=== PATIENT | female | born 1945 | race Caucasian/White ===

== ENCOUNTER 2020-04-30 13:21 | Outpatient (REF) | payer MEDICARE, SELFPAY | END 2020-04-30 13:22 | disposition home or self-care (01) | LOC: HO.LAB 13:21 | PROVIDERS: PCP Internal Medicine; Visit Provider Internal Medicine | DX: Z20.828 Contact with and (suspected) exposure to other viral communicable diseases (principal) | CPT/HCPCS: 36415; C9803; U0003 ==

== ENCOUNTER 2020-06-12 11:24 | Outpatient (REF) | payer MEDICARE, SELFPAY ==
[2020-06-12 13:30] LABS: Alanine Aminotransferase 53 U/L (0-31); Albumin Level 4.6 g/dL (3.5-5.0); Alkaline Phosphatase 139 U/L (39-117); Aspartate Amino Transferase 33 U/L (5-31); Bilirubin Direct 0.3 mg/dL (0.0-0.5); Bilirubin Total 0.9 mg/dL (0.0-1.0); Cholesterol 172 mg/dL; Glucose Fasting 96 mg/dL (60-99); HDL Cholesterol 53 mg/dL; LDL Cholesterol Calculated 102 mg/dl; Total Protein 6.9 g/dL (6.5-8.0); Triglycerides 87 mg/dL
[2020-06-12 13:52] LABS: Estimated Average Glucose 103 mg/dL; Hemoglobin A1c % 5.2 %
[2020-06-12 13:53] LABS: Reflex LDLD? No
== END 2020-06-12 11:25 | disposition home or self-care (01) ==
LOC: HO.LAB 11:24
PROVIDERS: PCP Internal Medicine; Visit Provider Internal Medicine
DX: R73.03 Prediabetes (principal); E78.00 Pure hypercholesterolemia, unspecified
CPT/HCPCS: 36415; 80061; 80076; 82947; 83036

== ENCOUNTER 2020-10-18 08:25 | Outpatient (REF) | payer MEDICARE, SELFPAY ==
--- NOTE | ~2020-10-18 | MM_ITS ---
EXAMINATION: MM SCREENING DIGITAL BREAST TOMOSYNTHESIS, BILATERAL CLINICAL INFORMATION: Screening. Asymptomatic. The lifetime risk of breast cancer based on the Tyrer-Cuzick Model is 3.2%. COMPARISON: Mammography: 03/16/2019 and studies dating back to 01/15/2014. TECHNIQUE: Digital breast tomosynthesis is performed in both the craniocaudal and mediolateral oblique views along with computer-aided detection (CAD). Synthesized 2D images are generated from the tomosynthesis. Additional right exaggerated craniocaudal view performed. FINDINGS: There are scattered areas of fibroglandular density (ACR BI-RADS breast composition Category b). No new abnormal dominant masses or suspicious grouping of microcalcifications identified. There is again noted to be a stable region of architectural distortion within the central superior aspect of the right breast likely postsurgical in nature. MM/MM tomosynthesis screening BI IMPRESSION: There are no significant changes from prior study. ASSESSMENT: BI-RADS 2: Benign. RECOMMENDATION: Routine annual mammography screening. This patient's information was entered into a reminder system with a target due date for their next mammogram.
== END 2020-10-18 08:26 | disposition home or self-care (01) ==
LOC: HO.MAMMO 08:25
PROVIDERS: PCP Internal Medicine; Visit Provider Internal Medicine
DX: Z12.31 Encounter for screening mammogram for malignant neoplasm of breast (principal)
CPT/HCPCS: 77063; 77067

== ENCOUNTER → 2020-11-05 09:10 | Outpatient (BNVA) | payer MEDICARE, SELFPAY | PROVIDERS: PCP Internal Medicine; Referring Provider Internal Medicine; Visit Provider Internal Medicine Cardiovascular Disease | DX: I25.10 Atherosclerotic heart disease of native coronary artery without angina pectoris (principal); E78.5 Hyperlipidemia, unspecified; R01.1 Cardiac murmur, unspecified | CPT/HCPCS: 93005; 99212 ==

== ENCOUNTER 2020-11-06 06:45 | Outpatient (REF) | payer MEDICARE, SELFPAY ==
[2020-11-06 08:19] LABS: Alanine Aminotransferase 40 U/L (0-31); Albumin Level 4.1 g/dL (3.5-5.0); Alkaline Phosphatase 139 U/L (39-117); Aspartate Amino Transferase 32 U/L (5-31); Bilirubin Direct 0.3 mg/dL (0.0-0.5); Bilirubin Total 0.7 mg/dL (0.0-1.0); Cholesterol 148 mg/dL; HDL Cholesterol 49 mg/dL; LDL Cholesterol Calculated 87 mg/dl; Total Protein 6.5 g/dL (6.5-8.0); Triglycerides 63 mg/dL
--- NOTE | 2020-11-06 14:14 | CA_ITS ---
Transthoracic Echocardiogram Patient (Last, First, Middle): Malorie Duvall A Gender: Female Date of : 1945 Age: 75 Procedure Date: 11/06/2020 Procedure Type: Transthoracic Echocardiogram Location: OP Height: 162.56 cm Weight: 62.14 kg BSA: 1.67 m2 Heart Rate: bpm BP: 120 / 76 mmHg Lube Worker: ANA LAURA Larose MD: Gasper Brenner MD Mower Mechanic: Gasper Brenner MD Symptoms: R01.1 - Cardiac murmur, unspecified Study Quality: Good ECG Rhythm: Sinus Conclusions: - 1. Normal LV systolic function with grade 1 diastolic dysfunction 2. Mild aortic regurgitation with mild fibrocalcific aortic valve changes noted 3. Mildly dilated ascending aorta 4. Mildly elevated right ventricular systolic pressure 5. No pericardial effusion Findings Left Ventricle Normal left ventricular size, thickness, and systolic function. The visually estimated ejection fraction is between 60-65%. Spectral Doppler is indicative of an impaired relaxation filling pattern. E/E prime ratio is <8, consistent with normal filling pressures. Evidence suggests grade I (mild) diastolic dysfunction. Right Ventricle Normal right ventricular cavity size and systolic function. Atria Both atria are normal in size. There is lipomatous hypertrophy of the interatrial septum. There is no evidence of interatrial shunt. Aortic Valve There is mild calcification of the aortic valve. There is mild thickening of the aortic valve. There is no aortic valve stenosis. There is mild aortic valve regurgitation. Mitral Valve There is mild anterior and posterior mitral leaflet thickening. There is mild mitral valve regurgitation. There is no mitral valve stenosis. Pulmonic Valve The pulmonic valve was not well visualized. Tricuspid Valve Likely normal tricuspid valve structure and function. There is mild tricuspid valve regurgitation. Mild pulmonary hypertension is present. Great Vessels The pulmonary artery was not well visualized. There is mild dilatation of the ascending aorta measuring 4.30 cm. Venous The inferior vena cava is normal in size and collapses greater than 50% with inspiration. Pericardium/Pleural There is no evidence of pericardial effusion. Prior Study Comparison Changes noted compared to prior study dated: 12/22/2018. Ascending aorta is mildly dilated Measurements 2D Linear Measurements IVSd: 1.01 0.6-0.9/0.6-1.0 cm LVIDd: 4.29 3.9-5.3/4.2-5.9 cm LVIDd Index: 2.57 2.4-3.2/2.2-3.1 cm/m2 LVIDs: 2.89 2.0-3.6 cm LVPWd: 0.98 0.7-1.1 cm Ao Root: 3.50 2.1-3.5 cm LA Diam: 3.30 2.7-3.8/3.0-4.0 cm LAIDs Index: 1.98 1.5-2.3 cm/m2 LV Mass: 174.85 67-162/88-224 g LV Mass Index: 104.70 43-95/49-115 g/m2 LVOT Diam: 2.20 3.0+(-)1.3 cm 2D Systolic Function EF 4C: 57.50 >55% EF 2C: 60.50 >55% EF BiP: 57.20 >55% Mitral Valve MV Pk E: 0.56 MV PK A: 0.74 MV Decel Time: 271.00 E/A: 0.80 E'Lateral: 5.11 E'Medial: 5.55 E/E' Med: 10.00 E/E' Lat: 10.90 PHT: 79.00 MVA PHT: 2.78 Decel Reynolds: 2.06 Aortic Valve AoV Pk Pavel: 1.74 AoV Mn Pavel: 1.05 AoV VTI: 0.36 AoV Pk Grad: 12.00 Aov Mn Grad: 5.00 HERBERT Cont.VTI: 3.10 AI Pk Pavel: 5.13 AI Reynolds: 3.52 LVOT LVOT Pk Pavel: 1.53 LVOT Mn Pavel: 0.89 LVOT VTI: 0.29 LVOT Pk Grad: 9.00 LVOT Mn Grad: 4.00 LVOT Diam: 2.20 LVOT Area: 3.80 Diastolic Function MV Pk E: 0.56 MV Pk A: 0.74 E/A: 0.80 E'Medial: 5.55 E/E' Med: 10.00 E' Laterial: 5.11 E/E' Lat: 10.90 Tricuspid Valve TR Pk Pavel: 3.03 TR Pk Grad: 37.00 RA Press: 3.00 RVSP: 40.00 Great Vessels Aorta Ao Root-2D: 3.50 2.0-3.7 cm Ao Asc: 4.30 2.1-3.4 cm Ao Arch: 2.90 Updated in Other Vendor System with Status of Final Gasper rBenner MD electronically signed on 11/06/2020 4:25:08 PM with status of Final
== END 2020-11-06 06:46 | disposition home or self-care (01) ==
LOC: HO.LAB 06:45
PROVIDERS: PCP Internal Medicine; Visit Provider Internal Medicine Cardiovascular Disease
DX: I25.10 Atherosclerotic heart disease of native coronary artery without angina pectoris (principal); R01.1 Cardiac murmur, unspecified; E78.5 Hyperlipidemia, unspecified
CPT/HCPCS: 36415; 80061; 80076; 93306

== ENCOUNTER 2020-11-14 07:21 | Outpatient (REF) | payer MEDICARE, SELFPAY ==
[2020-11-14 09:05] LABS: Alanine Aminotransferase 35 U/L (0-31); Albumin Level 4.4 g/dL (3.5-5.0); Alkaline Phosphatase 109 U/L (39-117); Aspartate Amino Transferase 28 U/L (5-31); Bilirubin Direct 0.3 mg/dL (0.0-0.5); Bilirubin Total 0.7 mg/dL (0.0-1.0); Total Protein 6.9 g/dL (6.5-8.0)
== END 2020-11-14 07:22 | disposition home or self-care (01) ==
LOC: HO.LAB 07:21
PROVIDERS: PCP Internal Medicine; Visit Provider Internal Medicine Cardiovascular Disease
DX: E78.5 Hyperlipidemia, unspecified (principal)
CPT/HCPCS: 36415; 80076

== ENCOUNTER 2020-11-25 10:06 | Outpatient (REF) | payer MEDICARE, SELFPAY ==
[2020-11-25 10:09] LABS: MANUAL DIFF FLAG NO
[2020-11-25 10:54] LABS: Basophils Percent Auto 0.6 % (0-2); Eosinophils Absolute Auto 0.1 X10*3/uL (0.0-0.4); Eosinophils Percent Auto 1.3 % (0-4); Hematocrit 41.2 % (37-47); Hemoglobin 13.3 g/dl (12.0-16.0); Imm Gran Abs Auto 0.01 X10*3/uL (0.00-0.03); Imm Gran Pct Auto 0.2 % (0.0-0.4); Lymphocytes Absolute Auto 2.1 X10*3/uL (1.2-4.9); Mean Corpuscular HGB Conc 32.3 g/dl (31.0-35.0); Mean Corpuscular Hemoglobin 29.7 pg (27.0-33.0); Mean Platelet Volume 13.3 fL (9.4-12.3); Monocytes Absolute Auto 0.4 X10*3/uL (0.1-1.2); Monocytes Percent Auto 7.1 % (2-11); Neutrophils Absolute Auto 3.5 X10*3/uL (2.0-8.3); Neutrophils Percent Auto 56.8 % (45-73); Platelet Count 174 X10*3/uL (160-400); Red Blood Count 4.48 X10*6/uL (4.20-5.50); Red Cell Distribution Width 12.9 % (11.0-16.0); White Blood Count 6.2 X10*3/uL (4.8-10.8)
[2020-11-25 11:01] LABS: Glucose Urine UA NEG (NEG); Leukocyte Esterase Urine NEG (NEG); Nitrite Urine NEG (NEG); Urine Blood NEG (NEG); Urine Ketones NEG (NEG); Urine Protein NEG (NEG-TRACE)
[2020-11-25 11:04] LABS: Appearance Urine CLEAR; Color Urine STRAW
[2020-11-25 11:36] LABS: Alanine Aminotransferase 41 U/L (0-31); Albumin Level 4.4 g/dL (3.5-5.0); Alkaline Phosphatase 97 U/L (39-117); Anion Gap 12 (12-20); Aspartate Amino Transferase 32 U/L (5-31); Bilirubin Total 0.8 mg/dL (0.0-1.0); Blood Urea Nitrogen 19 mg/dL (9-16); Carbon Dioxide 26 mmol/L (22-29); Chloride 105 mmol/L (96-108); Estimated Glomerular Filt Rate > 60; Glucose Fasting 101 mg/dL (60-99); Potassium 4.1 mmol/L (3.3-5.1); Sodium 139 mmol/L (135-145)
[2020-11-25 11:57] LABS: Vitamin D 25-OH Total 37.8 ng/mL (>30)
== END 2020-11-25 10:07 | disposition home or self-care (01) ==
LOC: HO.LNP 10:06
PROVIDERS: Visit Provider Internal Medicine
DX: E78.00 Pure hypercholesterolemia, unspecified (principal); M85.80 Other specified disorders of bone density and structure, unspecified site; E55.9 Vitamin D deficiency, unspecified; R73.03 Prediabetes
CPT/HCPCS: 80053; 81003; 82306; 85025

== ENCOUNTER 2020-11-28 07:47 | Outpatient (REF) | payer MEDICARE, SELFPAY ==
[2020-11-28 09:01] LABS: Alanine Aminotransferase 44 U/L (0-31); Albumin Level 4.4 g/dL (3.5-5.0); Alkaline Phosphatase 104 U/L (39-117); Aspartate Amino Transferase 31 U/L (5-31); Bilirubin Direct 0.3 mg/dL (0.0-0.5); Bilirubin Total 0.7 mg/dL (0.0-1.0); Total Protein 6.8 g/dL (6.5-8.0)
== END 2020-11-28 07:48 | disposition home or self-care (01) ==
LOC: HO.LAB 07:47
PROVIDERS: PCP Internal Medicine; Visit Provider Internal Medicine Cardiovascular Disease
DX: E78.5 Hyperlipidemia, unspecified (principal)
CPT/HCPCS: 36415; 80076

== ENCOUNTER 2020-12-22 15:49 | Outpatient (REF) | payer MEDICARE, SELFPAY ==
[2020-12-22 16:04] LABS: Glucose Urine UA NEG (NEG); Leukocyte Esterase Urine 3+ (NEG); Nitrite Urine NEG (NEG); UACC Culture Trigger YES; Urine Blood 2+ (NEG); Urine Ketones NEG (NEG); Urine Protein NEG (NEG-TRACE)
[2020-12-22 16:09] LABS: Appearance Urine HAZY; Color Urine YELLOW
[2020-12-22 16:48] LABS: Squamous Epithelial Cell Urine 1+ /LPF; UACC CULT YES; WBC Urine 50-75 /HPF (0-4)
[2020-12-22 16:49] LABS: Bacteria Urine 2+ /LPF
== END 2020-12-22 15:50 | disposition home or self-care (01) ==
LOC: HO.LNP 15:49
PROVIDERS: Visit Provider Internal Medicine
DX: N30.00 Acute cystitis without hematuria (principal)
CPT/HCPCS: 81001; 87086; 87088; 87186

== ENCOUNTER 2021-01-06 11:26 | Outpatient (REF) | payer MEDICARE, SELFPAY ==
[2021-01-06 12:28] LABS: Appearance Urine CLEAR; Color Urine STRAW; Glucose Urine UA NEG (NEG); Leukocyte Esterase Urine NEG (NEG); Nitrite Urine NEG (NEG); PH 6.5 (5.0-8.0); Urine Blood NEG (NEG); Urine Ketones NEG (NEG); Urine Protein NEG (NEG-TRACE)
[2021-01-06 13:50] LABS: RBC Urine 0 /HPF (0); Squamous Epithelial Cell Urine TRACE /LPF; WBC Urine 0 /HPF (0-4)
== END 2021-01-06 11:27 | disposition home or self-care (01) ==
LOC: HO.LNP 11:26
PROVIDERS: Visit Provider Internal Medicine
DX: Z87.440 Personal history of urinary (tract) infections (principal)
CPT/HCPCS: 81001; 87086

== ENCOUNTER 2021-02-19 09:48 | Outpatient (REF) | payer MEDICARE, SELFPAY ==
[2021-02-19 10:27] LABS: Appearance Urine CLEAR; Color Urine YELLOW; Glucose Urine UA NEG (NEG); Leukocyte Esterase Urine 3+ (NEG); Nitrite Urine POS (NEG); Specific Gravity - Urine <= 1.005 (1.005-1.025); Urine Blood TRACE (NEG); Urine Ketones NEG (NEG); Urine Protein NEG (NEG-TRACE)
[2021-02-19 10:48] LABS: Squamous Epithelial Cell Urine 2+ /LPF
[2021-02-19 10:49] LABS: Bacteria Urine 3+ /LPF; Mucus Urine 1+ /LPF
== END 2021-02-19 09:49 | disposition home or self-care (01) ==
LOC: HO.LNP 09:48
PROVIDERS: Visit Provider Internal Medicine
DX: N89.8 Other specified noninflammatory disorders of vagina (principal)
CPT/HCPCS: 81001; 87086; 87088; 87186

== ENCOUNTER 2021-03-24 12:52 | Outpatient (REF) | payer MEDICARE, SELFPAY ==
--- NOTE | ~2021-03-24 | US_ITS ---
EXAMINATION: US RETROPERITONEAL LIMITED (RENAL ONLY) CLINICAL INFORMATION: Nodule left kidney. COMPARISON: CT abdomen and pelvis 02/22/2019 TECHNIQUE: Real-time imaging of the kidneys. FINDINGS: RIGHT KIDNEY: 10.0 x 3.8 x 4.7 cm (SAG x AP x TRV). The kidney is normal in size, contour, and echogenicity. Renal cortical thickness is normal. No renal calculi or hydronephrosis. There is anechoic cyst with septations in the midpole laterally measuring 4.0 x 3.7 x 3.8 cm. LEFT KIDNEY: 11.0 x 4.2 x 4.3 cm (SAG x AP x TRV). The kidney is normal in size, contour, and echogenicity. Renal cortical thickness is normal. No renal calculi or focal parenchymal lesions. There is mild hydronephrosis with pelvic fullness. US/US renal BI IMPRESSION: Anechoic cyst with septations midpole right kidney measuring 4.0 cm. Mild hydronephrosis versus a pelvic fullness left kidney.
== END 2021-03-24 12:53 | disposition home or self-care (01) ==
LOC: HO.US 12:52
PROVIDERS: PCP Internal Medicine; Visit Provider Internal Medicine
DX: N28.89 Other specified disorders of kidney and ureter (principal)
CPT/HCPCS: 76775

== ENCOUNTER 2021-07-21 10:25 | Outpatient (REF) | payer MEDICARE, SELFPAY ==
[2021-07-21 11:18] LABS: Estimated Average Glucose 105 mg/dL; Hemoglobin A1c % 5.3 %
[2021-07-21 11:21] LABS: Alanine Aminotransferase 25 U/L (0-31); Albumin Level 4.4 g/dL (3.5-5.0); Alkaline Phosphatase 80 U/L (39-117); Aspartate Amino Transferase 21 U/L (5-31); Bilirubin Direct 0.3 mg/dL (0.0-0.5); Bilirubin Total 0.8 mg/dL (0.0-1.0); Cholesterol 178 mg/dL; Glucose Fasting 103 mg/dL (60-99); HDL Cholesterol 47 mg/dL; LDL Cholesterol Calculated 113 mg/dl; Total Protein 6.9 g/dL (6.5-8.0); Triglycerides 90 mg/dL
== END 2021-07-21 10:26 | disposition home or self-care (01) ==
LOC: HO.LNP 10:25
PROVIDERS: Visit Provider Internal Medicine
DX: R73.03 Prediabetes (principal); E78.00 Pure hypercholesterolemia, unspecified
CPT/HCPCS: 80061; 80076; 82947; 83036

== ENCOUNTER 2021-08-22 09:29 | Outpatient (REF) | payer MEDICARE, SELFPAY ==
--- NOTE | ~2021-08-22 | XR_ITS ---
EXAMINATION: XR THORACOLUMBAR SPINE CLINICAL INFORMATION: Pain COMPARISON: None TECHNIQUE: 3 views of the thoracic spine FINDINGS: There is curvature of the lower thoracic and upper lumbar spine to the right. Bone alignment is otherwise normal. No fracture or dislocation is seen. There is multilevel degenerative disc disease greatest in the mid thoracic spine. Paraspinal soft tissues are normal. XR/XR thoracic spine 2V IMPRESSION: Mild curvature of the lower thoracic and upper lumbar spine to the right and degenerative changes.
--- NOTE | ~2021-08-22 | XR_ITS ---
EXAMINATION: XR RIBS, LEFT CLINICAL INFORMATION: Pain COMPARISON: Previous chest x-ray November 2018 TECHNIQUE: 3 views of the left ribs and one view of the chest were obtained. FINDINGS: The cardiac and mediastinal contours are stable. The thoracic aorta is tortuous but unchanged. The lungs are clear. There is no pleural effusion or pneumothorax. There are degenerative changes of the spine and mild scoliosis. There are degenerative changes of the shoulder joints. The left ribs are unremarkable. No fracture or bone lesion is seen. XR/XR ribs LT min 3V w CXR1V IMPRESSION: No evidence for acute disease in the chest. No rib fracture seen.
== END 2021-08-22 09:30 | disposition home or self-care (01) ==
LOC: HO.XRAY 09:29
PROVIDERS: PCP Internal Medicine; Visit Provider Internal Medicine
DX: R07.81 Pleurodynia (principal); M54.9 Dorsalgia, unspecified
CPT/HCPCS: 71101; 72070

== ENCOUNTER 2021-11-04 09:18 | Outpatient (REF) | payer MEDICARE, SELFPAY ==
--- NOTE | ~2021-11-04 | MM_ITS ---
EXAMINATION: MM SCREENING DIGITAL BREAST TOMOSYNTHESIS, BILATERAL CLINICAL INFORMATION: Screening. Asymptomatic. History right excisional biopsy for LCIS, 2001. The lifetime risk of breast cancer based on the Tyrer-Cuzick Model is 5%. COMPARISON: Mammography: 10/18/2020, 03/16/2019, 03/01/2018 TECHNIQUE: Digital breast tomosynthesis is performed in both the craniocaudal and mediolateral oblique views along with computer-aided detection (CAD). Synthesized 2D images are generated from the tomosynthesis. FINDINGS: There are scattered areas of fibroglandular density (ACR BI-RADS breast composition Category b). There are no significant masses, abnormal calcifications, or other abnormalities. No developing density or interval architectural abnormality. There is minor scarring related to prior excisional biopsy again seen on the right with mild decreased breast size as before. The axilla and skin contours are unremarkable. MM/MM tomosynthesis screening BI IMPRESSION: No significant changes from prior exams. ASSESSMENT: BI-RADS 2: Benign RECOMMENDATION: Routine annual mammography screening. This patient's information was entered into a reminder system with a target due date for their next mammogram.
== END 2021-11-04 09:19 | disposition home or self-care (01) ==
LOC: HO.MAMMO 09:18
PROVIDERS: PCP Internal Medicine; Visit Provider Internal Medicine
DX: Z12.31 Encounter for screening mammogram for malignant neoplasm of breast (principal)
CPT/HCPCS: 77063; 77067

== ENCOUNTER → 2021-11-09 09:12 | Outpatient (BNVA) | payer MEDICARE, SELFPAY | PROVIDERS: PCP Internal Medicine; Referring Provider Internal Medicine; Visit Provider Internal Medicine Cardiovascular Disease | DX: I71.2 Thoracic aortic aneurysm, without rupture (principal); I25.10 Atherosclerotic heart disease of native coronary artery without angina pectoris; Z79.899 Other long term (current) drug therapy | CPT/HCPCS: 93005; 99212 ==

== ENCOUNTER 2021-11-13 10:52 | Outpatient (REF) | payer MEDICARE, SELFPAY ==
[2021-11-13 11:12] LABS: Appearance Urine CLEAR; Color Urine YELLOW; Glucose Urine UA NEG (NEG); Leukocyte Esterase Urine NEG (NEG); Nitrite Urine NEG (NEG); PH 7.5 (5.0-8.0); Urine Blood NEG (NEG); Urine Ketones NEG (NEG); Urine Protein NEG (NEG-TRACE)
[2021-11-13 12:04] LABS: Amorphous Sediment Urine 2+ /LPF; RBC Urine 0 /HPF (0); Squamous Epithelial Cell Urine 1+ /LPF
== END 2021-11-13 10:53 | disposition home or self-care (01) ==
LOC: HO.LNP 10:52
PROVIDERS: Visit Provider Internal Medicine
DX: N30.00 Acute cystitis without hematuria (principal)
CPT/HCPCS: 81001; 87086

== ENCOUNTER → 2021-12-16 10:09 | Outpatient (REF) | payer MEDICARE, SELFPAY ==
--- NOTE | 2021-12-16 10:14 | CA_ITS ---
Transthoracic Echocardiogram Patient (Last, First, Middle): Malorie Duvall A Gender: Female Date of : 1945 Age: 76 Procedure Date: 12/16/2021 Procedure Type: Transthoracic Echocardiogram Location: OP Height: 165.1 cm Weight: 62.6 kg BSA: 1.69 m2 Heart Rate: bpm BP: 115 / 78 mmHg Tie Presser: TO Referring MD: Gasper Brenner MD Symptoms: I71.2 - Thoracic aortic aneurysm, without rupture Study Quality: Adequate ECG Rhythm: Sinus Conclusions: - The left ventricular systolic function is normal. The calculated ejection fraction is 60% by biplane method. - There is mild aortic valve regurgitation. - There is mild mitral valve regurgitation. - There is mild dilatation of the sinuses of Valsalva measuring 4.14 cm, moderate dilatation of the ascending aorta measuring 4.50 cm, and mild dilatation of the aortic arch measuring 4.00 cm. Findings Left Ventricle Normal left ventricular cavity size. There is normal left ventricular wall thickness. The left ventricular systolic function is normal. The calculated ejection fraction is 60% by biplane method. There is no evidence of regional wall motion abnormalities. Diastolic function is normal for age. Right Ventricle Normal right ventricular cavity size and systolic function. Atria Both atria are normal in size. Aortic Valve There is a normal trileaflet aortic valve. There is mild calcification of the aortic valve. There is no aortic valve stenosis. There is mild aortic valve regurgitation. Mitral Valve The mitral valve appears normal. There is mild mitral valve regurgitation. There is no mitral valve stenosis. Pulmonic Valve The pulmonic valve is likely normal. Tricuspid Valve Normal tricuspid valve structure. There is mild tricuspid valve regurgitation. The pulmonary artery systolic pressure is normal. Great Vessels There is mild dilatation of the sinuses of Valsalva measuring 4.14 cm, moderate dilatation of the ascending aorta measuring 4.50 cm, and mild dilatation of the aortic arch measuring 4.00 cm. Small plaque is seen in the sino tubular ridge. Venous The inferior vena cava is normal in size and collapses greater than 50% with inspiration. Pericardium/Pleural There is no evidence of pericardial effusion. Prior Study Comparison Changes noted compared to prior study dated: 11/06/2020. See comments on aorta. Measurements 2D Linear Measurements IVSd: 0.89 0.6-0.9/0.6-1.0 cm LVIDd: 4.74 3.9-5.3/4.2-5.9 cm LVIDd Index: 2.80 2.4-3.2/2.2-3.1 cm/m2 LVIDs: 2.77 2.0-3.6 cm LVPWd: 0.88 0.7-1.1 cm LA Diam: 3.10 2.7-3.8/3.0-4.0 cm LAIDs Index: 1.83 1.5-2.3 cm/m2 LV Mass: 175.25 67-162/88-224 g LV Mass Index: 103.70 43-95/49-115 g/m2 LVOT Diam: 2.20 3.0+(-)1.3 cm 2D Systolic Function EF 4C: 56.50 >55% EF 2C: 61.70 >55% EF BiP: 59.70 >55% Mitral Valve MV Pk E: 0.48 MV PK A: 0.66 MV Decel Time: 262.00 E/A: 0.70 E'Lateral: 5.44 E'Medial: 4.90 E/E' Med: 9.80 E/E' Lat: 8.80 PHT: 77.00 MVA PHT: 2.86 Decel [place]: 1.83 Aortic Valve AoV Pk Pavel: 1.35 AoV Mn Pavel: 0.94 AoV VTI: 0.29 AoV Pk Grad: 7.00 Aov Mn Grad: 4.00 HERBERT Cont.VTI: 3.51 AI Pk Pavel: 4.15 AI [place]: 1.72 LVOT LVOT Pk Pavel: 1.20 LVOT Mn Pavel: 0.83 LVOT VTI: 0.27 LVOT Pk Grad: 6.00 LVOT Mn Grad: 3.00 LVOT Diam: 2.20 LVOT Area: 3.80 Diastolic Function MV Pk E: 0.48 MV Pk A: 0.66 E/A: 0.70 E'Medial: 4.90 E/E' Med: 9.80 E' Laterial: 5.44 E/E' Lat: 8.80 Right Ventricle TAPSE (mm): 22.30 TVS' Pavel: 11.20 Tricuspid Valve TR Pk Pavel: 2.61 TR Pk Grad: 27.00 RA Press: 3.00 RVSP: 30.00 Great Vessels Aorta Sinus of Valsalva: 4.14 2.0-3.[address] [place]: 3.10 1.7-3.4 cm Ao Asc: 4.50 2.1-3.4 cm Ao Arch: 4.00 Updated in Other Vendor System with Status of Final Marcelino Jon MD electronically signed on 12/17/2021 2:46:14 PM with status of Final
== END ==
LOC: HO.CARD 10:09
PROVIDERS: Visit Provider Internal Medicine Cardiovascular Disease
DX: I71.2 Thoracic aortic aneurysm, without rupture (principal)
CPT/HCPCS: 93306

== ENCOUNTER 2022-01-05 11:37 | Outpatient (REF) | payer MEDICARE, SELFPAY ==
[2022-01-05 12:07] LABS: Eosinophils Absolute Auto 0.1 X10*3/uL (0.0-0.4); Eosinophils Percent Auto 1.2 % (0-4); Red Cell Distribution Width 12.9 % (11.0-16.0); SCAN SMEAR FLAG 1
[2022-01-05 12:08] LABS: Appearance Urine Turbid; Color Urine Yellow; Glucose Urine UA Negative (Negative); Leukocyte Esterase Urine Negative (Negative); Nitrite Urine Negative (Negative); Urine Blood Negative (Negative); Urine Ketones Negative (Negative); Urine Protein Negative (Neg-Trace)
[2022-01-05 12:09] LABS: Basophils Percent Auto 0.7 % (0-2); Hematocrit 40.7 % (37.0-47.0); Hemoglobin 13.3 g/dl (12.0-16.0); Imm Gran Abs Auto 0.01 X10*3/uL (0.00-0.03); Imm Gran Pct Auto 0.2 % (0.0-0.4); Lymphocytes Absolute Auto 1.6 X10*3/uL (1.2-4.9); Lymphocytes Percent Auto 27.3 % (20-40); Mean Corpuscular HGB Conc 32.7 g/dl (31.0-35.0); Mean Corpuscular Volume 88.9 fL (80.0-98.0); Mean Platelet Volume 13.1 fL (9.4-12.3); Monocytes Absolute Auto 0.5 X10*3/uL (0.1-1.2); Monocytes Percent Auto 7.7 % (2-11); Neutrophils Absolute Auto 3.8 x10*3/uL (2.0-8.3); Neutrophils Percent Auto 62.9 % (45-73); Platelet Count 179 X10*3/uL (160-400); Red Blood Count 4.58 X10*6/uL (4.20-5.50)
[2022-01-05 12:10] LABS: PLT ABN DIST 1
[2022-01-05 12:11] LABS: MANUAL DIFF FLAG NO
[2022-01-05 12:12] LABS: Estimated Average Glucose 105 mg/dL; Hemoglobin A1c % 5.3 %
[2022-01-05 12:23] LABS: Alanine Aminotransferase 25 U/L (0-31); Albumin Level 4.2 g/dL (3.5-5.0); Alkaline Phosphatase 74 U/L (39-117); Anion Gap 12 (12-20); Aspartate Amino Transferase 21 U/L (5-31); Bilirubin Total 0.8 mg/dL (0.0-1.0); Blood Urea Nitrogen 19 mg/dL (9-16); Calcium 8.9 mg/dL (8.4-10.2); Carbon Dioxide 27 mmol/L (22-29); Chloride 104 mmol/L (96-108); Cholesterol 183 mg/dL; Estimated Glomerular Filt Rate > 60; Glucose Fasting 97 mg/dL (60-99); HDL Cholesterol 51 mg/dL; LDL Cholesterol Calculated 116 mg/dl; Potassium 4.2 mmol/L (3.3-5.1); Sodium 139 mmol/L (135-145); Total Protein 6.8 g/dL (6.5-8.0); Triglycerides 81 mg/dL
[2022-01-05 12:31] LABS: Bacteria Urine None Seen (None Seen); Hyaline Casts Urine 0-2 /LPF (0-2); RBC Urine 0-2 /HPF (0-2); Squamous Epithelial Cell Urine 0-2 /HPF (0-2); WBC Urine 0-5 /HPF (0-5)
[2022-01-05 12:37] LABS: Creatinine Urine 29.71 mg/dL; Microalbumin Urine < 5.0 mg/L
[2022-01-05 12:44] LABS: Vitamin D 25-OH Total 33.6 ng/mL (>30)
== END 2022-01-05 11:38 | disposition home or self-care (01) ==
LOC: HO.LNP 11:37
PROVIDERS: Visit Provider Internal Medicine
DX: R73.03 Prediabetes (principal); I10 Essential (primary) hypertension; E78.00 Pure hypercholesterolemia, unspecified; E55.9 Vitamin D deficiency, unspecified
CPT/HCPCS: 80053; 80061; 81001; 82043; 82306; 83036; 85025

== ENCOUNTER 2022-03-25 09:20 | Outpatient (REF) | payer MEDICARE, SELFPAY ==
--- NOTE | ~2022-03-25 | US_ITS ---
EXAMINATION: US RETROPERITONEAL LIMITED (RENAL ONLY) CLINICAL INFORMATION: Kidney nodule. COMPARISON: Renal ultrasound 03/24/2021. CT abdomen and pelvis 02/22/2019. TECHNIQUE: Real-time imaging of the kidneys. FINDINGS: RIGHT KIDNEY: 10.5 x 3.4 x 4.0 cm (SAG x AP x TRV). The kidney is normal in size, contour, and echogenicity. Renal cortical thickness is normal. No hydronephrosis. There is an anechoic cyst in the midpole measuring 4.0 x 3.9 x 3.6 cm. An non-obstructive echogenic stone in the midpole measures 1.2 cm. LEFT KIDNEY: 10.1 x 3.7 x 3.9 cm (SAG x AP x TRV). The kidney is normal in size, contour, and echogenicity. Renal cortical thickness is normal. No renal calculi or hydronephrosis. There is anechoic cyst in the midpole measuring 1.0 x 1.1 x 0.9 cm. US/US renal BI IMPRESSION: 1. Bilateral renal cysts. 2. Non-obstructive echogenic stone midpole right kidney.
== END 2022-03-25 09:21 | disposition home or self-care (01) ==
LOC: HO.US 09:20
PROVIDERS: Visit Provider Internal Medicine
DX: N28.89 Other specified disorders of kidney and ureter (principal)
CPT/HCPCS: 76775

== ENCOUNTER 2022-07-08 11:26 | Outpatient (REF) | payer MEDICARE, SELFPAY ==
[2022-07-08 12:57] LABS: Estimated Average Glucose 108 mg/dL; Hemoglobin A1c % 5.4 %
[2022-07-08 13:48] LABS: Alanine Aminotransferase 21 U/L (0-31); Albumin Level 4.2 g/dL (3.5-5.0); Alkaline Phosphatase 73 U/L (39-117); Aspartate Amino Transferase 20 U/L (5-31); Bilirubin Direct 0.2 mg/dL (0.0-0.5); Bilirubin Total 0.8 mg/dL (0.0-1.0); Cholesterol 180 mg/dL; Glucose Fasting 98 mg/dL (60-99); HDL Cholesterol 53 mg/dL; LDL Cholesterol Calculated 115 mg/dl; Total Protein 6.5 g/dL (6.5-8.0); Triglycerides 60 mg/dL
== END 2022-07-08 11:27 | disposition home or self-care (01) ==
LOC: HO.LNP 11:26
PROVIDERS: Visit Provider Internal Medicine
DX: Z13.89 Encounter for screening for other disorder (principal)
CPT/HCPCS: 80061; 80076; 82947; 83036

== ENCOUNTER 2022-11-10 09:16 | Outpatient (REF) | payer MEDICARE, SELFPAY ==
--- NOTE | ~2022-11-10 | MM_ITS ---
EXAMINATION: MM SCREENING DIGITAL BREAST TOMOSYNTHESIS, BILATERAL CLINICAL INFORMATION: Screening. Asymptomatic. History right excisional biopsy for LCIS, 2001. The lifetime risk of breast cancer based on the Tyrer-Cuzick Model is 2.9%. COMPARISON: Mammography: 11/04/2021, 10/18/2020, and dating back to 2014. TECHNIQUE: Digital breast tomosynthesis is performed in both the craniocaudal and mediolateral oblique views along with computer-aided detection (CAD). Synthesized 2D images are generated from the tomosynthesis. FINDINGS: There are scattered areas of fibroglandular density (ACR BI-RADS breast composition Category b). There are no suspicious masses, suspicious grouped calcifications, or areas of parenchymal distortion. The parenchymal pattern is unchanged. Stable architectural distortion right breast from prior excisional biopsy. MM/MM tomosynthesis screening BI IMPRESSION: No mammographic evidence of malignancy. ASSESSMENT: BI-RADS BI-RADS 2 - Benign Findings RECOMMENDATION: Routine annual mammography screening. 1 year F/U This examination should not preclude the clinical evaluation of a suspicious palpable abnormality. This patient's information was entered into a reminder system with a target due date for their next mammogram.
== END 2022-11-10 09:17 | disposition home or self-care (01) ==
LOC: HO.MAMMO 09:16
PROVIDERS: PCP Internal Medicine; Visit Provider Internal Medicine
DX: Z12.31 Encounter for screening mammogram for malignant neoplasm of breast (principal)
CPT/HCPCS: 77063; 77067

== ENCOUNTER → 2022-11-10 09:30 | Outpatient (BNV) | payer MEDICARE, SELFPAY | PROVIDERS: PCP Internal Medicine; Visit Provider Radiology Diagnostic Radiology | DX: Z12.31 Encounter for screening mammogram for malignant neoplasm of breast (principal) | CPT/HCPCS: 77063; 77067 ==

== ENCOUNTER 2022-11-11 09:26 | Outpatient (AMB) | payer MEDICARE, SELFPAY ==
--- NOTE | 2022-11-11 09:34 | A.OFFVIS_ITS ---
Intake Vital Signs 11/11/22 09:37 Height 5 ft 4 in Weight 138 lb 14.259 oz BMI 23.8 BP 120/74 Blood Pressure Location Lt brachial Position Sitting Pulse 66 Intake Visit Reasons: 1 year follow up Intake Note: 1 year follow-up with ekg feeling good Stove Refinisher Required: No Allergies No Known Allergies [No Known Allergies*] Allergy (Unverified 01/10/20 14:54) Medication List - Last Reconciled 11/11/22 by Gasper Brenner MD amlodipine 5 mg PO DAILY aspirin 81 mg PO DAILY atorvastatin 20 mg PO DAILY 90 days cholecalciferol (vitamin D3) 25 mcg PO DAILY omega-3 fatty acids (Fish Oil Concentrate) 1,000 mg PO DAILY HPI HPI Comments History of Present Illness Details Malorie comes for follow-up. Continues to remain active. She denies any symptoms of exertional chest pain or shortness of breath. Denies any palpitations, lightheadedness, syncope. No orthopnea, PND, leg edema. Denies any orthopnea, PND, leg edema. PFSH Medical History CAD (coronary artery disease) HTN (hypertension) Hyperlipidemia Surgical History Hx of colonoscopy Hx of vaginal hysterectomy Family History Father CVD (cardiovascular disease) Mother Cancer CVD (cardiovascular disease) Social History Patient Tobacco Use Status: Never used Tobacco Review of Systems Const Denies chills, Denies fatigue, Denies fever(s), Denies frequent falls, Denies weakness, Denies weight gain and Denies weight loss ENT Denies dizziness Card Denies chest pain, Denies leg edema, Denies lightheadedness, Denies pal pitations, Denies dyspnea, Denies dyspnea on exertion, Denies orthopnea and Denies other (loss of consciousness) Resp Denies cough, Denies dyspnea and Denies dyspnea on exertion GI Denies hematochezia and Denies change in stool character Musc Denies abnormal gait, Denies muscle weakness, Denies numbness, Denies radiating pain into limb and Denies tingling Neuro Denies abnormal gait, Denies dizziness, Denies frequent falls, Denies numbness, Denies tingling and Denies weakness Endo Denies fatigue and Denies palpitations Physical Exam Vital Signs: Last Vital Signs Pulse 66 11/11/22 09:37 BP 120/74 11/11/22 09:37 BMI result Body Mass Index 23.8 Const General: cooperative, comfortable, no acute distress, alert, awake and well groomed Nutritional Appearance: average body habitus Orientation/consciousness: patient oriented x3 Limitations: no limitations Neck Neck: Yes trachea midline, Yes supple and Yes no JVD Resp Effort & Inspection: normal respiratory effort Auscultation: clear to auscultation bilaterally Cardio Jugular venous distension: no JVD Palpation: normal PMI Rate: regular rate Rhythm: regular rhythm Heart sounds: S1 normal heart sound present, S2 normal heart sound present, no click, no gallops, Murmur heart sound present systolic early, decrescendo and crescendo and no rubs GI Auscultation: normal bowel sounds Skin General skin exam: no rashes or lesions noted Neuro General: patient oriented x3 and no focal motor deficits Extrem General: Yes no clubbing, cyanosis or edema Psych Appearance: grossly normal Office Procedures EKG Details: EKG shows normal sinus rhythm with normal EKG [id number], Complete Assessment & Plan Assessment & Plan (1) Ascending aortic aneurysm: Code(s): I71.2 - Thoracic aortic aneurysm, without rupture Plan: Ascending aortic aneurysm, moderate in severity. No symptoms related to it. Will monitor with echocardiogram on annual basis. Next echocardiogram next month. Continue aggressive blood pressure control which is currently well optimized. Advised to avoid sudden strenuous isometric exercise. No indication for repair at this point in time. (2) CAD (coronary artery disease): Comment: Proximal LAD 40%, D1 ostial 65% by cardiac catheterization November 2018 Code(s): I25.10 - Atherosclerotic heart disease of [place] coronary artery without angina pectoris Plan: CAD stable without any symptoms of angina. No further workup is indicated. Continue aggressive medical therapy. Continue low-dose aspirin therapy for life. Blood pressure is currently well optimized, continue current therapy. Advised to continue statin therapy with target goal LDL closer to 60 mg/dL. Will follow up in the clinic in 1 year's time, sooner p.r.n.. Thank you for allowing me to partake in his care Coding Level of Care Code Est Pt Level 4 (35999) Diagnoses Ascending aortic aneurysm I71.2 CAD (coronary artery disease) I25.10 CPT Codes EKG - CPT: [id number], Complete ([id number])
[2022-11-11 09:37] VITALS: BP 120/74; PULSE 66; BMI 23.8
== END 2022-11-11 09:56 | disposition home or self-care (01) ==
PROVIDERS: Visit Provider Internal Medicine Cardiovascular Disease
DX: I71.20 Thoracic aortic aneurysm, without rupture, unspecified (principal); I25.10 Atherosclerotic heart disease of native coronary artery without angina pectoris
CPT/HCPCS: 93010; 99214

== ENCOUNTER → 2022-11-11 09:26 | Outpatient (BNVA) | payer MEDICARE, SELFPAY | PROVIDERS: Visit Provider Internal Medicine Cardiovascular Disease | DX: I71.20 Thoracic aortic aneurysm, without rupture, unspecified (principal); I25.10 Atherosclerotic heart disease of native coronary artery without angina pectoris | CPT/HCPCS: 93005; 99212 ==

== ENCOUNTER → 2022-12-14 08:34 | Outpatient (REF) | payer MEDICARE, SELFPAY ==
--- NOTE | 2022-12-14 08:46 | CA_ITS ---
Transthoracic Echocardiogram Patient (Last, First, Middle): Malorie Duvall A Gender: Female Date of : 1945 Age: 77 Procedure Date: 12/14/2022 Procedure Type: Transthoracic Echocardiogram Location: OP Height: 160.02 cm Weight: 63.05 kg BSA: 1.66 m2 Heart Rate: bpm BP: 120 / 70 mmHg Custom Designer: EMELINA Referring MD: Gasper Brenner MD Symptoms: I71.2 - Thoracic aortic aneurysm, without rupture Study Quality: Adequate ECG Rhythm: Sinus Conclusions: - The left ventricular systolic function is normal. The calculated ejection fraction is 64% by biplane method. - There is mild calcification of the aortic valve. There is mild aortic valve regurgitation. - There is mild dilatation of the sinuses of Valsalva measuring 4.18 cm, moderate dilatation of the ascending aorta measuring 4.50 cm, and mild dilatation of the aortic arch measuring 4.00 cm. Findings Left Ventricle Normal left ventricular cavity size. There is normal left ventricular wall thickness. The left ventricular systolic function is normal. The calculated ejection fraction is 64% by biplane method. There is no evidence of regional wall motion abnormalities. Evidence suggests grade I (mild) diastolic dysfunction. LV peak GLS -20.6%. Right Ventricle Normal right ventricular cavity size and systolic function. Atria Both atria are normal in size. Aortic Valve There is a normal trileaflet aortic valve. There is mild calcification of the aortic valve. There is no aortic valve stenosis. There is mild aortic valve regurgitation. Mitral Valve The mitral valve appears normal. There is mild mitral valve regurgitation. There is no mitral valve stenosis. Pulmonic Valve There is trace pulmonic valve regurgitation. Tricuspid Valve Normal tricuspid valve structure. There is mild tricuspid valve regurgitation. There is no evidence of pulmonary hypertension. Great Vessels There is mild dilatation of the sinuses of Valsalva measuring 4.18 cm, moderate dilatation of the ascending aorta measuring 4.50 cm, and mild dilatation of the aortic arch measuring 4.00 cm. Small plaque is seen in the sino tubular ridge. Venous The inferior vena cava is mildly dilated and collapses greater than 50% with inspiration. Pericardium/Pleural There is no evidence of pericardial effusion. Prior Study Comparison No significant change compared to prior study dated: 12/16/2021. Measurements 2D Linear Measurements IVSd: 0.89 0.6-0.9/0.6-1.0 cm LVIDd: 4.64 3.9-5.3/4.2-5.9 cm LVIDd Index: 2.80 2.4-3.2/2.2-3.1 cm/m2 LVIDs: 3.38 2.0-3.6 cm LVPWd: 0.96 0.7-1.1 cm LA Diam: 3.30 2.7-3.8/3.0-4.0 cm LAIDs Index: 1.99 1.5-2.3 cm/m2 LV Mass: 180.14 67-162/88-224 g LV Mass Index: 108.52 43-95/49-115 g/m2 LVOT Diam: 2.20 3.0+(-)1.3 cm 2D Systolic Function EF 4C: 55.80 >55% EF 2C: 71.20 >55% EF BiP: 63.80 >55% Mitral Valve MV Pk E: 0.65 MV PK A: 0.90 MV Decel Time: 208.00 E/A: 0.70 E'Lateral: 6.85 E'Medial: 4.79 E/E' Med: 13.50 E/E' Lat: 9.40 PHT: 61.00 MVA PHT: 3.61 Decel [place]: 3.11 Aortic Valve AoV Pk Pavel: 1.52 AoV Mn Pavel: 0.92 AoV VTI: 0.41 AoV Pk Grad: 9.00 Aov Mn Grad: 4.00 HERBERT Cont.VTI: 2.85 AI Pk Pavel: 4.52 AI [place]: 1.73 LVOT LVOT Pk Pavel: 1.32 LVOT Mn Pavel: 0.86 LVOT VTI: 0.31 LVOT Pk Grad: 7.00 LVOT Mn Grad: 4.00 LVOT Diam: 2.20 LVOT Area: 3.80 Diastolic Function MV Pk E: 0.65 MV Pk A: 0.90 E/A: 0.70 E'Medial: 4.79 E/E' Med: 13.50 E' Laterial: 6.85 E/E' Lat: 9.40 Right Ventricle TAPSE (mm): 21.90 TVS' Pavel: 12.70 Tricuspid Valve TR Pk Pavel: 2.23 TR Pk Grad: 20.00 RA Press: 8.00 RVSP: 28.00 Great Vessels Aorta Sinus of Valsalva: 4.18 2.0-3.[address] [place]: 2.92 1.7-3.4 cm Ao Asc: 4.50 2.1-3.4 cm Ao Arch: 4.00 Updated in Other Vendor System with Status of Final Marcelino Jon MD electronically signed on 12/16/2022 10:57:45 AM with status of Final
== END ==
LOC: HO.CARD 08:34
PROVIDERS: PCP Internal Medicine; Visit Provider Internal Medicine Cardiovascular Disease
DX: I71.20 Thoracic aortic aneurysm, without rupture, unspecified (principal)
CPT/HCPCS: 93306; 93356

== ENCOUNTER → 2022-12-14 08:46 | Outpatient (BNV) | payer MEDICARE, SELFPAY | PROVIDERS: PCP Internal Medicine; Visit Provider Internal Medicine | DX: I71.20 Thoracic aortic aneurysm, without rupture, unspecified (principal) | CPT/HCPCS: 93306 ==

== ENCOUNTER 2023-01-18 11:43 | Outpatient (REF) | payer MEDICARE, SELFPAY ==
[2023-01-18 11:49] LABS: MANUAL DIFF FLAG NO
[2023-01-18 12:38] LABS: Alanine Aminotransferase 18 U/L (0-31); Albumin Level 4.2 g/dL (3.5-5.0); Alkaline Phosphatase 72 U/L (39-117); Anion Gap 13 (12-20); Aspartate Amino Transferase 20 U/L (5-31); Bilirubin Total 0.7 mg/dL (0.0-1.0); Blood Urea Nitrogen 19 mg/dL (9-16); Calcium 9.2 mg/dL (8.4-10.2); Carbon Dioxide 23 mmol/L (22-29); Chloride 106 mmol/L (96-108); Cholesterol 167 mg/dL (<200); Estimated Glomerular Filt Rate > 60; Glucose Fasting 93 mg/dL (60-99); HDL Cholesterol 52 mg/dL (>40); LDL Cholesterol Calculated 100 mg/dL (<100); Potassium 4.3 mmol/L (3.3-5.1); Sodium 138 mmol/L (135-145); Total Protein 6.9 g/dL (6.5-8.0); Triglycerides 76 mg/dL (<150)
[2023-01-18 12:40] LABS: Basophils Percent Auto 0.8 % (0-2); Eosinophils Absolute Auto 0.1 X10*3/uL (0.0-0.4); Eosinophils Percent Auto 1.5 % (0-4); Hematocrit 42.3 % (37.0-47.0); Hemoglobin 13.7 g/dl (12.0-16.0); Imm Gran Abs Auto 0.01 X10*3/uL (0.00-0.03); Imm Gran Pct Auto 0.2 % (0.0-0.4); Lymphocytes Absolute Auto 1.6 X10*3/uL (1.2-4.9); Lymphocytes Percent Auto 29.7 % (20-40); Mean Corpuscular HGB Conc 32.4 g/dl (31.0-35.0); Mean Corpuscular Hemoglobin 29.5 pg (27.0-33.0); Monocytes Absolute Auto 0.4 X10*3/uL (0.1-1.2); Neutrophils Absolute Auto 3.2 x10*3/uL (2.0-8.3); Neutrophils Percent Auto 59.8 % (45-73); Platelet Count 172 X10*3/uL (160-400); Red Blood Count 4.65 X10*6/uL (4.20-5.50); Red Cell Distribution Width 12.9 % (11.0-16.0); White Blood Count 5.3 X10*3/uL (4.8-10.8)
[2023-01-18 12:52] LABS: Vitamin D 25-OH Total 55.5 ng/mL (>30)
== END 2023-01-18 11:44 | disposition home or self-care (01) ==
LOC: HO.LNP 11:43
PROVIDERS: Visit Provider Internal Medicine
DX: R73.03 Prediabetes (principal); I10 Essential (primary) hypertension; E55.9 Vitamin D deficiency, unspecified
CPT/HCPCS: 80053; 80061; 82306; 85025

== ENCOUNTER 2023-02-15 11:50 | Outpatient (REF) | payer MEDICARE, SELFPAY ==
[2023-02-15 12:06] LABS: Appearance Urine Turbid; Color Urine Yellow; Glucose Urine UA Negative (Negative); Leukocyte Esterase Urine Negative (Negative); Nitrite Urine Negative (Negative); Specific Gravity - Urine 1.015 (1.005-1.025); Urine Blood Negative (Negative); Urine Ketones Negative (Negative); Urine Protein Negative (Neg-Trace)
[2023-02-15 12:09] LABS: Bacteria Urine None Seen (None Seen); Hyaline Casts Urine 0-2 /LPF (0-2); RBC Urine 0-2 /HPF (0-2); Squamous Epithelial Cell Urine 0-2 /HPF (0-2); WBC Urine 0-5 /HPF (0-5)
[2023-02-15 13:30] LABS: Creatinine Urine 39.05 mg/dL; Microalbumin Urine < 5.0 mg/L
== END 2023-02-15 11:51 | disposition home or self-care (01) ==
LOC: HO.LNP 11:50
PROVIDERS: Visit Provider Internal Medicine
DX: I10 Essential (primary) hypertension (principal); R73.03 Prediabetes
CPT/HCPCS: 81001; 82043; 82570

== ENCOUNTER 2023-08-11 11:44 | Outpatient (REF) | payer MEDICARE, SELFPAY ==
[2023-08-11 13:06] LABS: Alanine Aminotransferase 16 U/L (0-31); Albumin Level 4.1 g/dL (3.5-5.0); Alkaline Phosphatase 64 U/L (39-117); Aspartate Amino Transferase 17 U/L (5-31); Bilirubin Direct 0.2 mg/dL (0.0-0.5); Bilirubin Total 0.6 mg/dL (0.0-1.0); Cholesterol 164 mg/dL (<200); Glucose Fasting 97 mg/dL (60-99); HDL Cholesterol 50 mg/dL (>40); LDL Cholesterol Calculated 100 mg/dL (<100); Total Protein 6.6 g/dL (6.5-8.0); Triglycerides 74 mg/dL (<150)
[2023-08-11 13:09] LABS: Estimated Average Glucose 111 mg/dL; Hemoglobin A1c % 5.5 % (<6.0)
[2023-08-11 17:19] LABS: Reflex LDLD? No
== END 2023-08-11 11:45 | disposition home or self-care (01) ==
LOC: HO.LNP 11:44
PROVIDERS: Visit Provider Internal Medicine
DX: R73.03 Prediabetes (principal); E78.00 Pure hypercholesterolemia, unspecified
CPT/HCPCS: 80061; 80076; 82947; 83036

== ENCOUNTER 2023-11-15 08:37 | Outpatient (AMB) | payer MEDICARE, SELFPAY ==
[2023-11-15 08:42] VITALS: BP 140/60; PULSE 62; BMI 25.0
--- NOTE | 2023-11-15 08:42 | MHC.OFFVIS ---
Vital Signs 11/15/23 08:42 Height 5 ft 4 in Weight 145 lb 15.136 oz BMI 25.0 BP 140/60 H Blood Pressure Location Lt brachial Position Sitting Pulse 62 Pulse Source Monitor Intake Visit Reasons: 1 year follow up [employer] Required: No Accompanied by: Self / Same As Patient Allergies No Known Allergies [No Known Allergies*] Allergy (Unverified 01/10/20 14:54) Medication List - Last Reconciled 11/15/23 by Gasper Brenner MD amlodipine 5 mg PO DAILY aspirin 81 mg PO DAILY atorvastatin 20 mg PO DAILY 90 days cholecalciferol (vitamin D3) 25 mcg PO DAILY omega-3 fatty acids (Fish Oil Concentrate) 1,000 mg PO DAILY HPI Comments Details: Malorie comes for follow-up. Patient denies any cardiac symptoms. Remains active and goes for walks 3 to 4 times a week with her friends. Gets more tired and fatigued in heart weather when she is working outside. No exertional chest pain or shortness of breath. Recent echocardiogram shows most moderate ascending aortic aneurysm. Denies any prolonged palpitation irregular heartbeat. Last LDL 100 mg/dL not well optimized. [facility] Medical History Hyperlipidemia HTN (hypertension) CAD (coronary artery disease) Surgical History Hx of vaginal hysterectomy Hx of colonoscopy Family History Father CVD (cardiovascular disease) Mother Cancer CVD (cardiovascular disease) Social History Patient Tobacco Use Status: Never used Tobacco Review of Systems Const Denies chills, Denies fatigue, Denies fever(s), Denies frequent falls, Denies weakness, Denies weight gain and Denies weight loss ENT Denies dizziness Card Denies chest pain, Denies leg edema, Denies lightheadedness, Denies palpitations, Denies dyspnea and Denies dyspnea on exertion Resp Denies cough, Denies dyspnea and Denies dyspnea on exertion GI Denies hematochezia Musc Denies abnormal gait, Denies muscle weakness, Denies numbness, Denies radiating pain into limb and Denies tingling Neuro Denies abnormal gait, Denies dizziness, Denies frequent falls, Denies numbness, Denies tingling and Denies weakness Endo Denies fatigue and Denies palpitations Physical Exam Vital Signs: Last Vital Signs Pulse 62 11/15/23 08:42 BP 140/60 H 11/15/23 08:42 BMI result Body Mass Index 25.0 Const General: cooperative, comfortable, no acute distress, alert, awake and well groomed Nutritional Appearance: average body habitus Orientation/consciousness: patient oriented x3 Limitations: no limitations Neck Neck: Yes trachea midline, Yes supple and Yes no JVD Resp Effort & Inspection: normal respiratory effort Auscultation: clear to auscultation bilaterally Cardio Jugular venous distension: no JVD Palpation: normal PMI Rate: regular rate Rhythm: regular rhythm Heart sounds: S1 normal heart sound present, S2 normal heart sound present, no click, no gallops, Murmur heart sound present systolic early, decrescendo and crescendo and no rubs GI Auscultation: normal bowel sounds Skin General skin exam: no rashes or lesions noted Neuro General: patient oriented x3 and no focal motor deficits Extrem General: Yes no clubbing, cyanosis or edema Psych Appearance: grossly normal Office Procedures EKG Details: EKG shows normal sinus rhythm with normal EKG 11087-[id number], Complete Assessment & Plan Assessment & Plan (1) Ascending aortic aneurysm: Code(s): I71.2 - Thoracic aortic aneurysm, without rupture Category: Medical Plan: Ascending aortic aneurysm which is moderate. Does not require any surgical intervention at this point time. Will continue aggressive medical therapy. LDL is not well optimized. Will increase atorvastatin to 40 mg daily. Follow-up lipid panel in 3 months time. Her blood pressure is also not well optimized. Repeat blood pressure measured by me was 150 systolic. She says she has been eating a lot more salty chips recently. Advised to reduce her salt intake and continue to monitor blood pressure at home regularly for the next 2 weeks. If blood pressure stabilizes then no further intervention needs to be pursued otherwise will increase amlodipine to 10 mg daily. (2) CAD (coronary artery disease): Comment: Proximal LAD 40%, D1 ostial 65% by cardiac catheterization November 2018 Code(s): I25.10 - Atherosclerotic heart disease of [place] coronary artery without angina pectoris Category: Medical Plan: Nonobstructive CAD without any current anginal symptoms. Continue aggressive medical therapy including aggressive vascular risk factor modifications above. Continue low-dose aspirin therapy. Continue aggressive blood pressure and lipid modification. Advised to call me with any new symptoms. Will follow up in the clinic in 1 year's time, sooner p.r.n.. Thank you for allowing me to partake in her care Coding Level of Care Code Est Pt Level 4 (18651) Diagnoses Ascending aortic aneurysm I71.2 CAD (coronary artery disease) I25.10 CPT Codes EKG - CPT: 19344-[id number], Complete ([id number])
== END 2023-11-15 09:05 | disposition home or self-care (01) ==
PROVIDERS: PCP Internal Medicine; Visit Provider Internal Medicine Cardiovascular Disease
DX: I71.20 Thoracic aortic aneurysm, without rupture, unspecified (principal); I25.10 Atherosclerotic heart disease of native coronary artery without angina pectoris
CPT/HCPCS: 93010; 99214

== ENCOUNTER → 2023-11-15 08:37 | Outpatient (BNVA) | payer MEDICARE, SELFPAY | PROVIDERS: PCP Internal Medicine; Visit Provider Internal Medicine Cardiovascular Disease | DX: I71.20 Thoracic aortic aneurysm, without rupture, unspecified (principal); I25.10 Atherosclerotic heart disease of native coronary artery without angina pectoris; Z79.82 Long term (current) use of aspirin; Z79.899 Other long term (current) drug therapy | CPT/HCPCS: 93005; 99212 ==

== ENCOUNTER 2023-11-16 08:38 | Outpatient (REF) | payer MEDICARE, SELFPAY ==
--- NOTE | ~2023-11-16 | MM_ITS ---
EXAMINATION: MM SCREENING DIGITAL BREAST TOMOSYNTHESIS, BILATERAL CLINICAL INFORMATION: Screening. Asymptomatic. Patient is status post right excisional biopsy for lobular carcinoma in situ diagnosed in 2001. COMPARISON: Mammography: This study is compared with prior exams dating back to 2019. TECHNIQUE: Digital breast tomosynthesis is performed in both the craniocaudal and mediolateral oblique views along with computer-aided detection (CAD). Synthesized 2D images are generated from the tomosynthesis. FINDINGS: There are scattered areas of fibroglandular density (ACR BI-RADS breast composition Category b). There are no significant masses, abnormal calcifications, or other abnormalities. There is minor postsurgical change in the superior aspect of the right breast from prior benign excision. MM/MM tomosynthesis screening BI IMPRESSION: No mammographic evidence of malignancy. ASSESSMENT: BI-RADS BI-RADS 2 - Benign Findings RECOMMENDATION: Routine annual mammography screening. 1 year F/U This examination should not preclude the clinical evaluation of a suspicious palpable abnormality. This patient's information was entered into a reminder system with a target due date for their next mammogram.
== END 2023-11-16 08:39 | disposition home or self-care (01) ==
LOC: HO.MAMMO 08:38
PROVIDERS: PCP Internal Medicine; Visit Provider Internal Medicine
DX: Z12.31 Encounter for screening mammogram for malignant neoplasm of breast (principal)
CPT/HCPCS: 77063; 77067

== ENCOUNTER → 2023-11-16 09:00 | Outpatient (BNV) | payer MEDICARE, SELFPAY | PROVIDERS: PCP Internal Medicine; Visit Provider Radiology Diagnostic Radiology | DX: Z12.31 Encounter for screening mammogram for malignant neoplasm of breast (principal) | CPT/HCPCS: 77063; 77067 ==

== ENCOUNTER 2024-02-01 08:15 | Outpatient (REF) | payer MEDICARE, SELFPAY ==
[2024-02-01 09:32] LABS: Cholesterol 164 mg/dL (<200); HDL Cholesterol 52 mg/dL (>40); LDL Cholesterol Calculated 93 mg/dL (<100); Triglycerides 99 mg/dL (<150)
== END 2024-02-01 08:16 | disposition home or self-care (01) ==
LOC: HO.LAB 08:15
PROVIDERS: PCP Internal Medicine; Visit Provider Internal Medicine Cardiovascular Disease
DX: I25.10 Atherosclerotic heart disease of native coronary artery without angina pectoris (principal)
CPT/HCPCS: 36415; 80061

== ENCOUNTER 2024-02-14 10:58 | Outpatient (REF) | payer MEDICARE, SELFPAY ==
[2024-02-14 11:03] LABS: MANUAL DIFF FLAG NO
[2024-02-14 11:11] LABS: Basophils Percent Auto 0.6 % (0-2); Eosinophils Absolute Auto 0.1 X10*3/uL (0.0-0.4); Eosinophils Percent Auto 0.7 % (0-4); Hematocrit 42.7 % (37.0-47.0); Imm Gran Abs Auto 0.03 X10*3/uL (0.00-0.03); Imm Gran Pct Auto 0.4 % (0.0-0.4); Lymphocytes Absolute Auto 1.9 X10*3/uL (1.2-4.9); Lymphocytes Percent Auto 28.8 % (20-40); Mean Corpuscular HGB Conc 32.8 g/dl (31.0-35.0); Mean Corpuscular Hemoglobin 29.9 pg (27.0-33.0); Mean Platelet Volume 12.9 fL (9.4-12.3); Monocytes Absolute Auto 0.4 X10*3/uL (0.1-1.2); Neutrophils Absolute Auto 4.3 x10*3/uL (2.0-8.3); Neutrophils Percent Auto 63.5 % (45-73); Platelet Count 210 X10*3/uL (160-400); Red Blood Count 4.69 X10*6/uL (4.20-5.50); White Blood Count 6.7 X10*3/uL (4.8-10.8)
[2024-02-14 11:24] LABS: Appearance Urine Turbid; Color Urine Yellow; Glucose Urine UA Negative (Negative); Leukocyte Esterase Urine Negative (Negative); Nitrite Urine Negative (Negative); Specific Gravity - Urine 1.015 (1.005-1.025); Urine Blood Negative (Negative); Urine Ketones Negative (Negative); Urine Protein Negative (Neg-Trace)
[2024-02-14 11:27] LABS: Bacteria Urine None Seen (None Seen); Hyaline Casts Urine 0-2 /LPF (0-2); RBC Urine 0-2 /HPF (0-2); Squamous Epithelial Cell Urine 0-2 /HPF (0-2); WBC Urine 0-5 /HPF (0-5)
[2024-02-14 11:43] LABS: Alanine Aminotransferase 21 U/L (0-31); Albumin Level 4.4 g/dL (3.5-5.0); Alkaline Phosphatase 67 U/L (39-117); Anion Gap 11 (12-20); Aspartate Amino Transferase 23 U/L (5-31); Bilirubin Total 0.7 mg/dL (0.0-1.0); Blood Urea Nitrogen 18 mg/dL (9-16); Calcium 9.5 mg/dL (8.4-10.2); Carbon Dioxide 27 mmol/L (22-29); Chloride 107 mmol/L (96-108); Cholesterol 143 mg/dL (<200); Estimated Glomerular Filt Rate > 60; Glucose Fasting 105 mg/dL (60-99); HDL Cholesterol 54 mg/dL (>40); LDL Cholesterol Calculated 75 mg/dL (<100); Potassium 4.4 mmol/L (3.3-5.1); Sodium 141 mmol/L (135-145); Total Protein 6.9 g/dL (6.5-8.0); Triglycerides 73 mg/dL (<150)
[2024-02-14 11:58] LABS: Vitamin D 25-OH Total 43.4 ng/mL (>30)
[2024-02-14 12:01] LABS: Estimated Average Glucose 111 mg/dL; Hemoglobin A1C 122.6008 umol/L; Hemoglobin A1c % 5.5 % (<6.0); Total Hemoglobin (HGBA1C) 3385.6657 umol/L
[2024-02-14 12:23] LABS: Creatinine Urine 52.48 mg/dL; Microalbumin Urine < 5.0 mg/L
== END 2024-02-14 10:59 | disposition home or self-care (01) ==
LOC: HO.LNP 10:58
PROVIDERS: Visit Provider Internal Medicine
DX: R73.09 Other abnormal glucose (principal); E78.00 Pure hypercholesterolemia, unspecified; E55.9 Vitamin D deficiency, unspecified; I10 Essential (primary) hypertension
CPT/HCPCS: 80053; 80061; 81001; 82043; 82306; 82570; 83036; 85025

== ENCOUNTER 2024-06-18 12:24 | Outpatient (REF) | payer MEDICARE, SELFPAY ==
--- NOTE | ~2024-06-18 | XR_ITS ---
EXAMINATION: XR CHEST CLINICAL INFORMATION: COUGH COMPARISON: 08/22/2021. TECHNIQUE: 2 views of the chest were obtained. FINDINGS: The cardiac, hilar, and mediastinal contours are normal. The aorta is calcified and quite tortuous. The lungs are hyperaerated bilaterally, however clear. There is no pneumothorax or pleural effusion. There is no focal osseous or soft tissue abnormality. There are degenerative spinal changes and shoulder joint changes. XR/XR chest 2V IMPRESSION: Hyperaerated lungs without evidence of active disease. Electronically signed by: Tong Kwan MD 06/18/2024 01:09 PM KATHY
--- OUTSIDE RECORDS SUMMARY | 2024-06-18 14:09 | XMS_ITS ---
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 Name Role Phone Gavin Lentz Primary Care Provider Allergies No Known Allergies REASON FOR VISIT coughing tired light headed x 1 week Covid test was negative this AM, Audio [phone] Medications Medication SIG (Take, Route, Frequency, Duration) [...] weiight at home is 140 BP 12 0/80 no temp Encounters Encounter Location Date Provider Diagnosis Gavin Lentz MD [address] [place] [address] [address] [place] [phone] 06/18/2024 Gavin Lentz Cough R05.9 Assessments Encounter Date Diagnosis (ICD Code) Assessment Notes Treatment Notes Treatment Clinical Notes Section Notes 06/18/2024 Cough (ICD-10 - R05.9) order faxed to [facility] patient's reg Plan Of Treatment Treatment Notes Assessment Notes Cough order faxed to [facility] p atient's reg Pending Test Test Name Order Date XR CHEST 2 VIEW PA & LAT 06/18/2024 Next Appt Details Provider Name:Gavin dailey, 08/16/2024 07:30:00 AM, [address] [place] [address], [address], [phone], Provider Name:Gavin dailey, 08/20/2024 09:15:00 AM, [address] [place] [address], [phone], Provider Name:Gavin dailey, 02/21/2025 11:00:00 AM, [address] [place] [address], [phone], Progress Notes * Malorie RODRIGUEZ ADOB:[birth year] (79 yo F)Acc No.[id number]:06/18/2024 Patient:?Malorie RODRIGUEZ Provider:?Gavin Lentz MD :1945???Age:79 Y???Sex:Female D ate:06/18/2024 Address:[address] [facility] Subjective: * Chief Complaints: * ???1. coughing tired light h eaded x 1 week Covid test was negative this AM. 2. Audio [phone]. * HPI: ???Symptom(s):?Telehealth?Location of provider rendering services:?[address], [address],?Location of patient:?at address listed in demographics for today's visit,?Patient identification confirmed using:?Name, ,?Telehealth method:?Telephone only. Patient not visible to care provider.,?Consent:?Patient verbally consented to treatment, Patient verbally consented to billing insurance company, Patient informed of any privacy concerns related to method of visit,?Total time spend talking with patient (minutes)?0.? * ROS:?General/Constitutional:?Denies?Chills.?Admits?Fatigue.?Denies?Fever.?Denies?Headache.?ENT:?Denies?Sore throat.?Respiratory:?Admits?Cough.?Denies?Shortness of breath at rest.?Denies?Shortness of breath with exertion.?Denies?Sputum production.?Gastrointestinal:?Denies?Diarrhea.?Denies?Nausea.? * Medical History:?Colonoscopy 2002 due in 10 [address] and [address] colon study 03/09, Had cath 2018 showed 65% and 40% that they did not stent dr davila, Hematuria w/u in 2019, Cologuard 12/19/20 negative. * Medications:?Taking Aspirin Low Dose 81 MG Tablet Delayed [...] reviewed and reconciled with the patient * Allergies:?N.K.D.A. Objective: * Vitals:?Ht: 64, Wt: 140, BMI :24.03, BP:120/80, Wt-k.5. weiight at home is 140? BP? 120/80? no temp. Assessment: * Assessment: 1.?Cough - R05.9 (Primary)?? ? Plan: * Treatment: * * The named appointment provid er may or may not be the originator of this progress note, and it is not deemed complete until electronically signed by the appointment provider. Sign off status: Pending * Provider:?Gavin Lentz MD Date:?0 06/18/2024 Generated for Juan taylor/Yeimi/Douglasitting on:?06/18/2024 02:09 PM EST History and Physical Notes * HPI (History of Present Illness) Category Sub-Category Detail Notes Category Not es Symptom(s) Telehealth Location of [facility] rendering services:: [address] [place] [address] Drive, [address] Location of patient:: at address listed in demographics for today's visit Patient identification confirmed using:: Name, Telehealth method:: Telephone only. Tania ent not visible to care provider. Consent:: Patient verbally c onsented to treatment, Patient verbally consented to billing insurance company, Patient informed of any privacy concerns related to method of visit Total time spend talking with patient (m inutes): 0
--- OUTSIDE RECORDS SUMMARY | 2024-06-18 14:09 | XMS_ITS ---
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 Panel Fa st Reviewed date:02/15/2024 05:07:53 PM Interpretation: Performing Lab:[facility], [address] [place] [phone] Notes/Report: Sodium 141 135-145 mmol/L Potassium 4.4 3.3-5.1 mmol/L Chloride 107 96-108 mmol/L Carbon Dioxide 27 22-29 mmol/L Anion Gap 11 12-20 Blood Urea Nitrogen 18 9-16 mg/dL Creatinine 0.72 0.5-1.4 mg/dL Estimated Glomerular Filt Rate > 60 NOTE: For [place] individuals, multiply the result by 1.210. Chronic [...] Panel Reviewed date:02/14/2024 08:36:01 PM Interpretation: Performing Lab:[facility], [address] [place] [phone] Notes/Report: Triglycerides 73 <150 mg/dL Desirable Triglyceride: [...] Total Reviewed date:02/14/2024 08:37:09 PM Interpretation: Performing Lab:[facility], [address] [place] [phone] Notes/Report: Vitamin D 25-OH Total 43.4 >30 [...] Random Reviewed date:02/14/2024 08:35:09 PM Interpretation: Performing Lab:[facility], [address] [place] [phone] Notes/Report: Creatinine Urine 52.48 Microalbumin Urine < 5.0 Microalbum/Creatinine Ratio Ur TNP <30 ug/mg cr Unable to calculate albumin/creatinine ratio due to low microalbumin or creatinine result. Hemoglobin A1c Reviewed date:02/14/2024 08:35:29 PM Interpretation: Performing Lab:[facility], [address] [place] [phone] Notes/Report: Hemoglobin A1c % 5.5 <6.0 % [...] average glucose, using the formula of the P5U-Necgytn Average Glucose study (ADAG), Diabetes Care, Vol.31,#8, Nov. 2007 UA ClnCatch+Micro w/rflx Cul t Reviewed date:02/14/2024 08:44:46 PM Interpretation: Performing Lab:[facility], [address] [place] [phone] Notes/Report: [id number] Urine, Clean Catch Color Urine Yellow Appearance Urine Turbid PH 8.0 5.0-9.0 Glucose Urine UA Negative Negative mg/dL Urine Blood Negative Negative Specific [place] - Urine 1.015 1.005-1.025 Urine Protein Negative [...] Date Provider Diagnosis Gavin Lentz MD [address] [place], [place] [phone] 02/14/2024 Gavin Lentz Prediabetes R73.09 ; Pure [...] Of Treatment Next Appt Details Provider Name:Gavin Daniella Poppyvenecia ier, 08/16/2024 07:30:00 AM, [address], [address], [place], [place], [phone], Provider Name:Gavin Daniella Jordan ier, 08/20/2024 09:15:00 AM, [address] [place] [address], [address], [place], [place], [phone], Provider Name:Gavin Daniella Jordan ier, 02/21/2025 11:00:00 AM, [address] [place] [address], [address], [place], [place], [phone], Progress Notes * Malorie RODRIGUEZ ADOB:[birth year] (78 yo F)Acc No.[id number]:02/14/2024 Progress Note Patient:?Malorie Rodriguez A Provider:?Gavin Lentz MD :1945???Age:78 Y???Sex:Female D ate:02/14/2024 Address:[address] [place], [place] [phone] Subjective: * Chief Complaints: * ???Yearly fasting labs * Medical History:? * Surgical History:? * Hospitalization/Major Diagno stic Procedure:? * Medications:? Objective: Assessment: * Assessment: 1.?Prediabetes - R73.09 ([facility])?2.?Pure hypercholesterolemia - E78.00?3.?Vitamin D deficiency - E55.9?4.?Essential hypertension - I10? Plan: * Treatment: 2.?Pure hypercholesterolemia ?LAB: Complete Blood Count Auto Diff ?LAB: Comprehensive [place]. Panel Fast ?LAB: Lipid Panel ?LAB: Vitamin D 25-OH Total ?LAB: Microalbumin, Random ?LAB: Hemoglobin A1c ?LAB: UA ClnCatch+Micro w/rflx Cult 3.?Vitamin D deficiency?LAB: Complete Blood Count Auto Diff ?LAB: Comprehensive [place]. Panel Fast ?LAB: Lipid Panel ?LAB: Vitamin D 25-OH Total ?LAB: Microalbumin, Random ?LAB: Hemoglobin A1c ?LAB: UA ClnCatch+Micro w/rflx Cult 4.?Essential hypertension?LAB: Complete Blood Count Auto Diff ?LAB: Comprehensive [place]. Panel Fast ?LAB: Lipid Panel ?LAB: Vitamin D 25-OH Total ?LAB: Microalbumin, Random ?LAB: Hemoglobin A1c ?LAB: UA ClnCatch+Micro w/rflx Cult * Immunizations:? Influenza High Dose (Not administered - Refused: Patient decision) * Procedure Codes:?25235 VENIP UNCT, ROUTINE* * * Sign off status: Completed true * Provider:?Gavin Lentz MD Date:?1 Generated for Juan taylor/Yeimi/eTnereidasmitting on:?06/18/2024 02:09 PM EST
--- OUTSIDE RECORDS SUMMARY | 2024-06-18 14:09 | XMS_ITS ---
Author Organization Gavni Lentz MD Address [address] [place], [place] [id number] Care Team Providers Care Real Estate Intern Name Role Phone Gavin Lentz Primary Care [...] kg/m2 02/21/2024 weight is down 2 pounds [facility] 08-18-23 Encounters Encounter Location Date Provider Diagnosis Gavin Lentz MD [address] [place] [address] [place] [phone] 02/21/2024 Gavin Lentz Prediabetes R73.09 ; Pure hypercholesterolemia E78.00 ; Essential hypertension I10 ; Coronary artery disease involving [place] coronary artery of [place] heart without angina pectoris I25.10 ; Vitamin [...] regiment 02/21/2024 Coronary artery dise ase involving [place] coronary artery of [place] heart without angina pectoris (ICD-10 - I25.10) [...] current regiment Coronary artery disease invo lving [place] coronary artery of [place] heart without angina pectoris not having any chest pains. is on statins Vitamin D deficiency stable, will contro l current regiment Depression screening negative screen Next Appt Details Follow Up: 6 Months, Reason: Provider Name:Gavin dailey, 08/16/2024 07:30:00 AM, [address] [place] [address], [address], [phone], Provider Name:Gavin dailey, 08/20/2024 09:15:00 AM, [address] [place] [address], [address], [phone], Provider Name:Gavin dailey, 02/21/2025 11:00:00 AM, [address] [place] [address], [address] [place] [address], [phone], Progress Notes * Malorie RODRIGUEZ ADOB:[birth year] (78 yo F)Acc No.[id number]:02/21/2024 Patient:?Malorie Rodriguez Provider:?Gavin Lentz MD :1945???Age:78 Y???Sex:Female D ate:02/21/2024 Address:[address] [place], [place] [phone] Subjective: * Chief Complaints: * ???Review labs * HPI: ???Depression Screening:?PHQ-9?Little interest or pleasure in doing things?Not at all,?Feeling down, depressed, or hopeless?Not at all,?Trouble falling or staying asleep, or sleeping too much?Not at all,?Feeling tired or having little energy?Not at all,?Poor appetite or overeating?Not at all,?Feeling bad about yourself or that you are a failure, or have let yourself or your family down?Not at all,?Trouble concentrating on things, such as reading the newspaper or watching television?Not at all,?Moving or speaking so slowly that other people could have noticed; or the opposite, being so fidgety or restless that you have been moving around a lot more than usual?Not at all,?Thoughts that you would be better off or of hurting yourself in some way?Not at all,?Total Score?0.?Interpretation and Intervention?Depression Screening Findings?Negative,?Follow-Up for Depression?: review of PHQ-9 found negative result, no follow-up needed.?Communication Needs:?Communication Needs?Does the patient have a hearing impairment?Yes,?If yes, what is the hearing impairment??Hard of hearing,?Does the patient have a vision impairment??Yes,?If yes, what is the vision impairment??Glasses,?Does the patient have a cognition impairment??No.?Fall Risk:?History?Have you had any falls with injury in the past year??No,?Have you had two or more falls in the past year??No.?SDOH Questions:?SDOH Questions?In the past year have you been worried about losing housing??No,?In the past year have you or any family members you live with been unable to get any of the following when it was really needed? Check all that apply:?None.?Symptom(s):? patient is a 78 yo female here for review of recent labs and follow up of chronic issues. sees dr forbes for her aortic aneurysm. * ROS:?General/Constitutional:?Patient denies?fatigue , headache.?Change in appetite?denies.?Chills?denies.?Fever?denies.?Ophthalmologic:?Blurred vision?denies.?Discharge?denies.?Pain?denies.?ENT:?Patient denies?decreased sense of smell , any loss of taste , sore throat.?Decreased hearing?denies.?Sore throat?denies.?Swollen glands?denies.?Endocrine:?Cold intolerance?denies.?Excessive thirst?denies.?Heat intolerance?denies.?Weight loss?denies.?Respiratory:?Cough?denies.?Shortness of breath at rest?denies.?Shortness of breath with exertion?denies.?Wheezing?denies.?Cardiovascular:?Chest pain at rest?denies.?Chest pain with exertion?denies.?Irregular heartbeat?denies.?Shortness of breath?denies.?Gastrointestinal:?Abdominal pain?denies.?Change in bowel habits?denies.?Diarrhea?denies.?Nausea?denies.?Rectal bleeding?denies.?Vomiting?denies .?Genitourinary:?Blood in urine?denies.?Difficulty urinating?denies.?Frequent urination?denies.?Urinary incontinence?Denies.?Musculoskeletal:?Patient denies?muscle aches.?Painful joints?denies.?Weakness?denies.?Peripheral Vascular:?Patient denies?red and blue toes.?Skin:?Dry skin?denies.?Itching?denies.?Denies?Mole(s),? changes in moles, new moles or any lesions of concern.?Denies?Photosensitivity.?Rash?denies.?Neurologic:?Dizziness?denies.?Fainting?denies.?Headache?denies.? * Medical History:? * Surgical History:? * Hospitalization/Major Diagno stic Procedure:? * Family History:?Father: dece ased 65 yrs, Cardiac.?Mother: 65 yrs, CVA and Cancer.?1 brother(s) . 2 son(s) , 1 daughter(s) . .? Denies mental health/substance abuse family history, Denies mental health/substance abuse family history, Denies mental health/substance abuse family history. * Social History:?Tobacco Use:?Tobacco Use/Smoking?Patient is a?former smoker,?How long has it been since you last smoked??> 10 years,?Additional Findings: Tobacco Non-User?Former smoker, currently using no form of tobacco.?Drugs/Alcohol:?Alcohol Screen?Did you have a drink containing alcohol in the past year??Yes,?How often did you have a drink containing alcohol in the past year??2 to 3 times a week (3 points),?How many drinks did you have on a typical day when you were drinking in the past year??1 or 2 drinks (0 point),?How often did you have 6 or more drinks on one occasion in the past year??Never (0 point),?Points?3,?Interpretation?Positive.?Miscellaneous:?no Caffeine. Children: yes. no Community involvements. Exercise: yes, walks 5 days a week 2 miles. Home smoke detector use: yes. Housing: owning. Living with: spouse. Marital status: . Occupation: retired. no Travel outside of the [place]. * Medications:?TakingZetia 10 MG Tablet 1 tablet Orally Once [...] reviewed and reconciled with the patient * Allergies:?N.K.D.A.yes[Aller gies Verified] Objective: * Vitals:?Ht: 64, Wt:145, BMI: 24.89, BP:138/80 weight is down 2 pounds since 08-18-23. * ???Past Orders: ???Lab:Comprehensive [place]. P rohini Fast (Order Date - 02/14/2024) (Collection Date - 02/14/2024) ? Value Reference Range ?Sodium 141 135-145 - mmo l/L ?Bilirubin Total 0.7 0.0- 1.0 - mg/dL ?Aspartate Amino Transferase 23 5-31 - U/L ?Alanine Aminotransferase 21 0-31 - U/L ?Total Protein 6.9 6.5-8. 0 - g/dL ?Albumin Level 4.4 3.5-5. 0 - g/dL ?Alkaline Phosphatase 67 39-117 - U/L ?Potassium 4.4 3.3-5.1 - mmol/L ?Chloride 107 96-108 - mm ol/L ?Carbon Dioxide 27 22-29 - mmol/L ?Anion Gap 11 L 12-20 - ?Blood Urea Nitrogen 18 H 9-16 - mg/dL ?Creatinine 0.72 0.5-1.4 - mg/dL ?Estimated Glomerular Filt Rate > 60 - ?Glucose Fasting 105 H 60-9 9 - mg/dL ?Calcium 9.5 8.4-10.2 - m g/dL ???Lab:Lipid Panel (Order Da 02/14/2024) (Collection Date - 02/14/2024) ? Value Reference Range ?Triglycerides 73 <150 - mg/dL ?Cholesterol 143 <200 - m g/dL ?LDL Cholesterol Calculated 75 <100 - mg/dL ?HDL Cholesterol 54 >40 - mg/dL ???Lab:Vitamin D 25-OH Total (Order 02/14/2024) (Collection Date - 02/14/2024) ? Value Reference Range ?Vitamin D 25-OH Total 43.4 >30 - ng/mL ???Lab:Microalbumin, Random (Order 02/14/2024) (Collection Date - 02/14/2024) ? Value Reference Range ?Creatinine Urine 52.48 - m g/dL ?Microalbumin Urine < 5.0 - mg/L ?Microalbum Creatinine Ratio Ur TNP <30 - ug/mg cr ???Lab:Hemoglobin A1c (Order Date - 02/14/2024) (Collection Date - 02/14/2024) ? Value Reference Range ?Hemoglobin A1c % 5.5 <6. 0 - % ?Estimated Average Glucose 111 - mg/dL ???Lab:Complete Blood Count Auto Diff (Order Date - 02/14/2024) (Collection Date - 02/14/2024) ? Value Reference Range ?White Blood Count 6.7 4. 8-10.8 - X10*3/uL ?Red Blood Count 4.69 4.20 -5.50 - X10*6/uL ?Hemoglobin 14.0 12.0-16.0 - g/dl ?Hematocrit 42.7 37.0-47.0 - % ?Mean Corpuscular Volume 91.0 80.0-98.0 - fL ?Mean Corpuscular Hemoglobin 29.9 27.0-33.0 - pg ?Mean Corpuscular HGB Conc 32.8 31.0-35.0 - g/dl ?Red Cell Distribution Width 13.0 11.0-16.0 - % ?Platelet Count 210 160-4 00 - X10*3/uL ?Mean Platelet Volume 12.9 H 9.4-12.3 - fL ?Neutrophils Percent Auto 63.5 45-73 - % ?Imm Gran Pct Auto 0.4 0. 0-0.4 - % ?Lymphocytes Percent Auto 28.8 20-40 - % ?Monocytes Percent Auto 6.0 2-11 - % ?Eosinophils Percent Auto 0.7 0-4 - % ?Basophils Percent Auto 0.6 0-2 - % ?NRBC Pct Auto 0.0 0.0-0. 2 - /100WBC ?Neutrophils Absolute Auto 4.3 2.0-8.3 - x10*3/uL ?Imm Gran Abs Auto 0.03 0. 00-0.03 - X10*3/uL ?Lymphocytes Absolute Auto 1.9 1.2-4.9 - X10*3/uL ?Monocytes Absolute Auto 0.4 0.1-1.2 - X10*3/uL ?Eosinophils Absolute Auto 0.1 0.0-0.4 - X10*3/uL ?Basophils Absolute Auto 0.0 0.0-0.2 - X10*3/uL ?NRBC Abs Auto 0.000 0.0-0. 012 - X10*3/uL ???Lab:UA ClnCatch+Micro w/r flx Cult (Order Date - 02/14/2024) (Collection Date - 02/14/2024) ? Value Reference Range ?Color Urine Yellow - ?Appearance Urine Turbid - ?PH 8.0 5.0-9.0 - ?Glucose Urine UA Negative Neg ative - mg/dL ?Urine Blood Negative Negative - ?Specific [place] - Urine 1.015 1.005-1.025 - ?Urine Protein Negative Neg-Tr martha - mg/dL ?Urine Ketones Negative Negati ve - mg/dL ?Nitrite Urine Negative Negati ve - ?Leukocyte Esterase Urine Negative Negative - ?RBC Urine 0-2 0-2 - /HPF ?WBC Urine 0-5 0-5 - /HPF ?Squamous Epithelial Cell Urine 0-2 0-2 - /HPF ?Bacteria Urine None Seen None Seen - ?Hyaline Casts Urine 0-2 0-2 - /LPF * Examination: ???General Examination: ?GENERAL APPEARANCE:?well developed, well nourished, in no acute distress.?HEAD:?normocephalic, atraumatic.?EYES:?pupils equal, round, reactive to light and accommodation, sclera non-icteric.?EARS:?normal.?ORAL CAVITY:?mucosa moist.?THROAT:?clear.?NECK/THYROID:?neck supple, full range of motion, no cervical lymphadenopathy, no bruits.?SKIN:?warm and dry, no suspicious lesions.?HEART:?regular rate and rhythm, S1, S2 normal, no murmurs.?LUNGS:?clear to auscultation bilaterally.?BREASTS:?No mass, no lump.?ABDOMEN:?soft, nontender, nondistended, bowel sounds present, normal, no organomegaly , no masses palpable.?RECTAL EXAM:?declined.?FEMALE GENITOURINARY:?done by cut off machine helper.?EXTREMITIES:?no clubbing, cyanosis, or edema.?NEUROLOGIC:?nonfocal, motor strength normal upper and lower extremities, sensory exam intact.? Assessment: * Assessment: 1.?Prediabetes - R73.09 (Chinyere espino)?2.?Pure hypercholesterolemia - E78.00?3.?Essential hypertension - I10?4.?Coronary artery disease involving [place] coronary artery of [place] heart without angina pectoris - I25.10?5.?Vitamin D deficiency - E55.9?6. Depression screening - Z13.31? Plan: * Treatment: 2.?Pure hypercholesterolemia ? Continue Zetia Tablet, 10 MG, 1 tablet, Orally, Once a day;?Continue Atorvastatin Calcium Tablet, 20 MG, TAKE 1 TAB EVERY DAY FOR 90 DAYS ORALLY ONCE A DAY, Orally, Once a day.?? Notes: has reached goal on the zetia, will continue current regiment?? 3.?Essential hypertension? Continue amLODIPine Besylate Tablet, 5 MG, TAKE 1 TABLET BY MOUTH EVERY DAY FOR 90 DAYS, Orally, Once a day.?? Notes: well controlled will continue current regiment?? 4.?Coronary artery disease i nvolving [place] coronary artery of [place] heart without angina pectoris? Notes: not having any chest pains. is on statins?? 5.?Vitamin D deficiency? Continue Vitamin D Tablet, 2000 UNIT, 2 tab, Orally, Once a day.?? Notes: stable, will control current regiment?? 6.?Depression screening? Notes: negative screen?? * Procedure Codes:? * Follow Up:?6 Months * * Sign off status: Completed true * Provider:?Gavin Lentz MD Date:?1 Generated for Juan taylor/Yeimi/Douglasitting on:?06/18/2024 02:09 PM [...] had two or more falls in the year?: No Communication Needs Communication Needs Does the patient have a hearing impairment: Yes ?If yes, what is the hearing impairment? : Hard of hearing Does the patient have a vision impairmen t?: Yes ?If yes, what is the vision impairment?: Glasses Does the patient have a cognition impair ment?: No Examination Category Sub-Category Detail Notes Category Not es General Examination GENERAL APPEARANCE: well dev eloped, well nourished, in no acute distress HEAD: normocephalic, atrau matic EYES: pupils equal, round, reactive to light and accommodation, sclera non- icteric EARS: normal THROAT: clear NECK/THYROID: neck supple, [...] RECTAL EXAM: declined FEMALE GENITOURINARY: done by cut off machine helper ORAL CAVITY: mucosa moist
== END 2024-06-18 12:25 | disposition home or self-care (01) ==
LOC: HO.XRAY 12:24
PROVIDERS: PCP Internal Medicine; Visit Provider Internal Medicine
DX: R05.9 Cough, unspecified (principal)
CPT/HCPCS: 71046

== ENCOUNTER → 2024-06-18 12:27 | Outpatient (BNV) | payer MEDICARE, SELFPAY | PROVIDERS: PCP Internal Medicine; Visit Provider Radiology Diagnostic Radiology | DX: R05.9 Cough, unspecified (principal); J98.4 Other disorders of lung | CPT/HCPCS: 71046 ==

== ENCOUNTER 2024-08-16 10:16 | Outpatient (REF) | payer MEDICARE, SELFPAY ==
[2024-08-16 11:19] LABS: Estimated Average Glucose 105 mg/dL; Hemoglobin A1C 123.8269 umol/L; Hemoglobin A1c % 5.3 % (<6.0); Total Hemoglobin (HGBA1C) 3572.1679 umol/L
[2024-08-16 11:25] LABS: Alanine Aminotransferase 21 U/L (0-31); Albumin Level 4.2 g/dL (3.5-5.0); Alkaline Phosphatase 67 U/L (39-117); Aspartate Amino Transferase 26 U/L (5-31); Bilirubin Direct 0.3 mg/dL (0.0-0.5); Bilirubin Total 0.7 mg/dL (0.0-1.0); Cholesterol 159 mg/dL (<200); Glucose Fasting 96 mg/dL (60-99); HDL Cholesterol 52 mg/dL (>40); LDL Cholesterol Calculated 92 mg/dL (<100); Total Protein 6.9 g/dL (6.5-8.0); Triglycerides 77 mg/dL (<150)
--- OUTSIDE RECORDS SUMMARY | 2024-08-16 11:49 | XMS_ITS ---
Author Organization Gavin Lentz MD Address [address] [place], [place] [phone] Care Team Providers Care Patient Flow Coordinator Name Role Phone Gavin Lentz Primary Care Provider Allergies No Known Allergies REASON FOR VISIT COUGHING 2 WEEKS, audio [phone] Medications Medication SIG (Take, Route, Frequency, Duration) [...] Location Date Provider Diagnosis Gavin Lentz MD [address] [place] [phone] 06/21/2024 Gavin Lentz Bronchitis J40 Assessments Encounter [...] for use Next Appt Details Provider Name:Gavin dailey, 08/20/2024 09:15:00 AM, [address] [place] [address], [place], [place], [phone], Provider Name:Gavin dailey, 02/21/2025 11:00:00 AM, [address] [place] [address], [phone], Progress Notes * Malorie RODRIGUEZ ADOB:[birth year] (79 yo F)Acc No.[id number]:06/21/2024 Patient:?Malorie RODRIGUEZ A Provider:?Gavin Lentz MD :1945???Age:79 Y???Sex:Female D ate:06/21/2024 Address:[address] [place], [place] [phone] Subjective: * Chief Complaints: * ???[facility] [phone] * HPI: ???Symptom(s):?Telehealth?Location of provider rendering services:?[address], [address],?Location of patient:?at address listed in demographics for today's visit,?Patient identification confirmed using:?Name, ,?Telehealth method:?Telephone only. Patient not visible to care provider.,?Consent:?Patient verbally consented to treatment, Patient verbally consented to billing insurance company, Patient informed of any privacy concerns related to method of visit,?Total time spend talking with patient (minutes)?16.?patient is a 79 yo female audio telehealth visit,? here for evaluation of cough for 2 weeks/ xray was negative . * ROS:?General/Constitutional:?Denies?Chills.?Denies?Fatigue.?Denies?Fever.?Denies?Headache.?ENT:?Patient denies?decreased sense of smell, any loss of taste, sore throat.?Denies?Sore throat.?Respiratory:?Admits?Cough.?Denies?Shortness of breath at rest.?Denies?Shortness of breath with exertion.?Admits?Sputum production.?Gastrointestinal:?Denies?Nausea.?Musculoskeletal:?Patient denies?muscle aches.?Peripheral Vascular:?Patient denies?red and blue toes.? * Medical History:? * Surgical History:? * Hospitalization/Major Diagno stic Procedure:? * Medications:?TakingAspirin L ow Dose 81 MG Tablet Delayed Release TAKE [...] Tablet 1 tablet Orally Once a day Not-Taking/PRN Sulfamethoxazole-Trimethoprim 800-160 MG Tablet 1 tablet Orally Twice a day Not-Taking/PRN Estrace 0.1 MG/GM Cream as directed Vaginal Once a day Not-Taking/PRN valACYclovir HCl 1 GM Tablet 2 [...] patient * Allergies:?N.K.D.A.yes[Aller gies Verified] Objective: * Vitals:? Assessment: * Assessment: 1.?Bronchitis - J40 (Primary )??? Plan: * Treatment: * Procedure Codes:? * * Sign off status: Completed true * Provider:?Gavin Lentz MD Date:?0 06/21/2024 Generated for Juan taylor/Yeimi/David on:?08/16/2024 11:49 AM EDT History and Physical Notes * HPI (History of Present Illness) Category Sub-Category Detail Notes Category Not es Symptom(s) Telehealth Location of [facility] rendering services:: [address], [address] patient is a 79 [...]
--- OUTSIDE RECORDS SUMMARY | 2024-08-16 11:49 | XMS_ITS ---
Author Organization Gavin Lentz MD Address [address] [place] [phone] Care Team Providers Care Ten [place] Manager Name Role Phone Gavin Lentz Primary Care Provider [phone] Results Component Value Reference Range Notes Hemoglobin A1c (Not yet revi ewed by provider) Interpretation: Performing Lab:[facility], [address] [place] [phone] Notes/Report: Hemoglobin A1c % 5.3 <6.0 % [...] average glucose, using the formula of the Z3G-Uqmbwgs Average Glucose study (ADAG), Diabetes Care, Vol.31,#8, Nov. 2007 REASON FOR VISIT fasting lipids Encounters Encounter Location Date Provider Diagnosis Gavin Lentz MD [address] [place] [phone] 08/16/2024 Gavin Lentz Prediabetes R73.09 a nd Pure hypercholesterolemia E78.00 Assessments Encounter Date Diagnosis (ICD Code) Assessment Notes Treatment Notes Treatment Clinical Notes Section Notes 08/16/2024 Prediabetes (ICD-10 - R73.09) 08/16/2024 Pure hypercholesterolemia (ICD-10 - E78.00) Plan Of Treatment Pending Test Test Name Order Date Liver Panel 08/16/2024 Glucose Fasting 08/16/2024 Lipid Panel with Reflex 08/16/2024 Hemoglobin A1c 08/16/2024 Next Appt Details Provider Name:Gavin Ortega ier, 08/20/2024 09:15:00 AM, [address] [place] [address], [address], [place], [place], [phone], Provider Name:Gavin Ortega ier, 02/21/2025 11:00:00 AM, [address] [place] [address], [address], [place], [place], [phone], Progress Notes * Malorie RODRIGUEZ ADOB:[birth year] (79 yo F)Acc No.[id number]:08/16/2024 Progress Note Patient:?Malorie RODRIGUEZ Provider:?Gavin Lentz MD :1945???Age:79 Y???Sex:Female D ate:08/16/2024 Address:[address] [place], [place] [phone] Subjective: * Chief Complaints: * ???1. Fasting lipids. * Medical History:? Objective: * Vitals:? Assessment: * Assessment: 1.?Prediabetes - R73.09 (Chinyere espino)???2.?Pure hypercholesterolemia - E78.00??? Plan: * Treatment: 2.?Pure hypercholesterolemia ?LAB: Liver Panel ?LAB: Glucose Fasting ?LAB: Lipid Panel with Reflex ?LAB: Hemoglobin A1c (Collection Date & Time - 08/16/2024 07:30 AM) * Procedure Codes:?05089 VENIP UNCT, ROUTINE* * * The named appointment provid er may or may not be the originator of this progress note, and it is not deemed complete until electronically signed by the appointment provider. Sign off status: Pending * Provider:?Gavin Lentz MD Date:?0 08/16/2024 Generated for Juan taylor/Yeimi/David on:?08/16/2024 11:49 AM EDT
--- OUTSIDE RECORDS SUMMARY | 2024-08-16 11:50 | XMS_ITS ---
Author Organization Gavin Lentz MD Address [address] [place], [place] [phone] Care Team Providers Care Director Of Engineering Name Role Phone Gavin Lentz Primary Care Provider [phone] Allergies No Known Allergies REASON FOR VISIT coughing tired light headed x 1 week Covid test was negative this AM, Audio [phone] Medications Medication SIG (Take, Route, Frequency, Duration) [...] Location Date Provider Diagnosis Gavin Lentz MD [address] [place] [address] [place] [phone] 06/18/2024 Gavin Lentz Cough R05.9 Assessments Encounter Date Diagnosis (ICD Code) Assessment Notes Treatment Notes Treatment Clinical Notes Section Notes 06/18/2024 Cough (ICD-10 - R05.9) order faxed to [facility] patient's reg Plan Of Treatment Treatment Notes Assessment Notes Cough order faxed to [facility] p atient's reg Pending Test Test Name Order Date XR CHEST 2 VIEW PA & LAT 06/18/2024 Next Appt Details Provider Name:Gavin dailey, 08/20/2024 09:15:00 AM, [address] [place] [address], [address] [place] [address], [phone], Provider Name:Gavin dailey, 02/21/2025 11:00:00 AM, [address] [place] [address], [place] [address], [place], [place], [phone], Progress Notes * Malorie RODRIGUEZ ADOB:[birth year] (79 yo F)Acc No.[id number]:06/18/2024 Patient:?Malorie RODRIGUEZ Provider:?Gavin Lentz MD :1945???Age:79 Y???Sex:Female D ate:06/18/2024 Address:[address] [place], [place] [phone] Subjective: * Chief Complaints: * ???1. coughing tired light h eaded x 1 week Covid test was negative this AM. 2. Audio [phone]. * HPI: ???Symptom(s):?Telehealth?Location of provider rendering services:?[address], [address],?Location of patient:?at address listed in demographics for today's visit,?Patient identification confirmed using:?Name, ,?Telehealth method:?Telephone only. Patient not visible to care provider.,?Consent:?Patient verbally consented to treatment, Patient verbally consented to billing insurance company, Patient informed of any privacy concerns related to method of visit,?Total time spend talking with patient (minutes)?16.? * ROS:?General/Constitutional:?Denies?Chills.?Admits?Fatigue.?Denies?Fever.?Denies?Headache.?ENT:?Denies?Sore throat.?Respiratory:?Admits?Cough.?Denies?Shortness of breath at rest.?Denies?Shortness of breath with exertion.?Denies?Sputum production.?Gastrointestinal:?Denies?Diarrhea.?Denies?Nausea.? * Medical History:?Colonoscopy 2002 due in had colonoscopy and ct colon study 03/09, [...] Lentz MD Date:?0 06/18/2024 Generated for Juan taylor/Yeimi/eTransmitting on:?08/16/2024 11:49 AM EDT History and Physical Notes * HPI (History of Present Illness) Category Sub-Category Detail Notes Category Not es Symptom(s) Telehealth Location of [facility] rendering services:: [address] [place] [address], [address] Location of patient:: at address [...]
--- OUTSIDE RECORDS SUMMARY | 2024-08-16 11:50 | XMS_ITS | Patient Health Record ---
Author Organization Gavin Lentz MD Address [address] [place], [place] [address] Care Team Providers Care Warehouse Guard Name Role Phone Gavin Lentz Primary Care Provider Allergies No Known Allergies Results Component Value Reference Range Notes Hemoglobin A1c (Not yet revi ewed by provider) Interpretation: Performing Lab:[facility], [address] [place] [phone] Notes/Report: Hemoglobin A1c % 5.3 <6.0 % [...] average glucose, using the formula of the B3O-[place]it[place] Average Glucose study (ADAG), Diabetes Care, Vol.31,#8, Nov. 2007 Complete Blood Count Auto Di ff Reviewed date:02/14/2024 08:45:06 PM Interpretation: Performing Lab:[facility], [address] [place] [phone] Notes/Report: White Blood Count 6.7 4.8-10.8 X10*3/uL [...] 0.0-0.2 /100WBC Neutrophils Absolute Auto 4.3 2.0-8.3 x10*3/uL Imm Gran Abs Auto 0.03 0.00-0.03 X10*3/uL Lymphocytes Absolute Auto 1.9 1.2-4.9 X10*3/uL Monocytes Absolute Auto 0.4 0.1-1.2 X10*3/uL Eosinophils Absolute Auto 0.1 0.0-0.4 X10*3/uL Basophils Absolute Auto 0.0 0.0-0.2 X10*3/uL NRBC Abs Auto 0.000 0.0-0.012 X10*3/uL Comprehensive [place]. Panel Fa st Reviewed date:02/15/2024 05:07:53 PM Interpretation: Performing Lab:[facility], [address] [place] [address], [place] [address] Notes/Report: Sodium 141 135-145 mmol/L Potassium 4.4 3.3-5.1 mmol/L Chloride 107 96-108 mmol/L Carbon Dioxide 27 22-29 mmol/L Anion Gap 11 12-20 Blood Urea Nitrogen 18 9-16 mg/dL Creatinine 0.72 0.5-1.4 mg/dL Estimated Glomerular Filt Rate > 60 NOTE: For -[place] individuals, multiply the result by 1.210. Chronic [...] Panel Reviewed date:02/14/2024 08:36:01 PM Interpretation: Performing Lab:[facility], [address] [place] [phone] Notes/Report: Triglycerides 73 <150 mg/dL Desirable Triglyceride: [...] Total Reviewed date:02/14/2024 08:37:09 PM Interpretation: Performing Lab:[address] [phone] Notes/Report: Vitamin D 25-OH Total 43.4 >30 [...] Random Reviewed date:02/14/2024 08:35:09 PM Interpretation: Performing Lab:[facility], [address] [place] [phone] Notes/Report: Creatinine Urine 52.48 Microalbumin Urine < 5.0 Microalbum/Creatinine Ratio Ur TNP <30 ug/mg cr Unable to calculate albumin/creatinine ratio due to low microalbumin or creatinine result. Hemoglobin A1c Reviewed date:02/14/2024 08:35:29 PM Interpretation: Performing Lab:[address] [phone] Notes/Report: Hemoglobin A1c % 5.5 <6.0 % [...] average glucose, using the formula of the R1M-[place] Average Glucose study (ADAG), Diabetes Care, Vol.31,#8, Nov. 2007 UA ClnCatch+Micro w/rflx Cul t Reviewed date:02/14/2024 08:44:46 PM Interpretation: Performing Lab:[facility], [address] [place] [phone] Notes/Report: [id number] Urine, Clean Catch Color Urine Yellow Appearance Urine Turbid PH 8.0 5.0-9.0 Glucose Urine UA Negative Negative mg/dL Urine Blood Negative Negative Specific [place] - Urine 1.015 1.005-1.025 Urine Protein Negative Neg-Trace mg/dL Urine Ketones Negative Negative mg/dL Nitrite Urine Negative Negative Leukocyte Esterase Urine Negative Negative RBC Urine 0-2 0-2 /HPF WBC Urine 0-5 0-5 /HPF Squamous Epithelial Cell Urine 0-2 0-2 /HPF Bacteria Urine None Seen None Seen Hyaline Casts Urine 0-2 0-2 /LPF MM tomosynthesis screening B I Reviewed date:12/08/2023 04:54:03 PM Interpretation: Performing Lab: Notes/Report: [address] [place] [address] Mammography Report Signed Patient: Malorie Duvall MR#: [id number] 711 : 1945 Acct:[id number] Age/Sex: 78 / F ADM Date: 11/16/23 Loc: HO.MAMMO Attending Dr: Gavin Lentz MD Ordering Physician: Gavin Lentz MD Results: 2Be nign Findings Date of Service: 11/16/23 Follow Up: 1 Year From Orig ina Mammogram Procedure(s): MM tomosynthesis screening BI Accession Number(s): [id number] cc: Gavin Lentz MD EXAMINATION: MM SCREENING DIGITAL BREAST TOMOSYNTHESIS, BILATERAL CLINICAL INFORMATION: Screening. Asymptomatic. Patient is status post right excisional biopsy for lobular carcinoma in situ diagnosed in 2001. COMPARISON: Mammography: This study is compared with prior exams dating back to 2019. TECHNIQUE: Digital breast tomosynthesis is performed in both the craniocaudal and mediolateral oblique views along with computer-aided detection (CAD). Synthesized 2D images are generated from the tomosynthesis. FINDINGS: There are scattered areas of fibroglandular density (ACR BI-RADS breast composition Category b). There are no significant masses, abnormal calcifications, or other abnormalities. There is minor postsurgical change in the superior aspect of the right breast from prior benign excision. MM/MM tomosynthesis screening BI IMPRESSION: No mammographic evidence of malignancy. ASSESSMENT: BI-RADS BI-RADS 2 - Benign Findings RECOMMENDATION: Routine annual mammography screening. 1 year F/U This examination should not preclude the clinical evaluation of a suspicious palpable abnormality. This patient's information was entered into a reminder system with a target due date for their next mammogram. Dictated By: Caryn Cristina MD Signed By: <Electronically signed by Caryn Cristina MD in [place]> 12/06/232154 DD/ 09 TD/TT: Specifications Checker: [place] [facility] [address] [place] [address] Mammography Report Signed Patient: Baltazar Duvall MR#: [id number] 711 : 1945 Acct:[id number] Age/Sex: 78 / F ADM Date: 11/16/23 Loc: HO.MAMMO Attending Dr: Gavin Lentz MD Ordering Physician: Gavin Lentz MD Results: 2Be nign Findings Date of Service: 11/16/23 Follow Up: 1 Year From Orig ina Mammogram Procedure(s): MM tomosynthesis screening BI Accession Number(s): [id number] cc: Gavin Lentz MD EXAMINATION: MM SCREENING DIGITAL BREAST TOMOSYNTHESIS, BILATERAL CLINICAL INFORMATION: Screening. Asymptomatic. Patient is status po st right excisional biopsy for lobular carcinoma in situ diagnosed in 2001. COMPARISON: Mammography: This study is compared with prior exams dating back to 2019. TECHNIQUE: Digital breast tomosynthesis is performed in both the craniocaudal and mediolateral oblique views along with computer-aided detection (CAD). Synthesized 2D image s are generated from the tomosynthesis. FINDINGS: There are scattered areas of fibroglandular density (ACR BI-RADS breast composition Category b). There are no significant masses, abnormal calcifications, or other abnormalities. There is minor postsurgical change in the superior aspect of the right breast from prior benign excision. MM/MM tomosynthesis screening BI IMPRESSION: No mammographic evidence of malignancy. ASSESSMENT: BI-RADS BI-RADS 2 - Benign Findings RECOMMENDATION: Routine annual mammography screening. 1 year F/U This examination should not preclude the clinical evaluation of a suspicious palpable abnormality. This patient's information was entered into a reminder system with a target due date for their next mammogram. Dictated By: Caryn Cristina MD Signed By: <Electronically signed by Caryn Cristina MD in OV> 12/06/232154 DD/ 09 TD/TT: Specifications Checker: Lipid Panel Reviewed date:02/01/2024 06:23:20 PM Interpretation: Performing Lab:[facility], [address] [place] [phone] Notes/Report: Triglycerides 99 <150 mg/dL Desirable Triglyceride: less than 150 mg/dL Borderline High Triglyceride 150-199 mg/dL High Triglyceride: 200-499 mg/dL Very High Triglyceride: greater than or equal to 5OO mg/dL Cholesterol 164 <200 mg/dL Desirable Cholesterol: less than 200 mg/dL Borderline High Cholesterol: 200-239 mg/dL High Cholesterol: greater than 239 mg/dL LDL Cholesterol Calculated 93 <100 mg/dL Desirable LDL: less than 100 mg/dL Near Optimal/Above Optimal LDL: 110-129 mg/dL Borderline High LDL: 130-159 mg/dL High LDL: 160-189 mg/dL Very High LDL: greater than or equal to 190 mg/dL HDL Cholesterol 52 >40 mg/dL Desirable HDL: greater than 40 mg/dL Note: This HDL assay may give artificially low results in patients with liver disease. XR chest 2V Reviewed date:06/18/2024 05:09:53 PM Interpretation: Performing Lab: Notes/Report: [address] [address] XRay Report Signed Patient: Malorie Duvall MR#: [id number] 711 : 1945 Acct:[id number] Age/Sex: 79 / F ADM Date: 06/18/24 Loc: HO.XRAY Attending Dr: Gavin Lentz MD Ordering Physician: Gavin Lentz MD Date of Service: 06/18/24 Procedure(s): XR chest 2V Accession Number(s): [id number] cc: Gavin Lentz MD EXAMINATION: XR CHEST CLINICAL INFORMATION: COUGH COMPARISON: 08/22/2021. TECHNIQUE: 2 views of the chest were obtained. FINDINGS: The cardiac, hilar, and mediastinal contours are normal. The aorta is calcified and quite tortuous. The lungs are hyperaerated bilaterally, however clear. There is no pneumothorax or pleural effusion. There is no focal osseous or soft tissue abnormality. There are degenerative spinal changes and shoulder joint changes. XR/XR chest 2V IMPRESSION: Hyperaerated lungs without evidence of active disease. Electronically signed by: Tong Kwan MD 06/18/2024 01:09 PM EST RP Dictated By: Tong Kwan MD Signed By: <Electronically signed by Tong Kwan MD in OV> 06/18/24 1309 DD/ 1227 TD/TT: 06/18/24 1240 Specifications Checker: [address] [address] XRay Report Signed Patient: Baltazar Duvall MR#: [id number] 711 : 1945 Acct:[id number] Age/Sex: 79 / F ADM Date: 06/18/24 Loc: HO.XRAY Attending Dr: Gavin Lentz MD Ordering Physician: Gavin Lentz MD Date of Service: 06/18/24 Procedure(s): XR [address] st 2V Accession Number(s): [id number] cc: Gavin Lentz MD EXAMINATION: XR CHEST CLINICAL INFORMATION: COUGH COMPARISON: 08/22/2021. TECHNIQUE: 2 views of the chest were obtained. FINDINGS: The cardiac, hilar, and mediastinal contours are normal. The aorta is calcified and quite tortuous. The lungs are hyperaerated bilaterally, however clear. There is no pneumothorax or pleural effusion. There is no focal osseous or soft tissue abnormality. There are degenerative spinal changes and shoulder joint changes. XR/XR chest 2V IMPRESSION: Hyperaerated lungs without evidence of active disease. Electronically mary d by: Tong Kwan MD 06/18/2024 01:09 PM EST RP Dictated By: Tong Kwan MD Signed By: <Electronically signed by Tong Kwan MD in OV> 06/18/24 1309 DD/ 1227 TD/TT: 06/18/24 1240 Specifications Checker: Wendy Abraham (Not yet reviewed by provider) Interpretation: Performing Lab:[facility], [address] [place] [phone] Notes/Report: Wendy Abraham See Note Specimen held untested for 24 hours; Call to request Chemistry testing. Reason For Referral No Information Medications Medication SIG (Take, Route, Frequency, Duration) Notes Start Date End Date Status amLODIPine Besylate 5 MG TAKE 1 TABLET B Y MOUTH EVERY DAY FOR 90 DAYS Orally Once a day Active Vitamin D 2000 UNIT 2 tab Orally Once a day Active Aspirin Low Dose 81 MG TAKE 1 TABLET BY MOUTH EVERY DAY Orally Once a day for 90 days Active Zetia 10 MG 1 tablet Orally Once a day Not-Taking Estrace 0.1 MG/GM as directed Vaginal Once a day for 30 days 02/13/2021 Not-Takin g Atorvastatin Calcium 20 MG TAKE 1 TAB EVERY DAY FOR 90 DAYS ORALLY ONCE A DAY Orally Once a day Active Sulfamethoxazole-Trimetho prim 800-160 MG 1 tablet Orally Twice a day for 7 days 11/12/2021 Not-Taking Nitrostat 0.4 MG as directed Sublingu [...] a day for 90 days 01/12/2019 Not-Taking Immunizations Vaccine Route Administration Date Status Comme nts Flu Vaccine IM Intramuscular 12/08/2010 Administered DECLINED, PNEUMO Unknown 10/13/2012 Administered Tetanus Unknown 05/04/2010 Administered Covid Vaccine Unknown 06/07/2020 Administered Pfizer SARS-COV-2 Pfizer Unknown 06/28/2020 Administered Shingrix Unknown 01/07/2021 Administered [facility] Shingrix Unknown 03/12/2021 Administered [facility] SARS-COV-2 Pfizer Unknown 02/18/2021 Administered Flu Vaccine Unknown 02/12/2014 Refused PPSV23 (Pnemovax) Unknown 08/28/2013 Refused PPSV23 (Pnemovax) Unknown 08/01/2014 Refused Fluarix Quadrivalent Unknown 03/28/2017 Refused Fluarix Quadrivalent Unknown 05/01/2018 Refused PPSV23 (Pnemovax) Unknown 10/24/2018 Refused Fluarix Quadrivalent Unknown 01/12/2019 Refused PPSV23 (Pnemovax) Unknown 11/29/2019 Refused Prevnar 13 Unknown 11/29/2019 Refused Fluarix Quadrivalent Unknown 06/12/2020 Refused Fluarix Quadrivalent Unknown 06/17/2020 Refused Influenza High Dose Unknown 02/13/2021 Refused Fluarix Quadrivalent Unknown 02/15/2023 Refused Influenza High Dose Unknown 02/14/2024 Refused Social History Tobacco Use: Social History Observation [...] Never (0 point) Points 3 Interpretation Positive Problems Problem Type SNOMED Code ICD Code Onset Dates Problem Status W/U Status Risk Notes Problem 21281632 Vitamin D defici ency (E55.9) Active confirmed Problem 312185211 Osteopenia (M85.80) Active confirmed Problem 99087331 Essential hypert ension (I10) Active confirmed Problem 1637276 Prediabetes (R73.09) Active confirmed Problem 62710988 Thoracic aortic aneurysm without rupture (I71.2) Active confirmed Problem 5990978624703 Coronary artery disease involving [place] coronary artery of [place] heart without angina pectoris (I25.10) Active confirmed Problem 500140586 Vaginal atrophy (N95.2) Active confir med Problem 215692987 Pure hypercholesterolemia (E78.00) Active confirmed Problem 273308827 Nodule of kidney (N28.89) Active confirmed Problem 0327691 Atrial flutter, unspecified type (I48.92) Active confirmed Vital Signs Blood pressure diastolic 80 mm Hg 06/18/2024 heron ight at home is 140 BP 120/80 no temp Height 64 in 06/18/2024 weiight at home is 140 BP 120/80 no temp Blood pressure systolic 120 mm Hg 06/18/2024 weii ght at home is 140 BP 120/80 no temp Weight 140 lbs 06/18/2024 weiight at home is 140 BP 120/80 no temp BMI 24.03 kg/m2 06/18/2024 weiight at home is 140 BP 120/80 no temp Encounters Encounter Location Date Provider Diagnosis Gavin Lentz MD [address] [place] [id number] 06/18/2024 Gavin Lentz Cough R05.9 Gavin Lentz MD [address] [place] [id number] 08/16/2024 Gavin Lentz Prediabetes R73.09 a nd Pure hypercholesterolemia E78.00 Gavin Lentz MD [address] [place] [id number] 08/18/2023 Gavin Lentz Essential hypertensi on I10 ; Prediabetes R73.09 and Pure hypercholesterolemia E78.00 Gavin Lentz MD [address] [id number] 02/14/2024 Gavin Lentz Prediabetes R73.09 ; Pure hypercholesterolemia E78.00 ; Vitamin D deficiency E55.9 and Essential hypertension I10 Gavin Lentz MD [address] [place] [id number] 02/21/2024 Gavin Lentz Prediabetes R73.09 ; Pure hypercholesterolemia E78.00 ; Essential hypertension I10 ; Coronary artery disease involving [place] coronary artery of [place] heart without angina pectoris I25.10 ; Vitamin D deficiency E55.9 and Depression screening Z13.31 Gavin Lentz MD [address] [place] [id number] 06/21/2024 Gavin Lentz Bronchitis J40 Gavin Lentz MD [address] [place] [id number] 01/02/2024 Gavin Lentz Assessments Encounter Date Diagnosis (ICD Code) Assessment Notes Treatment Notes Treatment Clinical Notes Section Notes 06/18/2024 Cough (ICD-10 - R05.9) order faxed to [facility] [place] 08/16/2024 Prediabetes (ICD-10 - R73.09) 08/18/2023 Essential hypertensi on (ICD-10 - I10) doing well on meds, will continue current regiment 02/14/2024 Prediabetes (ICD-10 - R73.09) 02/14/2024 Pure hypercholesterolemia (ICD-10 - E78.00) 02/21/2024 Prediabetes (ICD-10 - R73.09) doing well with good a1c, no need for medication at this time 02/21/2024 Pure hypercholesterolemia (ICD-10 - E78.00) has reached goal on the zetia, will continue current regiment 06/21/2024 Bronchitis (ICD-10 - J40) patient verbalized understanding of medication and directions for use 08/16/2024 Pure hypercholesterolemia (ICD-10 - E78.00) 08/18/2023 Prediabetes (ICD-10 - R73.09) doing well, no need for medication at this time 08/18/2023 Pure hypercholesterolemia (ICD-10 - E78.00) doing well on meds, will continue current regiment 02/14/2024 Vitamin D deficiency (ICD-10 - E55.9) 02/21/2024 Essential hypertensi on (ICD-10 - I10) well controlled will continue current regiment 02/14/2024 Essential hypertensi on (ICD-10 - I10) 02/21/2024 Coronary artery dise ase involving [place] coronary artery of [place] heart without angina pectoris (ICD-10 - I25.10) not having any chest pains. is on statins 02/21/2024 Vitamin D deficiency (ICD-10 - E55.9) stable, will control current regiment 02/21/2024 Depression screening (ICD-10 - Z13.31) negative screen Plan Of Treatment Pending Test Test Name Order Date Electrocardiogram (EKG) 09/16/2015 Electrocardiogram (EKG) 10/21/2017 XR CHEST 2 VIEW PA & LAT 06/18/2024 XR RIBS LT 08/20/2021 Liver Panel 08/16/2024 Glucose Fasting 08/16/2024 Lipid Panel with Reflex 08/16/2024 Hold Gold 08/16/2024 US renal BI 03/26/2021 XR thoracic spine 3V 08/20/2021 US renal BI 03/31/2021 US renal BI 02/13/2021 Hemoglobin A1c 08/16/2024 Next Appt Details Provider Name:Gavin leachr, 08/20/2024 09:15:00 AM, [address] [facility], [address], [place], [place], [phone], Provider Name:Gavin Ortega ier, 02/21/2025 11:00:00 AM, [address], [address], [place], [place], [phone], Insurance Providers Payer Name Payer Address Payer Phone Subscriber Number Group Number Insured Name Patient Relationship to Insured Coverage Start Date Coverage End Date MEDICARE NHIC [address] [place] [address] [id number] Malorie Duvall Self - patient is the insured [employer] [place] [address] [place] [phone] [id number] Malorie Duvall Self - patient is the insured Medical (General) History Medical History History ICD Code colonoscopy 2002 due in had colonosco py and ct colon study 03/09 had cath 2019 showed 65% and 40% that th ey did not stent dr davila hematuria w/u in 2020 cologuard 12/19/20 negative
[2024-08-16 13:17] LABS: Reflex LDLD? No
== END 2024-08-16 10:17 | disposition home or self-care (01) ==
LOC: HO.LNP 10:16
PROVIDERS: Visit Provider Internal Medicine
DX: R73.03 Prediabetes (principal); E78.00 Pure hypercholesterolemia, unspecified
CPT/HCPCS: 80061; 80076; 82947; 83036

== ENCOUNTER 2024-10-03 20:59 | Emergency (ER) | payer MEDICARE, SELFPAY ==
[2024-10-03 21:27] VITALS: BP 165/78; PULSE 77; RESP 14; TEMP 36.8; O2SAT 97; BMI 24.9
--- NOTE | 2024-10-03 21:38 | PC.NURSE ---
Addendum entered by Osiris Meza 10/03/24 21:40: correction- left heel Original Note: wound to right heel cleansed, dressing applied.
--- NOTE | 2024-10-03 21:39 | PC.NURSE ---
patient and report that they are going to leave and patients primary. patient encouraged to stay for treatment in the ED but refused.
--- OUTSIDE RECORDS SUMMARY | 2024-10-03 23:10 | XMS_ITS ---
Author Organization Gavin Lentz MD Address [address] [place], [place] [phone] Care Team Providers Care Educational Programming Director Name Role Phone Gavin Lentz Primary Care Provider [phone] Results Component Value Reference Range Notes Liver Panel Reviewed date:08/16/2024 04:55:31 PM Interpretation: Performing Lab:[address] [id number] Notes/Report: Bilirubin Total 0.7 0.0-1.0 mg/dL Bilirubin Direct 0.3 0.0-0.5 mg/dL Aspartate Amino Transferase 26 5-31 U/L Alanine Aminotransferase 21 0-31 U/L Total Protein 6.9 6.5-8.0 g/dL Albumin Level 4.2 3.5-5.0 g/dL Alkaline Phosphatase 67 39-117 U/L Glucose Fasting Reviewed date:08/16/2024 04:55:22 PM Interpretation: Performing Lab:[address] [id number] Notes/Report: Glucose Fasting 96 60-99 mg/dL Lipid Panel with Reflex Reviewed date:08/16/2024 04:55:05 PM Interpretation: Performing Lab:[facility], [address] [place] [phone] Notes/Report: Triglycerides 77 <150 mg/dL Desirable Triglyceride: [...] A1c Reviewed date:08/16/2024 04:55:13 PM Interpretation: Performing Lab:[facility], [address] [place] [phone] Notes/Report: Hemoglobin A1c % 5.3 <6.0 % [...] average glucose, using the formula of the [id number] Average Glucose study (ADAG), Diabetes Care, Vol.31,#8, Nov. 2007 REASON FOR VISIT fasting lipids Encounters Encounter Location Date Provider Diagnosis Gavin Lentz MD [address] [place] [address] [address] [place], [place] [id number] 08/16/2024 Gavin Lentz Prediabetes R73.09 a nd Pure hypercholesterolemia E78.00 Assessments Encounter Date Diagnosis (ICD Code) Assessment Notes Treatment Notes Treatment Clinical Notes Section Notes 08/16/2024 Prediabetes (ICD-10 - R73.09) 08/16/2024 Pure hypercholesterolemia (ICD-10 - E78.00) Plan Of Treatment Next Appt Details Provider Name:Gavin Ortega ier, 02/21/2025 11:00:00 AM, [address] [facility], [address], [place], [place], [phone], Progress Notes * Malorie RODRIGUEZ ADOB:[birth year] (79 yo F)Acc No.[id number]:08/16/2024 Progress Note Patient:?Malorie RODRIGUEZ Provider:?Gavin Lentz MD :1945???Age:79 Y???Sex:Female D ate:08/16/2024 Address:[address] [place], [place] [phone] Subjective: * Chief Complaints: * ???1. Fasting lipids. * Medical History:? Objective: * Vitals:? Assessment: * Assessment: 1.?Prediabetes - R73.09 (Chinyere srinivas)???2.?Pure hypercholesterolemia - E78.00??? Plan: * Treatment: 2.?Pure hypercholesterolemia ?LAB: Liver Panel (Collection Date & Time - 08/16/2024 07:30 AM) ?LAB: Glucose Fasting (Collection Date & Time - 08/16/2024 07:30 AM) ?LAB: Lipid Panel with Reflex (Collection Date & Time - 08/16/2024 07:30 AM) ?LAB: Hemoglobin A1c (Collection Date & Time - 08/16/2024 07:30 AM) * Procedure Codes:?21531 VENIP UNCT, ROUTINE* * * The named appointment provid er may or may not be the originator of this progress note, and it is not deemed complete until electronically signed by the appointment provider. Sign off status: Pending * Provider:?Gavin Lentz MD Date:?0 08/16/2024 Generated for Juan taylor/Yeimi/eTransmitting on:?10/03/2024 11:10 PM EDT
== END 2024-10-03 23:25 | disposition left against medical advice (07) ==
PROVIDERS: Emergency Provider Emergency Medicine; PCP Internal Medicine
DX: M79.672 Pain in left foot (principal); Z53.21 Procedure and treatment not carried out due to patient leaving prior to being seen by health care provider
CPT/HCPCS: 99281

== ENCOUNTER 2024-10-04 06:24 | Emergency (ER) | payer MEDICARE, SELFPAY ==
--- NOTE | ~2024-10-04 | XR_ITS ---
CLINICAL HISTORY: ?glass in foot 3 view left foot Comparison: None Findings: Decreased bone mineralization. Midfoot sac can not be excluded on these nonweightbearing radiographs. Correlate clinically. No fractures or dislocations. No radiopaque foreign body. Xtdm-ud-qkinkqbt degenerative changes at some levels. IMPRESSION: No radiopaque foreign body. This document has been electronically signed by: Carey Chinchilla MD on 10/04/2024 07:35:21
[2024-10-04 06:27] VITALS: BP 154/78; PULSE 84; RESP 16; TEMP 36.1; O2SAT 99; BMI 24.0
--- NOTE | 2024-10-04 07:05 | ED_ITS ---
HPI - Wound/Laceration General Chief Complaint: Wound/Laceration Stated Complaint: lac left foot Time Seen by Provider: 10/04/24 06:58 Source: patient, family and old records reviewed Mode of arrival: ambulatory Limitations: no limitations History of Present Illness ED Provider: DENY HPI narrative: 79 yo female with PMH of HTN, HLD, CAD here with c/o stepping on a large piece of glass last night. She notes no other fragments noted. She had laceration that bleeds when she walks she is not on thinners. She wrapped it and came for treatment this AM. Not UTD on Tdap. Onset (ago): day(s) (1) Extremity Location: left: foot Place: home Patient tetanus UTD: No Context: accidental Associated symptoms: none Treatments prior to arrival: bandage Related Data Home Medications ?Medication ?Instructions ?Recorded ?Confirmed amlodipine 5 mg tablet 5 mg PO DAILY 11/05/20 11/15/23 aspirin 81 mg tablet,delayed 81 mg PO DAILY 11/05/20 11/15/23 release cholecalciferol (vitamin D3) 25 25 mcg PO DAILY 11/05/20 11/15/23 mcg (1,000 unit) capsule omega-3 fatty acids 1,000 mg 1,000 mg PO DAILY 11/05/20 11/15/23 capsule (Fish Oil Concentrate) Previous Rx's ?Medication ?Instructions ?Recorded atorvastatin 40 mg tablet (Lipitor) 40 mg PO DAILY #30 tabs 11/15/23 ezetimibe 10 mg tablet (Zetia) 10 mg PO DAILY #90 tabs 02/08/24 Allergies Allergy/AdvReac Type Severity Reaction Status Date / Time No Known Allergies Allergy Verified 10/04/24 06:28 [No Known Allergies*] Review of Systems Review of Systems: Constitutional : No Fever, No Chills, Cardiovascular : No Chest Pain, No SOB Respiratory : No Dyspnea Gastrointestinal : No abdominal pain Musculoskeletal : No Joint Swelling Skin : No rash, positive skin laceration Neuro : No Weakness, No Numbness all other systems reviewed and are negative PMFSH Past Medical History Attestation statement: The following information was validated with the patient. Source: old records reviewed Medical History Hyperlipidemia HTN (hypertension) CAD (coronary artery disease) Surgical History Hx of vaginal hysterectomy Hx of colonoscopy Family History Family History Father CVD (cardiovascular disease) Mother Cancer CVD (cardiovascular disease) Social History Social History Patient Tobacco Use Status: Never used Tobacco Smoked in Last 30 Days: No Use of substances other than those prescribed or required for medical reasons: No Advance Directives: No Advance Directives Information Provided: No Do you have a plan to hurt others: No Plan Physical Exam Vital Signs: Vital Signs: Last Vital Signs Temp 96.9 F 10/04/24 06:27 Pulse 84 10/04/24 06:27 Resp 16 10/04/24 06:27 BP 154/78 H 10/04/24 06:27 Pulse Ox 99 10/04/24 06:27 O2 Del Method Room Air 10/04/24 06:27 BMI result Body Mass Index 24.0 Appearance: Alert. Oriented X3. No acute distress. Eyes: Pupils equal, round and reactive to light. ENT: Pharynx normal. Neck: Normal inspection. Neck supple. CVS: Pulses normal. Respiratory: No resp distress Abdomen:atraumatic Skin: Skin warm and dry. Normal skin color. Extremities: No lower extremity edema. L heel linear superficial already closed 2cm wound on plantar surface of the heel, no signs of infection and no FB felt Neuro: Oriented X 3. No motor deficit. No sensory deficit. CN2-12 intact Medications Administered Discontinued Medications Generic Name Dose Route Start Last Admin Trade Name Freq PRN Reason Stop Dose Admin Diphtheria/Tetanus/Acell Pertussis 0.5 ml 10/04/24 07:04 10/04/24 07:40 Diphth,Pertus(Acell),Tet Adult 0.5 Ml Syringe IM 10/04/24 07:05 0.5 ml .ONCE ONE Administration Medical Decision Making Medical Decision Making MDM Narrative: 79 yo female with PMH of HTN, HLD, CAD here with c/o accidental laceration to the L foot - no signs of FB on exam but given she stepped on glass I am going to obtain xray. It is already approximated will be difficult to suture I am going to place surgical glue and padded dressing. Precautions to return for infection. Differential Diagnosis Differential Diagnoses: The differential diagnosis associated with the presentation includes laceration, FB Independent Interpretation I performed an independent interpretation of an: Plain X-Ray (no FB) Radiology Impression Discussion of test interpretation with radiology: I have reviewed the radiologist's reading. Independent Historian Clinical information obtained from an independent historian. History obtained from or confirmed by: Spouse External Record Review External record reviewed: Outpatient record Procedures Laceration Laceration 1: Site: lower extremity Side (If applicable): left Size (cm): 2 Description: linear Depth: simple, single layer Pre-repair: wound explored, irrigated extensively and deep structures inta ct Skin layer closed with: other (dermabond) Discharge Plan Discharge Clinical Impression: Laceration Patient Disposition: Home, Self-Care Instructions: Diphtheria/Acellular Pertussis/Tetanus Booster Vaccine (By injection), Laceration (ED), Skin Adhesive Care (ED) Additional Instructions: monitor for redness, yellow drainage, fevers, increased swelling okay to get wet in 48 hours but minimal keep bulky dressing on for 3 days then okay to use bandaid the glue will fall off in 5 to 7 days limit long walking CLINICAL HISTORY: ?glass in foot 3 view left foot Comparison: None Bklu-ta-wchdmozh degenerative changes at some levels. IMPRESSION: No radiopaque foreign body. Prescriptions: No Action ezetimibe [Zetia] 10 mg tablet 10 mg PO DAILY Qty: 90 0RF aspirin 81 mg tablet,delayed release (DR/EC) 81 mg PO DAILY amlodipine 5 mg tablet 5 mg PO DAILY omega-3 fatty acids [Fish Oil Concentrate] 1,000 mg capsule 1,000 mg PO DAILY cholecalciferol (vitamin D3) 25 mcg (1,000 unit) capsule 25 mcg PO DAILY atorvastatin [Lipitor] 40 mg tablet 40 mg PO DAILY Qty: 30 11RF Print Language: Estonian
--- NOTE | 2024-10-04 07:08 | PC.NURSE ---
Patient A&O x 3. Patient presents to Ed c/o laceration to left heel. Pain rated 8/10 non radiating. Denies fever/chills, SOB. +CMS +ROM no redness/swelling. Patient broke a glass at home yesterday and accidentally stepped on a piece. Patient dressed it b ut reports it didnt stop bleeding. Wound dressed in triage. Wound not draining at this time. Tetanus not up to date. Provider in to see patient. Plan of care on going
[2024-10-04] MEDS: Diphth,Pertus(ACell),Tet Adult 0.5 ML SYRINGE IM (07:40)
[2024-10-04 07:50] VITALS: BP 150/76; PULSE 66; RESP 18; TEMP 36.8; O2SAT 95
[2024-10-04 07:59] VITALS: BP 150/76; PULSE 66; RESP 18; TEMP 36.8; O2SAT 95
== END 2024-10-04 08:02 | disposition home or self-care (01) ==
PROVIDERS: Emergency Provider Emergency Medicine; PCP Internal Medicine
DX: S91.312A Laceration without foreign body, left foot, initial encounter (principal); M79.672 Pain in left foot; W25.XXXA Contact with sharp glass, initial encounter; Y93.9 Activity, unspecified; Y92.9 Unspecified place or not applicable; Y99.8 Other external cause status; Z23 Encounter for immunization
CPT/HCPCS: 12001; 73630; 90471; 90715; 99284

== ENCOUNTER → 2024-11-08 07:39 | Outpatient (REF) | payer MEDICARE, SELFPAY ==
--- OUTSIDE RECORDS SUMMARY | 2024-08-16 03:30 | XMS_ITS ---
Author Organization Gavin Lentz MD Address [address] [place], [place] [phone] Care Team Providers Care Continuous Washer Operator Name Role Phone Gavin Lentz Primary Care Provider Results Component Value Reference Range Notes Liver Panel Reviewed date:08/16/2024 04:55:31 PM Interpretation: Performing Lab:[address] [address] Notes/Report: Bilirubin Total 0.7 0.0-1.0 mg/dL Bilirubin Direct 0.3 0.0-0.5 mg/dL Aspartate Amino Transferase 26 5-31 U/L Alanine Aminotransferase 21 0-31 U/L Total Protein 6.9 6.5-8.0 g/dL Albumin Level 4.2 3.5-5.0 g/dL Alkaline Phosphatase 67 39-117 U/L Glucose Fasting Reviewed date:08/16/2024 04:55:22 PM Interpretation: Performing Lab:[address] [address] Notes/Report: Glucose Fasting 96 60-99 mg/dL Lipid Panel with Reflex Reviewed date:08/16/2024 04:55:05 PM Interpretation: Performing Lab:[facility], [address] [place] [phone] Notes/Report: Triglycerides 77 <150 mg/dL Desirable Triglyceride: [...] A1c Reviewed date:08/16/2024 04:55:13 PM Interpretation: Performing Lab:[facility], [address] [place] [phone] Notes/Report: Hemoglobin A1c % 5.3 <6.0 % [...] average glucose, using the formula of the J8G-Xkerccd Average Glucose study (ADAG), Diabetes Care, Vol.31,#8, Nov. 2007 REASON FOR VISIT fasting lipids Encounters Encounter Location Date Provider Diagnosis Gavin Lentz MD [address] [place] [address] [address] [place], [place] [phone] 08/16/2024 Gavin Lentz Prediabetes R73.09 a nd Pure hypercholesterolemia E78.00 Assessments Encounter Date Diagnosis (ICD Code) Assessment Notes Treatment Notes Treatment Clinical Notes Section Notes 08/16/2024 Prediabetes (ICD-10 - R73.09) 08/16/2024 Pure hypercholesterolemia (ICD-10 - E78.00) Plan Of Treatment Next Appt Details Provider Name:Gavin Ortega ier, 02/21/2025 11:00:00 AM, [address] [facility], [address], [place], [place], [phone], Progress Notes * Malorie RODRIGUEZ ADOB:[birth year] (79 yo F)Acc No.[id number]:08/16/2024 Progress Note Patient: Malorie JARRELL Provider: Klever Lentz MD :1945 A ge:79 Y S ex:Female Date:08/16/2024 Address:[address] [place], [place] [phone] Subjective: * Chief Complaints: * 1 . [...] 0 08/16/2024 Generated for Juan taylor/Yeimi/eTransmitting on: 0 11/08/2024 07:41 AM EDT
--- NOTE | 2024-11-08 07:42 | CA_ITS ---
Transthoracic Echocardiogram Patient (Last, First, Middle): Malorie Duvall A Gender: Female Date of : 1945 Age: 79 Procedure Date: 11/08/2024 Procedure Type: Transthoracic Echocardiogram Location: OP Height: 162.56 cm Weight: 63.05 kg BSA: 1.68 m2 Heart Rate: bpm BP: 150 / 76 mmHg Music Composition Teacher: EMELINA/MODESTO Referring MD: Gasper Brenner MD Symptoms: I71.2 - Thoracic aortic aneurysm, without rupture Study Quality: Adequate ECG Rhythm: Sinus Conclusions: - The left ventricular systolic function is normal. The calculated ejection fraction is 65% by biplane method. - There is mild to moderate aortic valve regurgitation. - There is mild dilatation of the sinuses of Valsalva measuring 4.20 cm, mild dilatation of the ascending aorta measuring 4.50 cm, and mild dilatation of the aortic arch measuring 4.30 cm. - There is mild mitral valve regurgitation. Findings Left Ventricle Normal left ventricular cavity size. There is mildly increased left ventricular wall thickness. The left ventricular systolic function is normal. The calculated ejection fraction is 65% by biplane method. There is no evidence of regional wall motion abnormalities. Diastolic function is normal for age. Right Ventricle Normal right ventricular cavity size and systolic function. Atria Both atria are normal in size. Aortic Valve There is a normal trileaflet aortic valve. There is mild calcification of the aortic valve. There is no aortic valve stenosis. There is mild to moderate aortic valve regurgitation. Mitral Valve The mitral valve appears normal. There is mild mitral valve regurgitation. There is no mitral valve stenosis. Pulmonic Valve The pulmonic valve is likely normal. Tricuspid Valve There is mild to moderate tricuspid valve regurgitation. There is no evidence of pulmonary hypertension. Great Vessels There is mild dilatation of the sinuses of Valsalva measuring 4.20 cm, mild dilatation of the ascending aorta measuring 4.50 cm, and mild dilatation of the aortic arch measuring 4.30 cm. Small plaque is seen in the sino tubular ridge. Venous The inferior vena cava is mildly dilated and collapses greater than 50% with inspiration. Pericardium/Pleural There is no evidence of pericardial effusion. Prior Study Comparison No significant change compared to prior study dated: 12/14/2022. Measurements 2D Linear Measurements IVSd: 1.09 0.6-0.9/0.6-1.0 cm LVIDd: 4.10 3.9-5.3/4.2-5.9 cm LVIDd Index: 2.44 2.4-3.2/2.2-3.1 cm/m2 LVIDs: 3.23 2.0-3.6 cm LVPWd: 1.10 0.7-1.1 cm LA Diam: 3.50 2.7-3.8/3.0-4.0 cm LAIDs Index: 2.08 1.5-2.3 cm/m2 LV Mass: 187.13 67-162/88-224 g LV Mass Index: 111.39 43-95/49-115 g/m2 LVOT Diam: 2.30 3.0+(-)1.3 cm 2D Systolic Function EF 4C: 61.50 >55% EF 2C: 69.60 >55% EF BiP: 64.70 >55% Mitral Valve MV Pk E: 0.51 MV PK A: 0.83 MV Decel Time: 183.00 E/A: 0.60 E'Lateral: 5.22 E'Medial: 4.03 E/E' Med: 12.70 E/E' Lat: 9.80 PHT: 53.00 MVA PHT: 4.15 Decel [place]: 2.79 Aortic Valve AoV Pk Pavel: 1.37 AoV Mn Pavel: 1.10 AoV VTI: 0.35 AoV Pk Grad: 8.00 Aov Mn Grad: 5.00 HERBERT Cont.VTI: 3.62 AI Pk Pavel: 4.77 AI [place]: 1.98 LVOT LVOT Pk Pavel: 1.31 LVOT Mn Pavel: 0.96 LVOT VTI: 0.30 LVOT Pk Grad: 7.00 LVOT Mn Grad: 4.00 LVOT Diam: 2.30 LVOT Area: 4.15 Diastolic Function MV Pk E: 0.51 MV Pk A: 0.83 E/A: 0.60 E'Medial: 4.03 E/E' Med: 12.70 E' Laterial: 5.22 E/E' Lat: 9.80 Right Ventricle TAPSE (mm): 21.60 TVS' Pavel: 10.70 Tricuspid Valve TR Pk Pavel: 2.25 TR Pk Grad: 20.00 RA Press: 8.00 RVSP: 28.00 Great Vessels Aorta Sinus of Valsalva: 4.20 2.0-3.[address] Ridge: 2.93 1.7-3.4 cm Ao Asc: 4.50 2.1-3.4 cm Ao Arch: 4.30 Updated in Other Vendor System with Status of Final Macrelino Jon MD electronically signed on 11/10/2024 10:19:30 AM with status of Final
== END ==
LOC: HO.CARD 07:39
PROVIDERS: PCP Internal Medicine; Visit Provider Internal Medicine Cardiovascular Disease
DX: I71.20 Thoracic aortic aneurysm, without rupture, unspecified (principal)
CPT/HCPCS: 93306

== ENCOUNTER → 2024-11-08 07:42 | Outpatient (BNV) | payer MEDICARE, SELFPAY | PROVIDERS: PCP Internal Medicine; Visit Provider Internal Medicine | DX: I35.1 Nonrheumatic aortic (valve) insufficiency (principal); I34.0 Nonrheumatic mitral (valve) insufficiency; I71.21 Aneurysm of the ascending aorta, without rupture; I71.22 Aneurysm of the aortic arch, without rupture | CPT/HCPCS: 93306 ==

== ENCOUNTER 2024-11-14 08:25 | Outpatient (AMB) | payer MEDICARE, SELFPAY ==
--- OUTSIDE RECORDS SUMMARY | 2024-08-16 03:30 | XMS_ITS ---
Author Organization Gavin Lentz MD Address [address] [place], [place] [phone] Care Team Providers Care Main Galley Scullion Name Role Phone Gavin Lentz Primary Care Provider [phone] Results Component Value Reference Range Notes Liver Panel Reviewed date:08/16/2024 04:55:31 PM Interpretation: Performing Lab:[address] [address] Notes/Report: Bilirubin Total 0.7 0.0-1.0 mg/dL Bilirubin Direct 0.3 0.0-0.5 mg/dL Aspartate Amino Transferase 26 5-31 U/L Alanine Aminotransferase 21 0-31 U/L Total Protein 6.9 6.5-8.0 g/dL Albumin Level 4.2 3.5-5.0 g/dL Alkaline Phosphatase 67 39-117 U/L Glucose Fasting Reviewed date:08/16/2024 04:55:22 PM Interpretation: Performing Lab:[address] [address] Notes/Report: Glucose Fasting 96 60-99 mg/dL Lipid Panel with Reflex Reviewed date:08/16/2024 04:55:05 PM Interpretation: Performing Lab:[facility], [address] [place] [phone] Notes/Report: Triglycerides 77 <150 mg/dL Desirable Triglyceride: [...] A1c Reviewed date:08/16/2024 04:55:13 PM Interpretation: Performing Lab:[facility], [address] [place] [phone] Notes/Report: Hemoglobin A1c % 5.3 <6.0 % [...] average glucose, using the formula of the E6V-Etjvquo Average Glucose study (ADAG), Diabetes Care, Vol.31,#8, Nov. 2007 REASON FOR VISIT fasting lipids Encounters Encounter Location Date Provider Diagnosis Gavin Lentz MD [address] [place] [address] [address] [place], [place] [phone] 08/16/2024 Gavin Lentz Prediabetes R73.09 a nd Pure hypercholesterolemia E78.00 Assessments Encounter Date Diagnosis (ICD Code) Assessment Notes Treatment Notes Treatment Clinical Notes Section Notes 08/16/2024 Prediabetes (ICD-10 - R73.09) 08/16/2024 Pure hypercholesterolemia (ICD-10 - E78.00) Plan Of Treatment Next Appt Details Provider Name:Gavin Ortega ier, 02/21/2025 11:00:00 AM, [address] [facility], [address], [place], [place], [phone], Progress Notes * Malorie RODRIGUEZ ADOB:[birth year] (79 yo F)Acc No.[id number]:08/16/2024 Progress Note Patient: Malorie JARRELL Provider: Klever Lentz MD :1945 A ge:79 Y S ex:Female Date:08/16/2024 Address:[address] [place], [place] [phone] Subjective: * Chief Complaints: * 1 . [...] 08/16/2024 Generated for Juan taylor/Yeimi/eTransmitting on: 0 11/14/2024 08:39 AM EDT
--- NOTE | 2024-11-14 08:31 | MHC.OFFVIS ---
Vital Signs 11/14/24 08:32 Height 5 ft 4 in Weight 143 lb 4.807 oz BMI 24.6 BP 120/76 Blood Pressure Location Lt brachial Position Sitting Pulse 63 Intake Visit Reasons: 1 year fu after echo Intake Note: 1 year follow-up with ekg after echo c/o fatigue Equipment Man Required: No Allergies No Known Allergies (No Known Allergies*) Allergy (Verified 10/04/24 06:28) Medication List - Last Reconciled 11/14/24 by Gasper Brenner MD amlodipine 5 mg PO DAILY aspirin 81 mg PO DAILY atorvastatin (Lipitor) 40 mg PO DAILY cholecalciferol (vitamin D3) 25 mcg PO DAILY ezetimibe (Zetia) 10 mg PO DAILY omega-3 fatty acids (Fish Oil Concentrate) 1,000 mg PO DAILY HPI Comments Details: Malorie comes for follow-up. He is doing very well from exertion broad-spectrum ABX she says she still walks 2-3 miles at a stretch with the friends in the mall. She is able to do that without any shortness of breath or chest pain. She does complain of increased fatigue with doing her yd work. Denies any lightheadedness, syncope. Most recent echocardiogram showed moderate enlargement of ascending aorta at 4.5 cm. She is taking all her medications. No prolonged palpitations or irregular heartbeat. [facility] Medical History Hyperlipidemia HTN (hypertension) CAD (coronary artery disease) Surgical History Hx of vaginal hysterectomy Hx of colonoscopy Family History Father CVD (cardiovascular disease) Mother Cancer CVD (cardiovascular disease) Social History Patient Tobacco Use Status: Never used Tobacco Review of Systems Const Denies chills, Denies fatigue, Denies fever(s), Denies frequent falls, Denies weakness, Denies weight gain and Denies weight loss ENT Denies dizziness Card Denies chest pain, Denies leg edema, Denies lightheadedness, Denies palpitations, Denies dyspnea, Denies dyspnea on exertion, Denies orthopnea and Denies other (loss of consciousness) Resp Denies cough, Denies dyspnea and Denies dyspnea on exertion GI Denies hematochezia and Denies change in stool character Musc Denies abnormal gait, Denies muscle weakness, Denies numbness, Denies radiating pain into limb and Denies tingling Neuro Denies abnormal gait, Denies dizziness, Denies frequent falls, Denies numbness, Denies tingling and Denies weakness Endo Denies fatigue and Denies palpitations Physical Exam Vital Signs: Last Vital Signs Pulse 63 11/14/24 08:32 BP 120/76 11/14/24 08:32 BMI result Body Mass Index 24.6 Const General: cooperative, comfortable, no acute distress, alert, awake and well groomed Nutritional Appearance: average body habitus Orientation/consciousness: patient oriented x3 Limitations: no limitations Neck Neck: Yes trachea midline, Yes supple and Yes no JVD Resp Effort & Inspection: normal respiratory effort Auscultation: clear to auscultation bilaterally Cardio Jugular venous distension: no JVD Palpation: normal PMI Rate: regular rate Rhythm: regular rhythm Heart sounds: S1 normal heart sound present, S2 normal heart sound present, no click, no gallops, Murmur heart sound present systolic early, decrescendo and crescendo and no rubs GI Auscultation: normal bowel sounds Skin General skin exam: no rashes or lesions noted Neuro General: patient oriented x3 and no focal motor deficits Extrem General: Yes no clubbing, cyanosis or edema Psych Appearance: grossly normal Office Procedures EKG Details: EKG shows normal sinus rhythm with poor R-wave progression suggestive of anterior infarct but most likely lead placement. [id number], Complete Assessment & Plan Assessment & Plan (1) Ascending aortic aneurysm: Code(s): I71.2 - Thoracic aortic aneurysm, without rupture Category: Medical Plan: Ascending aortic aneurysm at 4.5 cm. Still does not require any interventional therapy. Continue aggressive medical therapy. Continue aggressive blood pressure control. Continue low-dose aspirin therapy. Advised to avoid sudden strenuous isometric exercise. Will continue monitor by echo on a yearly basis. Symptoms of acute aortic syndrome were discussed. (2) CAD (coronary artery disease): Comment: Proximal LAD 40%, D1 ostial 65% by cardiac catheterization November 2018 Code(s): I25.10 - Atherosclerotic heart disease of [place] coronary artery without angina pectoris Category: Medical Plan: Nonobstructive coronary artery disease with moderate disease without any symptoms of angina at good functional status overall. Continue low-dose aspirin therapy for life. Continue high-intensity statin therapy with ezetimibe with target goal LDL ideally less than 70 mg/dL. Continue aggressive blood pressure control which is currently well optimized. Encouraged to maintain a log of blood pressure. Will follow up in the clinic in 1 year's time, sooner p.r.n.. Thank you for allowing me to partake in her care Orders: Orders CA echo transthoracic complete 1 Year I71.2 - Thoracic aortic aneurysm, without rupture Coding Level of Care Code Est Pt Level 4 (75392) Complex EM visit Add On G2211 Diagnoses Ascending aortic aneurysm I71.2 CAD (coronary artery disease) I25.10 CPT Codes EKG - CPT: 11260-Kyehzuyyqhswbsiyz, Complete ([id number])
[2024-11-14 08:32] VITALS: BP 120/76; PULSE 63; BMI 24.6
== END 2024-11-14 08:58 | disposition home or self-care (01) ==
LOC: HO.HCS 08:26
PROVIDERS: PCP Internal Medicine; Visit Provider Internal Medicine Cardiovascular Disease
DX: I71.20 Thoracic aortic aneurysm, without rupture, unspecified (principal); I25.10 Atherosclerotic heart disease of native coronary artery without angina pectoris
CPT/HCPCS: 93010; 99214; G2211

== ENCOUNTER → 2024-11-14 08:25 | Outpatient (BNVA) | payer MEDICARE, SELFPAY | PROVIDERS: PCP Internal Medicine; Visit Provider Internal Medicine Cardiovascular Disease | DX: I71.21 Aneurysm of the ascending aorta, without rupture (principal); I25.10 Atherosclerotic heart disease of native coronary artery without angina pectoris; R94.31 Abnormal electrocardiogram [ECG] [EKG] | CPT/HCPCS: 93005; 99212 ==

== ENCOUNTER 2024-11-21 08:24 | Outpatient (REF) | payer MEDICARE, SELFPAY ==
--- OUTSIDE RECORDS SUMMARY | 2024-08-16 03:30 | XMS_ITS ---
Author Organization Gavin Lentz MD Address [address] [place], [place] [phone] Care Team Providers Care Dater Assembler Name Role Phone Gavin Lentz Primary Care Provider Results Component Value Reference Range Notes Liver Panel Reviewed date:08/16/2024 04:55:31 PM Interpretation: Performing Lab:[address] [phone] Notes/Report: Bilirubin Total 0.7 0.0-1.0 mg/dL Bilirubin Direct 0.3 0.0-0.5 mg/dL Aspartate Amino Transferase 26 5-31 U/L Alanine Aminotransferase 21 0-31 U/L Total Protein 6.9 6.5-8.0 g/dL Albumin Level 4.2 3.5-5.0 g/dL Alkaline Phosphatase 67 39-117 U/L Glucose Fasting Reviewed date:08/16/2024 04:55:22 PM Interpretation: Performing Lab:[address] [phone] Notes/Report: Glucose Fasting 96 60-99 mg/dL Lipid Panel with Reflex Reviewed date:08/16/2024 04:55:05 PM Interpretation: Performing Lab:[facility], [address] [place] [phone] Notes/Report: Triglycerides 77 <150 mg/dL Desirable Triglyceride: less than 150 mg/dL Borderline High Triglyceride 150-199 mg/dL High Triglyceride: 200-499 mg/dL Very High Triglyceride: greater than or equal to 5OO mg/dL Cholesterol 159 <200 mg/dL Desirable Cholesterol: less than 200 mg/dL Borderline High Cholesterol: 200-239 mg/dL High Cholesterol: greater than 239 mg/dL LDL Cholesterol Calculated 92 <100 mg/dL Desirable LDL: less than 100 mg/dL Near Optimal/Above Optimal LDL: 110-129 mg/dL Borderline High LDL: 130-159 mg/dL High LDL: 160-189 mg/dL Very High LDL: greater than or equal to 190 mg/dL HDL Cholesterol 52 >40 mg/dL Desirable HDL: greater than 40 mg/dL Note: This HDL assay may give artificially low results in patients with liver disease. Hemoglobin A1c Reviewed date:08/16/2024 04:55:13 PM Interpretation: Performing Lab:[facility], [address] [place] [phone] Notes/Report: Hemoglobin A1c % 5.3 <6.0 % Hemoglobin A1C Reference Range Adults: 4.8 - 6.0 % Non diabetic: < 6.0 % Goal: < 7.0 % Additional Action Suggested: > 8.0 % Note: Hemoglobin A1c results are invalid for patients with abnormal amounts of HbF. Blood transfusions may impact the HbA1c concentration in the patient sample. Estimated Average Glucose 105 eAG = Estimated average glucose which is %A1C expressed as average glucose, using the formula of the D4F-Osnwkmt Average Glucose study (ADAG), Diabetes Care, Vol.31,#8, Nov. 2007 REASON FOR VISIT fasting lipids Encounters Encounter Location Date Provider Diagnosis Gavin Lentz MD [address] [place] [address] [address] [place], [place] [phone] 08/16/2024 Gavin Lentz Prediabetes R73.09 a nd Pure hypercholesterolemia E78.00 Assessments Encounter Date Diagnosis (ICD Code) Assessment Notes Treatment Notes Treatment Clinical Notes Section Notes 08/16/2024 Prediabetes (ICD-10 - R73.09) 08/16/2024 Pure hypercholesterolemia (ICD-10 - E78.00) Plan Of Treatment Next Appt Details Provider Name:Gavin Ortega ier, 02/21/2025 11:00:00 AM, [address] [facility], [address], [place], [place], [phone], Progress Notes * Malorie RODRIGUEZ ADOB:[birth year] (79 yo F)Acc No.[id number]:08/16/2024 Progress Note Patient: Malorie JARRELL Provider: Klever Lentz MD :1945 A ge:79 Y S ex:Female Date:08/16/2024 Address:[address] [place], [place] [phone] Subjective: * Chief Complaints: * 1 . Fasting lipids. * Medical History: Objective: * Vitals: Assessment: * Assessment: 1. P rediabetes - R73.09 (Primary) 2 . P ure hypercholesterolemia - E78.00? Plan: * Treatment: 2. P ure hypercholesterolemia L AB: Liver Panel (Collection Date & Time - 08/16/2024 07:30 AM) L AB: Glucose Fasting (Collection Date & Time - 08/16/2024 07:30 AM) L AB: Lipid Panel with Reflex (Collection Date & Time - 08/16/2024 07:30 AM) L AB: Hemoglobin A1c (Collection Date & Time - 08/16/2024 07:30 AM) * Procedure Codes: 3 6415 VENIPUNCT, ROUTINE* * * The named appointment provid er may or may not be the originator of this progress note, and it is not deemed complete until electronically signed by the appointment provider. Sign off status: Pending * Provider: Klever Lentz MD Date: 0 08/16/2024 Generated for Juan taylor/Yeimi/eTransmitting on: 11/21/2024 08:34 AM EDT
== END 2024-11-21 08:25 | disposition home or self-care (01) ==
LOC: HO.MAMMO 08:24
PROVIDERS: PCP Internal Medicine; Visit Provider Internal Medicine
DX: Z12.31 Encounter for screening mammogram for malignant neoplasm of breast (principal)
CPT/HCPCS: 77063; 77067

== ENCOUNTER → 2024-11-21 08:45 | Outpatient (BNV) | payer MEDICARE, SELFPAY | PROVIDERS: PCP Internal Medicine; Visit Provider Internal Medicine | DX: Z12.31 Encounter for screening mammogram for malignant neoplasm of breast (principal) | CPT/HCPCS: 77063; 77067 ==

== ENCOUNTER 2025-02-11 10:28 | Outpatient (REF) | payer MEDICARE, SELFPAY ==
--- OUTSIDE RECORDS SUMMARY | 2023-08-18 06:00 | XMS_ITS ---
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 Cytogenetic Laboratory Name Role Phone Gavin Lentz Primary Care Provider [phone] Allergies No Known Allergies REASON FOR VISIT 6 month, No Covid symptoms Medications Medication SIG (Take, Route, Frequency, Duration) Notes Start Date End Date Status Ibuprofen 800 MG 1 tablet Orally Thre e times a day for 30 day(s) 08/23/2013 Not-Taking Aspirin Low Dose 81 MG TAKE 1 TABLET BY MOUTH EVERY DAY Orally Once a day for 90 days Active Estrace 0.1 MG/GM as directed Vaginal Once a day for 30 days 02/13/2021 Not-Ella moody Vitamin D 2000 UNIT 2 tab Orally Once a day Active Sulfamethoxazole-Trimetho prim 800-160 MG 1 tablet Orally Twice a day for 7 days 11/12/2021 Not-Taking Atorvastatin Calcium 20 MG TAKE 1 TABLET BY MOUTH EVERY DAY FOR 90 DAYS Orally Once a day Active amLODIPine Besylate 5 MG TAKE 1 TABLET B Y MOUTH EVERY DAY FOR 90 DAYS Orally Once a day Active valACYclovir HCl 1 GM 2 tablets Orally e very 12 hrs for 5 days Not-Taking Eliquis 5 MG 1 tablet Orally twic e a day for 90 days 01/12/2019 Not-Taking Nitrostat 0.4 MG as directed Sublingu al one tab for chest pain. repeat every 5 min times 3 for 30 days 01/12/2019 Not-Taking Vital Signs Blood pressure systolic 162 mm Hg 08/18/19 Blood pressure diastolic 80 mm Hg 024 Height 64 in 08/18/2023 Weight 147 lbs 08/18/2023 BMI 25.23 kg/m2 08/18/2023 weight is up 4 pounds since 02-15-23 Encounters Encounter Location Date Provider Diagnosis Gavin Lentz MD [address] [place] [address] Drive [address] [place] [phone] 08/18/2023 Gavin Lentz Essential hypertensi on I10 ; Prediabetes R73.09 and Pure hypercholesterolemia E78.00 Assessments Encounter Date Diagnosis (ICD Code) Assessment Notes Treatment Notes Treatment Clinical Notes Section Notes 08/18/2023 Essential hypertensi on (ICD-10 - I10) doing well on meds, will continue current regiment 08/18/2023 Prediabetes (ICD-10 - R73.09) doing well, no need for medication at this time 08/18/2023 Pure hypercholesterolemia (ICD-10 - E78.00) doing well on meds, will continue current regiment Plan Of Treatment Medication Medication Name Sig Start Date Stop Date Notes Atorvastatin Calcium 20 MG TAKE 1 TABLET BY MOUTH EVERY DAY FOR 90 DAYS Orally Once a day amLODIPine Besylate 5 MG TAKE 1 TABLET B Y MOUTH EVERY DAY FOR 90 DAYS Orally Once a day Treatment Notes Assessment Notes Essential hypertension doing well on med s, will continue current regiment Prediabetes doing well, no need for medication at this time Pure hypercholesterolemia doing well on meds, will continue current regiment Next Appt Details Follow Up: 6 Months, Reason: Provider Name:Gavin Ortega ier, 02/21/2025 11:00:00 AM, [address], [address], [place], [place], [phone], Progress Notes * Malorie RODRIGUEZ ADOB:[birth year] (78 yo F)Acc No.[id number]:08/18/2023 Progress Notes Patient: Kelly nuñezMalorie Provider: Klever Lentz MD :1945 A ge:78 Y S ex:Female Date:08/18/2023 Address:[facility] Subjective: * Chief Complaints: * 6 monthNo Covid symptoms * HPI: S ymptom(s): patient is a 78 yo female here for 6 month follow up. * ROS: G eneral/Constitutional: Denies C hills. D enies F atigue. D enies F ever. D enies H eadache. E NT: Patient denies d ecreased sense of smell , any loss of taste , sore throat. D enies S ore throat. R espiratory: Denies C ough. D enies S hortness of breath at rest. D enies S hortness of breath with exertion. G astrointestinal: Denies D iarrhea. D enies N ausea. M usculoskeletal: Patient denies m uscle aches. P eripheral Vascular: Patient denies r ed and blue toes. * Medical History: * Surgical History: * Hospitalization/Major Diagno stic Procedure: * Medications: T akingAspirin Low Dose 81 MG Tablet Delayed Release TAKE 1 TABLET BY MOUTH EVERY DAY Orally Once a dayVitamin D 2000 UNIT Tablet 2 tab Orally Once a dayAtorvastatin Calcium 20 MG Tablet TAKE 1 TABLET BY MOUTH EVERY DAY FOR 90 DAYS Orally Once a dayamLODIPine Besylate 5 MG Tablet TAKE 1 TABLET BY MOUTH EVERY DAY FOR 90 DAYS Orally Once a dayTaking Aspirin Low Dose 81 MG Tablet Delayed Release TAKE 1 TABLET BY MOUTH EVERY DAY Orally Once a dayTaking Vitamin D 2000 UNIT Tablet 2 tab Orally Once a dayTaking Atorvastatin Calcium 20 MG Tablet TAKE 1 TABLET BY MOUTH EVERY DAY FOR 90 DAYS Orally Once a dayTaking amLODIPine Besylate 5 MG Tablet TAKE 1 TABLET BY MOUTH EVERY DAY FOR 90 DAYS Orally Once a dayNot-Taking/PRNSulfamethoxazole-Trimethoprim 800-160 MG Tablet 1 tablet Orally Twice a dayEstrace 0.1 MG/GM Cream as directed Vaginal Once a dayvalACYclovir HCl 1 GM Tablet 2 tablets Orally every 12 hrsEliquis 5 MG Tablet 1 tablet Orally twice a dayNitrostat 0.4 MG Tablet Sublingual as directed Sublingual one tab for chest pain. repeat every 5 min times 3Ibuprofen 800 MG Tablet 1 tablet Orally Three times a dayMedication List reviewed and reconciled with the patientNot-Taking/PRN Sulfamethoxazole-Trimethoprim 800-160 MG Tablet 1 tablet Orally Twice a dayNot-Taking/PRN Estrace 0.1 MG/GM Cream as directed Vaginal Once a dayNot-Taking/PRN valACYclovir HCl 1 GM Tablet 2 tablets Orally every 12 hrsNot-Taking/PRN Eliquis 5 MG Tablet 1 tablet Orally twice a dayNot-Taking/PRN Nitrostat 0.4 MG Tablet Sublingual as directed Sublingual one tab for chest pain. repeat every 5 min times 3Not-Taking/PRN Ibuprofen 800 MG Tablet 1 tablet Orally Three times a dayMedication List reviewed and reconciled with the patient * Allergies: N .K.D.A.yes[Allergies Verified] Objective: * Vitals: H t: 64, Wt:147, BMI:25.23, BP:162/80, Repeat BP:110/70 weight is up 4 pounds since 02-15-23. * P ast Orders: L ab:Hemoglobin A1c (Order Date - 08/11/2023) (Collection Date - 08/11/2023) Value Reference Range Hemoglobin A1c % 5.5 <6.0 - % Estimated Average Glucose 111 - mg/dL L ab:Liver Panel (Order Date 08/11/2023) (Collection Date 08/11/2023) Value Reference Range Bilirubin Total 0.6 0.0-1.0 - mg/dL Bilirubin Direct 0.2 0.0-0.5 - mg/dL Aspartate Amino Transferase 17 5-31 - U/L Alanine Aminotransferase 16 0-31 - U/L Total Protein 6.6 6.5-8.0 - g/dL Albumin Level 4.1 3.5-5.0 - g/dL Alkaline Phosphatase 64 39-117 - U/L L ab:Glucose Fasting (Order Date - 08/11/2023) (Collection Date - 08/11/2023) Value Reference Range Glucose Fasting 97 60-99 - mg/dL L ab:Lipid Panel with Reflex (Order Date 08/11/2023) (Collection Date - 08/11/2023) Value Reference Range Triglycerides 74 <150 - mg/dL Cholesterol 164 <200 - mg/dL LDL Cholesterol Calculated 100 H <100 - mg/dL HDL Cholesterol 50 >40 - mg/dL * Examination: G eneral Examination: GENERAL APPEARANCE: alert, well hydrated, in no distress , female. HEAD: normocephalic. SKIN: good turgor. HEART: regular rate and rhythm, no murmurs, rubs, gallops. LUNGS: no wheezes, rales, rhonchi, good air movement, clear to auscultation bilaterally. Assessment: * Assessment: 1. P rediabetes - R73.09 (Primary) 2 . E ssential hypertension - I10 3 . P ure hypercholesterolemia - E78.00 Plan: * Treatment: 2. E ssential hypertension Continue amLODIPine Besylate Tablet, 5 MG, TAKE 1 TABLET BY MOUTH EVERY DAY FOR 90 DAYS, Orally, Once a day. Notes: doing well on meds, will continue current regiment. 3. P ure hypercholesterolemia Continue Atorvastatin Calcium Tablet, 20 MG, TAKE 1 TABLET BY MOUTH EVERY DAY FOR 90 DAYS, Orally, Once a day. Notes: doing well on meds, will continue current regiment. * Procedure Codes: * Follow Up: 6 Months * * Sign off status: Completed true * Provider: Klever Lentz MD Date: 0 08/18/2023 Generated for Juan taylor/Yeimi/David on: 12:18 PM EDT History and Physical Notes * HPI (History of Present Illness) Category Sub-Category Detail Notes Category Not es Symptom(s) patient is a 78 yo female here for 6 month follow up Examination Category Sub-Category Detail Notes Category Not es General Examination GENERAL APPEARANCE: alert, w ell hydrated, in no distress , female HEAD: normocephalic HEART: regular rate and rhy thm, no murmurs, rubs, gallops LUNGS: no wheezes, rales, r honchi, good air movement, clear to auscultation bilaterally SKIN: good turgor
--- OUTSIDE RECORDS SUMMARY | 2024-01-02 04:37 | XMS_ITS ---
Author Organization Gavin Lentz MD Address [address] [place] [phone] Care Team Providers Care Transcript Evaluator Name Role Phone Gavin Lentz Primary Care Provider [phone] REASON FOR VISIT refill Medications Medication SIG (Take, Route, Frequency, Duration) Notes Start Date End Date Status Atorvastatin Calcium 20 MG TAKE 1 TAB EV TAYLA DAY FOR 90 DAYS ORALLY ONCE A DAY Orally Once a day for 90 days Active Encounters Encounter Location Date Provider Diagnosis Gavin Lentz MD [address] [facility] [address] [place] [phone] 01/02/2024 Gavin Lentz Plan Of Treatment Medication Medication Name Sig Start Date Stop Date Notes Atorvastatin Calcium 20 MG TAKE 1 TAB EV TAYLA DAY FOR 90 DAYS ORALLY ONCE A DAY Orally Once a day for 90 days Next Appt Details Provider Name:Gavin dailey, 02/21/2025 11:00:00 AM, [address] [facility], [address] [facility], [place], [place], [phone], Progress Notes * Malorie RODRIGUEZ ADOB:[birth year] (78 yo F)Acc No.[id number]:01/02/2024 Patient: Malorie Jones :1945 A ge:78 Y S ex:Female Address:[address] [place] [address] [place] [address] * Refills Refill Atorvastatin Calcium Tablet, 20 MG, Orally, 90 Tablet, TAKE 1 TAB EVERY DAY FOR 90 DAYS ORALLY ONCE A DAY, Once a day, 90 days, Refills=3 * true * Date: Generated for Juan taylor/Yeimi/David on: 12:18 PM EDT
--- OUTSIDE RECORDS SUMMARY | 2024-02-14 03:00 | XMS_ITS ---
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 Name Role Phone Gavin Lentz Primary Care Provider Results Component Value Reference Range Notes Complete Blood Count Auto Di ff Reviewed date:02/14/2024 08:45:06 PM Interpretation: Performing Lab:[facility], [address] [place] [phone] Notes/Report: White Blood Count 6.7 4.8-10.8 X10*3/uL Red Blood Count 4.69 4.20-5.50 X10*6/uL Hemoglobin 14.0 12.0-16.0 g/dl Hematocrit 42.7 37.0-47.0 % Mean Corpuscular Volume 91.0 80.0-98.0 fL Mean Corpuscular Hemoglobin 29.9 27.0-33.0 pg Mean Corpuscular HGB Conc 32.8 31.0-35.0 g/dl Red Cell Distribution Width 13.0 11.0-16.0 % Platelet Count 210 160-400 X10*3/uL Mean Platelet Volume 12.9 9.4-12.3 fL Neutrophils Percent Auto 63.5 45-73 % Imm Gran Pct Auto 0.4 0.0-0.4 % Lymphocytes Percent Auto 28.8 20-40 % Monocytes Percent Auto 6.0 2-11 % Eosinophils Percent Auto 0.7 0-4 % Basophils Percent Auto 0.6 0-2 % NRBC Pct Auto 0.0 0.0-0.2 /100WBC Neutrophils Absolute Auto 4.3 2.0-8.3 x10*3/u L Imm Gran Abs Auto 0.03 0.00-0.03 X10*3/uL Lymphocytes Absolute Auto 1.9 1.2-4.9 X10*3/u L Monocytes Absolute Auto 0.4 0.1-1.2 X10*3/uL Eosinophils Absolute Auto 0.1 0.0-0.4 X10*3/u L Basophils Absolute Auto 0.0 0.0-0.2 X10*3/uL NRBC Abs Auto 0.000 0.0-0.012 X10*3/uL Comprehensive [place]. Panel Fa st Reviewed date:02/15/2024 05:07:53 PM Interpretation: Performing Lab:[facility], [address] [place] [phone] Notes/Report: Sodium 141 135-145 mmol/L Potassium 4.4 3.3-5.1 mmol/L Chloride 107 96-108 mmol/L Carbon Dioxide 27 22-29 mmol/L Anion Gap 11 12-20 Blood Urea Nitrogen 18 9-16 mg/dL Creatinine 0.72 0.5-1.4 mg/dL Estimated Glomerular Filt Rate > 60 NOTE: For -[place] individuals, multiply the result by 1.210. Chronic Kidney Disease: Estimated GFR < 60 mL/min/1.73m2 Severe Kidney Disease: Estimated GFR < 15 mL/min/1.73m2 Glucose Fasting 105 60-99 mg/dL A fasting glucose from 100-125 mg/dl is considered impaired (pre-diabetes). Calcium 9.5 8.4-10.2 mg/dL Bilirubin Total 0.7 0.0-1.0 mg/dL Aspartate Amino Transferase 23 5-31 U/L Alanine Aminotransferase 21 0-31 U/L Total Protein 6.9 6.5-8.0 g/dL Albumin Level 4.4 3.5-5.0 g/dL Alkaline Phosphatase 67 39-117 U/L Lipid Panel Reviewed date:02/14/2024 08:36:01 PM Interpretation: Performing Lab:[facility], [address] [place] [phone] Notes/Report: Triglycerides 73 <150 mg/dL Desirable Triglyceride: less than 150 mg/dL Borderline High Triglyceride 150-199 mg/dL High Triglyceride: 200-499 mg/dL Very High Triglyceride: greater than or equal to 5OO mg/dL Cholesterol 143 <200 mg/dL Desirable Cholesterol: less than 200 mg/dL Borderline High Cholesterol: 200-239 mg/dL High Cholesterol: greater than 239 mg/dL LDL Cholesterol Calculated 75 <100 mg/dL Desirable LDL: less than 100 mg/dL Near Optimal/Above Optimal LDL: 110-129 mg/dL Borderline High LDL: 130-159 mg/dL High LDL: 160-189 mg/dL Very High LDL: greater than or equal to 190 mg/dL HDL Cholesterol 54 >40 mg/dL Desirable HDL: greater than 40 mg/dL Note: This HDL assay may give artificially low results in patients with liver disease. Vitamin D 25-OH Total Reviewed date:02/14/2024 08:37:09 PM Interpretation: Performing Lab:[facility], [address] [place] [phone] Notes/Report: Vitamin D 25-OH Total 43.4 >30 ng/mL Health Based Reference Values* < 20 ng/mL Deficient 20-30 ng/mL Insufficient > 30 ng/mL Sufficient *Mateo DOWNING. N Engl J Med. 2007;357:266-280 Care must be taken in interpreting Vitamin D results from different laboratories and methodologies. Published data demonstrated that results from patients undergoing hemodialysis may show a negative bias when tested with various automated 25-OH vitamin D assays when compared to LC-MS/MS. When testing samples from patients whose predominant form of Vitamin D is Vitamin D2, such as patients receiving Vitamin D2 supplementation, results that are subtherapeutic should be confirmed with another method such as LC-MS/MS. Microalbumin, Random Reviewed date:02/14/2024 08:35:09 PM Interpretation: Performing Lab:[facility], [address] [place] [phone] Notes/Report: Creatinine Urine 52.48 Microalbumin Urine < 5.0 Microalbum/Creatinine Ratio Ur TNP <30 ug/mg cr Unable to calculate albumin/creatinine ratio due to low microalbumin or creatinine result. Hemoglobin A1c Reviewed date:02/14/2024 08:35:29 PM Interpretation: Performing Lab:[facility], [address] [place] [phone] Notes/Report: Hemoglobin A1c % 5.5 <6.0 % Hemoglobin A1C Reference Range Adults: 4.8 - 6.0 % Non diabetic: < 6.0 % Goal: < 7.0 % Additional Action Suggested: > 8.0 % Note: Hemoglobin A1c results are invalid for patients with abnormal amounts of HbF. Blood transfusions may impact the HbA1c concentration in the patient sample. Estimated Average Glucose 111 eAG = Estimated average glucose which is %A1C expressed as average glucose, using the formula of the [id number] Average Glucose study (ADAG), Diabetes Care, Vol.31,#8, Nov. 2007 UA ClnCatch+Micro w/rflx Cul t Reviewed date:02/14/2024 08:44:46 PM Interpretation: Performing Lab:[facility], [address] [place] [phone] Notes/Report: [id number] Urine, Clean Catch Color Urine Yellow Appearance Urine Turbid PH 8.0 5.0-9.0 Glucose Urine UA Negative Negative mg/dL Urine Blood Negative Negative Specific [place] - Urine 1.015 1.005-1.025 Urine Protein Negative Neg-Trace mg/dL Urine Ketones Negative Negative mg/dL Nitrite Urine Negative Negative Leukocyte Esterase Urine Negative Negative RBC Urine 0-2 0-2 /HPF WBC Urine 0-5 0-5 /HPF Squamous Epithelial Cell Urine 0-2 0-2 /HPF Bacteria Urine None Seen None Seen Hyaline Casts Urine 0-2 0-2 /LPF REASON FOR VISIT yearly fasting labs Immunizations Vaccine Route Administration Date Status Comme nts Influenza High Dose Unknown 02/14/2024 Refused Encounters Encounter Location Date Provider Diagnosis Gavin Lentz MD [address] [place], [place] [id number] 02/14/2024 Gavin Lentz Prediabetes R73.09 ; Pure hypercholesterolemia E78.00 ; Vitamin D deficiency E55.9 and Essential hypertension I10 Assessments Encounter Date Diagnosis (ICD Code) Assessment Notes Treatment Notes Treatment Clinical Notes Section Notes 02/14/2024 Prediabetes (ICD-10 - R73.09) 02/14/2024 Pure hypercholesterolemia (ICD-10 - E78.00) 02/14/2024 Vitamin D deficiency (ICD-10 - E55.9) 02/14/2024 Essential hypertensi on (ICD-10 - I10) Plan Of Treatment Next Appt Details Provider Name:Gavin Ortega ier, 02/21/2025 11:00:00 AM, [address] [facility], [address], [place], [place], [id number], Progress Notes * Malorie RODRIGUEZ ADOB:[birth year] (78 yo F)Acc No.[id number]:02/14/2024 Progress Note Patient: Malorie Jones Provider: Klever Lentz MD :1945 A ge:78 Y S ex:Female Date:02/14/2024 Address:[address] [place] [address] Subjective: * Chief Complaints: * Y early fasting labs * Medical History: * Surgical History: * Hospitalization/Major Diagno stic Procedure: * Medications: Objective: Assessment: * Assessment: 1. P rediabetes - R73.09 (Primary) 2 . P ure hypercholesterolemia - E78.00 3 . V itamin D deficiency - E55.9 4 . E ssential hypertension - I10 Plan: * Treatment: 2. P ure hypercholesterolemia L AB: Complete Blood Count Auto Diff L AB: Comprehensive [place]. Panel Fast L AB: Lipid Panel L AB: Vitamin D 25-OH Total L AB: Microalbumin, Random L AB: Hemoglobin A1c L AB: UA ClnCatch+Micro w/rflx Cult 3. V itamin D deficiency L AB: Complete Blood Count Auto Diff L AB: Comprehensive [place]. Panel Fast L AB: Lipid Panel L AB: Vitamin D 25-OH Total L AB: Microalbumin, Random L AB: Hemoglobin A1c L AB: UA ClnCatch+Micro w/rflx Cult 4. E ssential hypertension L AB: Complete Blood Count Auto Diff L AB: Comprehensive [place]. Panel Fast L AB: Lipid Panel L AB: Vitamin D 25-OH Total L AB: Microalbumin, Random L AB: Hemoglobin A1c L AB: UA ClnCatch+Micro w/rflx Cult * Immunizations: Influenza High Dose (Not administered - Refused: Patient decision) * Procedure Codes: 3 6415 VENIPUNCT, ROUTINE* * * Sign off status: Completed true * Provider: Klever Lentz MD Date: Generated for Juan taylor/Yeimi/Douglasitting on: 12:20 PM EDT
--- OUTSIDE RECORDS SUMMARY | 2024-02-21 06:30 | XMS_ITS ---
Author Organization Gavin Lentz MD Address [address] [place], [place] [id number] Care Team Providers Care Operations Research Manager Name Role Phone Gavin Lentz Primary Care Provider Allergies No Known Allergies REASON FOR VISIT review labs Medications Medication SIG (Take, Route, Frequency, Duration) Notes Start Date End Date Status amLODIPine Besylate 5 MG TAKE 1 TABLET B Y MOUTH EVERY DAY FOR 90 DAYS Orally Once a day Active Zetia 10 MG 1 tablet Orally Once a day Active Ibuprofen 800 MG 1 tablet Orally Thre e times a day for 30 day(s) 08/23/2013 Not-Taking Vitamin D 2000 UNIT 2 tab Orally Once a day Active Atorvastatin Calcium 20 MG TAKE 1 TAB EVERY DAY FOR 90 DAYS ORALLY ONCE A DAY Orally Once a day Active Nitrostat 0.4 MG as directed Sublingu al one tab for chest pain. repeat every 5 min times 3 for 30 days 01/12/2019 Not-Taking Sulfamethoxazole-Trimetho prim 800-160 MG 1 tablet Orally Twice a day for 7 days 11/12/2021 Not-Taking Estrace 0.1 MG/GM as directed Vaginal Once a day for 30 days 02/13/2021 Not-Takin g valACYclovir HCl 1 GM 2 tablets Orally e very 12 hrs for 5 days Not-Taking Eliquis 5 MG 1 tablet Orally twic e a day for 90 days 01/12/2019 Not-Taking Aspirin Low Dose 81 MG TAKE 1 TABLET BY MOUTH EVERY DAY Orally Once a day for 90 days Active Social History Tobacco Use: Social History Observation Description Date Details (start date - stop date) Former Smoker NA - NA Tobacco Use/Smoking Question Answer Notes Patient is a former smoker How long has it been since y ou last smoked? > 10 years Additional Findings: Tobacco Non-User Fo rmer smoker, currently using no form of tobacco Alcohol Screen Question Answer Notes Did you have a drink contain ing alcohol in the past year? Yes How often did you have a dri nk containing alcohol in the past year? 2 to 3 times a week (3 points) How many drinks did you have on a typical day when you were drinking in the past year? 1 or 2 drinks (0 point) How often did you have 6 or more drinks on one occasion in the past year? Never (0 point) Points 3 Interpretation Positive Vital Signs Blood pressure systolic 138 mm Hg 02/21/20 24 Blood pressure diastolic 80 mm Hg 024 Height 64 in 02/21/2024 Weight 145 lbs 02/21/2024 BMI 24.89 kg/m2 02/21/2024 weight is down 2 pounds [facility] 08-18-23 Encounters Encounter Location Date Provider Diagnosis Gavin Lentz MD [address] [place] [address] [place] [phone] 02/21/2024 Gavin Lentz Prediabetes R73.09 ; Pure hypercholesterolemia E78.00 ; Essential hypertension I10 ; Coronary artery disease involving [place] coronary artery of [place] heart without angina pectoris I25.10 ; Vitamin D deficiency E55.9 and Depression screening Z13.31 Assessments Encounter Date Diagnosis (ICD Code) Assessment Notes Treatment Notes Treatment Clinical Notes Section Notes 02/21/2024 Prediabetes (ICD-10 - R73.09) doing well with good a1c, no need for medication at this time 02/21/2024 Pure hypercholesterolemia (ICD-10 - E78.00) has reached goal on the zetia, will continue current regiment 02/21/2024 Essential hypertensi on (ICD-10 - I10) well controlled will continue current regiment 02/21/2024 Coronary artery dise ase involving [place] coronary artery of [place] heart without angina pectoris (ICD-10 - I25.10) not having any chest pains. is on statins 02/21/2024 Vitamin D deficiency (ICD-10 - E55.9) stable, will control current regiment 02/21/2024 Depression screening (ICD-10 - Z13.31) negative screen Plan Of Treatment Medication Medication Name Sig Start Date Stop Date Notes amLODIPine Besylate 5 MG TAKE 1 TABLET B Y MOUTH EVERY DAY FOR 90 DAYS Orally Once a day Zetia 10 MG 1 tablet Orally Once a day Vitamin D 2000 UNIT 2 tab Orally Once a day Atorvastatin Calcium 20 MG TAKE 1 TAB EV TAYLA DAY FOR 90 DAYS ORALLY ONCE A DAY Orally Once a day Treatment Notes Assessment Notes Prediabetes doing well with good a1c, no need for medication at this time Pure hypercholesterolemia has reached go al on the zetia, will continue current regiment Essential hypertension well controlled w ill continue current regiment Coronary artery disease invo lving [place] coronary artery of [place] heart without angina pectoris not having any chest pains. is on statins Vitamin D deficiency stable, will contro l current regiment Depression screening negative screen Next Appt Details Follow Up: 6 Months, Reason: Provider Name:Gavin Ortega ier, 02/21/2025 11:00:00 AM, [address] [place] [address], [address], [place], [place], [phone], Progress Notes * MICHAELMalorie ADOB:[birth year] (78 yo F)Acc No.[id number]:02/21/2024 Patient: Malorie Jones Provider: Klever Lentz MD :1945 A ge:78 Y S ex:Female Date:02/21/2024 Address:[address] [place], [place] [id number] Subjective: * Chief Complaints: * R eview labs * HPI: D epression Screening: PHQ-9 L ittle interest or pleasure in doing things N ot at all, F eeling down, depressed, or hopeless N ot at all, T rouble falling or staying asleep, or sleeping too much N ot at all, F eeling tired or having little energy N ot at all, P oor appetite or overeating N ot at all, F eeling bad about yourself or that you are a failure, or have let yourself or your family down N ot at all, T rouble concentrating on things, such as reading the newspaper or watching television N ot at all, M oving or speaking so slowly that other people could have noticed; or the opposite, being so fidgety or restless that you have been moving around a lot more than usual N ot at all, T houghts that you would be better off or of hurting yourself in some way N ot at all, T otal Score 0 . I nterpretation and Intervention D epression Screening Findings N egative, F ollow-Up for Depression : review of PHQ-9 found negative result, no follow-up needed. C ommunication Needs: Communication Needs D oes the patient have a hearing impairment Y es, I f yes, what is the hearing impairment? H venecia of hearing, D oes the patient have a vision impairment? Y es, I f yes, what is the vision impairment? G lasses, D oes the patient have a cognition impairment? N o. F all Risk: History H ave you had any falls with injury in the past year? N o, H ave you had two or more falls in the past year? N o. S ZEESHAN Questions: SDOH Questions I n the past year have you been worried about losing housing? N o, I n the past year have you or any family members you live with been unable to get any of the following when it was really needed? Check all that apply: N one. S ymptom(s): patient is a 78 yo female here for review of recent labs and follow up of chronic issues. sees dr forbes for her aortic aneurysm. * ROS: G eneral/Constitutional: Patient denies f atigue , headache. C hange in appetite?denies. C hills d enies. F ever d enies. O phthalmologic: Blurred vision d enies. D ischarge d enies. P ain d enies. E NT: Patient denies d ecreased sense of smell , any loss of taste , sore throat. D ecreased hearing d enies. S ore throat d enies. S wollen glands d enies. E ndocrine: Cold intolerance d enies. E xcessive thirst d enies. H eat intolerance d enies. W eight loss d enies. R espiratory: Cough d enies. S hortness of breath at rest d enies. S hortness of breath with exertion d enies. W heezing d enies. C ardiovascular: Chest pain at rest d enies. C hest pain with exertion?denies. I rregular heartbeat d enies. S hortness of breath d enies. ? G astrointestinal: Abdominal pain d enies. C hange in bowel habits d enies. D iarrhea d enies. N ausea d enies. R ectal bleeding d enies. V omiting d enies . G enitourinary: Blood in urine d enies. D ifficulty urinating d enies. F requent urination d enies. U rinary incontinence D enies. M usculoskeletal: Patient denies m uscle aches. P ainful joints d enies. W eakness d enies. P eripheral Vascular: Patient denies r ed and blue toes. S kin: Dry skin d enies. I tching d enies. D enies?Mole(s), changes in moles, new moles or any lesions of concern. D enies P hotosensitivity. R pat d enies. N eurologic: Dizziness d enies. F ainting d enies. H eadache?denies. * Medical History: * Surgical History: * Hospitalization/Major Diagno stic Procedure: * Family History: F ather: 65 yrs, Cardiac. M other: 65 yrs, CVA and Cancer. 1 brother(s) . 2 son(s) , 1 daughter(s) . . Denies mental health/substance abuse family history, Denies mental health/substance abuse family history, Denies mental health/substance abuse family history. * Social History: T obacco Use: T obacco Use/Smoking P atient is a f ormer smoker, H ow long has it been since you last smoked? > 10 years, A dditional Findings: Tobacco Non-User F ormer smoker, currently using no form of tobacco. D rugs/Alcohol: A lcohol Screen D id you have a drink containing alcohol in the past year? Y es, H ow often did you have a drink containing alcohol in the past year? 2 to 3 times a week (3 points), H ow many drinks did you have on a typical day when you were drinking in the past year? 1 or 2 drinks (0 point), H ow often did you have 6 or more drinks on one occasion in the past year? N ever (0 point), P oints 3 , I nterpretation P ositive. M iscellaneous: n o Caffeine. Children: yes. no Community involvements. Exercise: yes, walks 5 days a week 2 miles. Home smoke detector use: yes. Housing: owning. Living with: spouse. Marital status: . Occupation: retired. no Travel outside of the [place]. * Medications: T akingZetia 10 MG Tablet 1 tablet Orally Once a dayAspirin Low Dose 81 MG Tablet Delayed Release TAKE 1 TABLET BY MOUTH EVERY DAY Orally Once a dayVitamin D 2000 UNIT Tablet 2 tab Orally Once a dayamLODIPine Besylate 5 MG Tablet TAKE 1 TABLET BY MOUTH EVERY DAY FOR 90 DAYS Orally Once a dayAtorvastatin Calcium 20 MG Tablet TAKE 1 TAB EVERY DAY FOR 90 DAYS ORALLY ONCE A DAY Orally Once a dayTaking Zetia 10 MG Tablet 1 tablet Orally Once a dayTaking Aspirin Low Dose 81 MG Tablet Delayed Release TAKE 1 TABLET BY MOUTH EVERY DAY Orally Once a dayTaking Vitamin D 2000 UNIT Tablet 2 tab Orally Once a dayTaking amLODIPine Besylate 5 MG Tablet TAKE 1 TABLET BY MOUTH EVERY DAY FOR 90 DAYS Orally Once a dayTaking Atorvastatin Calcium 20 MG Tablet TAKE 1 TAB EVERY DAY FOR 90 DAYS ORALLY ONCE A DAY Orally Once a dayNot-Taking/PRNSulfamethoxazole-Trimethoprim 800-160 MG Tablet [...] Verified] Objective: * Vitals: H t: 64, Wt:145, BMI:24.89, BP:138/80 weight is down 2 pounds since 08-18-23. * P ast Orders: L ab:Comprehensive Dairy. Panel Fast (Order Date - 02/14/2024) (Collection Date - 02/14/2024) Value Reference Range Sodium 141 135-145 - mmol/L Bilirubin Total 0.7 0.0-1.0 - mg/dL Aspartate Amino Transferase 23 5-31 - U/L Alanine Aminotransferase 21 0-31 - U/L Total Protein 6.9 6.5-8.0 - g/dL Albumin Level 4.4 3.5-5.0 - g/dL Alkaline Phosphatase 67 39-117 - U/L Potassium 4.4 3.3-5.1 - mmol/L Chloride 107 96-108 - mmol/L Carbon Dioxide 27 22-29 - mmol/L Anion Gap 11 L 12-20 - Blood Urea Nitrogen 18 H 9-16 - mg/dL Creatinine 0.72 0.5-1.4 - mg/dL Estimated Glomerular Filt Rate > 60 - Glucose Fasting 105 H 60-99 - mg/dL Calcium 9.5 8.4-10.2 - mg/dL L ab:Lipid Panel (Order Date - 02/14/2024) (Collection Date - 02/14/2024) Value Reference Range Triglycerides 73 <150 - mg/dL Cholesterol 143 <200 - mg/dL LDL Cholesterol Calculated 75 <100 - mg/dL HDL Cholesterol 54 >40 - mg/dL L ab:Vitamin D 25-OH Total (Order Date - 02/14/2024) (Collection Date - 02/14/2024) Value Reference Range Vitamin D 25-OH Total 43.4 >30 - ng/mL L ab:Microalbumin, Random (Order Date - 02/14/2024) (Collection Date - 02/14/2024) Value Reference Range Creatinine Urine 52.48 - mg/dL Microalbumin Urine < 5.0 - mg/L Microalbum Creatinine Ratio Ur TNP <30 - ug/ mg cr L ab:Hemoglobin A1c (Order Date - 02/14/2024) (Collection Date - 02/14/2024) Value Reference Range Hemoglobin A1c % 5.5 <6.0 - % Estimated Average Glucose 111 - mg/dL L ab:Complete Blood Count Auto Diff (Order Date - 02/14/2024) (Collection Date - 02/14/2024) Value Reference Range White Blood Count 6.7 4.8-10.8 - X10*3/uL Red Blood Count 4.69 4.20-5.50 - X10*6/uL Hemoglobin 14.0 12.0-16.0 - g/dl Hematocrit 42.7 37.0-47.0 - % Mean Corpuscular Volume 91.0 80.0-98.0 - fL Mean Corpuscular Hemoglobin 29.9 27.0-33.0 - pg Mean Corpuscular HGB Conc 32.8 31.0-35.0 - g/ dl Red Cell Distribution Width 13.0 11.0-16.0 - % Platelet Count 210 160-400 - X10*3/uL Mean Platelet Volume 12.9 H 9.4-12.3 - fL Neutrophils Percent Auto 63.5 45-73 - % Imm Gran Pct Auto 0.4 0.0-0.4 - % Lymphocytes Percent Auto 28.8 20-40 - % Monocytes Percent Auto 6.0 2-11 - % Eosinophils Percent Auto 0.7 0-4 - % Basophils Percent Auto 0.6 0-2 - % NRBC Pct Auto 0.0 0.0-0.2 - /100WBC Neutrophils Absolute Auto 4.3 2.0-8.3 - x10* 3/uL Imm Gran Abs Auto 0.03 0.00-0.03 - X10*3/uL Lymphocytes Absolute Auto 1.9 1.2-4.9 - X10* 3/uL Monocytes Absolute Auto 0.4 0.1-1.2 - X10*3/ uL Eosinophils Absolute Auto 0.1 0.0-0.4 - X10* 3/uL Basophils Absolute Auto 0.0 0.0-0.2 - X10*3/ uL NRBC Abs Auto 0.000 0.0-0.012 - X10*3/uL L ab:UA ClnCatch+Micro w/rflx Cult (Order Date - 02/14/2024) (Collection Date - 02/14/2024) Value Reference Range Color Urine Yellow - Appearance Urine Turbid - PH 8.0 5.0-9.0 - Glucose Urine UA Negative Negative - mg/dL Urine Blood Negative Negative - Specific [place] - Urine 1.015 1.005-1.025 - Urine Protein Negative Neg-Trace - mg/dL Urine Ketones Negative Negative - mg/dL Nitrite Urine Negative Negative - Leukocyte Esterase Urine Negative Negative - RBC Urine 0-2 0-2 - /HPF WBC Urine 0-5 0-5 - /HPF Squamous Epithelial Cell Urine 0-2 0-2 - /HP F Bacteria Urine None Seen None Seen - Hyaline Casts Urine 0-2 0-2 - /LPF * Examination: G eneral Examination: GENERAL APPEARANCE: w ell developed, well nourished, in no acute distress. HEAD: n ormocephalic, atraumatic. EYES: p upils equal, round, reactive to light and accommodation, sclera non-icteric. EARS: n ormal. ORAL CAVITY: m ucosa moist. THROAT: c lear. NECK/THYROID: n benito supple, full range of motion, no cervical lymphadenopathy, no bruits. SKIN: w arm and dry, no suspicious lesions. HEART: r egular rate and rhythm, S1, S2 normal, no murmurs.? LUNGS: c lear to auscultation bilaterally. BREASTS: N o mass, no lump. ABDOMEN: s oft, nontender, nondistended, bowel sounds present, normal, no organomegaly , no masses palpable. RECTAL EXAM: d eclined. FEMALE GENITOURINARY: d one by dredge operator. EXTREMITIES: n o clubbing, cyanosis, or edema. NEUROLOGIC: n onfocal, motor strength normal upper and lower extremities, sensory exam intact. Assessment: * Assessment: 1. P rediabetes - R73.09 (Primary) 2 . P ure hypercholesterolemia - E78.00 3 . E ssential hypertension - I10 4 . C oronary artery disease involving [place] coronary artery of [place] heart without angina pectoris - I25.10 5 . V itamin D deficiency - E55.9 6 . Depression screening - Z13.31 Plan: * Treatment: 2. P ure hypercholesterolemia Continue Zetia Tablet, 10 MG, 1 tablet, Orally, Once a day; C ontinue Atorvastatin Calcium Tablet, 20 MG, TAKE 1 TAB EVERY DAY FOR 90 DAYS ORALLY ONCE A DAY, Orally, Once a day. Notes: has reached goal on the zetia, will continue current regiment 3. E ssential hypertension Continue amLODIPine Besylate Tablet, 5 MG, TAKE 1 TABLET BY MOUTH EVERY DAY FOR 90 DAYS, Orally, Once a day. Notes: well controlled will continue current regiment 4. C oronary artery disease involving [place] coronary artery of [place] heart without angina pectoris Notes: not having any chest pains. is on statins 5. V itamin D deficiency Continue Vitamin D Tablet, 2000 UNIT, 2 tab, Orally, Once a day. Notes: stable, will control current regiment 6. D epression screening Notes: negative screen * Procedure Codes: * Follow Up: 6 Months * * Sign off status: Completed true * Provider: Klever Lentz MD Date: Generated for Juan taylor/Yeimi/Douglasitting on: 12:18 PM EDT History and Physical Notes * HPI (History of Present Illness) Category Sub-Category Detail Notes Category Not es Symptom(s) patient is a 78 yo female here for review of recent labs and follow up of chronic issues. sees dr forbes for her aortic aneurysm Depression Screening PHQ-9 Little inte rest or pleasure in doing things: Not at all Feeling down, depressed, or hopeless: No t at all Trouble falling or staying asleep, or sl eeping too much: Not at all Feeling tired or having little energy: N ot at all Poor appetite or overeating: Not at all Feeling bad about yourself o r that you are a failure, or have let yourself or your family down: Not at all Trouble concentrating on thi ngs, such as reading the newspaper or watching television: Not at all Moving or speaking so slowly that other people could have noticed; or the opposite, being so fidgety or restless that you have been moving around a lot more than usual: Not at all Thoughts that you would be b kami off or of hurting yourself in some way: Not at all Total Score: 0 Interpretation and Intervention Depression Candida sanchez Findings: Negative Follow-Up for Depression: : review of PH Q-9 found negative result, no follow-up needed SDOH Questions SDOH Questions In the past year have you been worried about losing housing?: No In the past year have you or any family members you live with been unable to get any of the following when it was really needed? Check all that apply:: None Fall Risk History Have you had any falls with injury i n the past year?: No Have you had two or more falls in the st year?: No Communication Needs Communication Needs Does the patient have a hearing impairment: Yes If yes, what is the hearing impairment?: Hard of hearing Does the patient have a vision impairmen t?: Yes If yes, what is the vision impairment?: Glasses Does the patient have a cognition impair ment?: No Examination Category Sub-Category Detail Notes Category Not es General Examination GENERAL APPEARANCE: well dev eloped, well nourished, in no acute distress HEAD: normocephalic, atrau matic EYES: pupils equal, round, reactive to light and accommodation, sclera non-icteric EARS: normal THROAT: clear NECK/THYROID: neck supple, full ra nge of motion, no cervical lymphadenopathy, no bruits HEART: regular rate and rhy thm, S1, S2 normal, no murmurs LUNGS: clear to auscultatio n bilaterally ABDOMEN: soft, nontender, non distended, bowel sounds present, normal, no organomegaly , no masses palpable NEUROLOGIC: nonfocal, motor stre ngth normal upper and lower extremities, sensory exam intact SKIN: warm and dry, no leonidas picious lesions EXTREMITIES: no clubbing, cyanosi s, or edema BREASTS: No mass, no lump RECTAL EXAM: declined FEMALE GENITOURINARY: done by dredge operator ORAL CAVITY: mucosa moist
--- OUTSIDE RECORDS SUMMARY | 2024-06-18 07:15 | XMS_ITS ---
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 repeat every 5 min times 3 for 30 days 01/12/2019 Not-Taking Eliquis 5 MG 1 tablet Orally twic e a day for 90 days 01/12/2019 Not-Taking Ibuprofen 800 MG 1 tablet Orally Thre e times a day for 30 day(s) 08/23/2013 Not-Taking Atorvastatin Calcium 20 MG TAKE 1 TAB EVERY DAY FOR 90 DAYS ORALLY ONCE A DAY Orally Once a day Active Vitamin D 2000 UNIT 2 tab Orally Once a day Active Sulfamethoxazole-Trimetho prim 800-160 MG 1 tablet Orally Twice a day for 7 days 11/12/2021 Not-Taking amLODIPine Besylate 5 MG TAKE 1 TABLET B Y MOUTH EVERY DAY FOR 90 DAYS Orally Once a day Active Zetia 10 MG 1 tablet Orally Once a day Active Aspirin Low Dose 81 MG TAKE 1 TABLET BY MOUTH EVERY DAY Orally Once a day for 90 days Active Vital Signs Blood pressure systolic 120 mm Hg 06/18/19 25 Blood pressure diastolic 80 mm Hg 025 Height 64 in 06/18/2024 Weight 140 lbs 06/18/2024 BMI 24.03 kg/m2 06/18/2024 weiight at home is 140 BP 12 080 no temp Encounters Encounter Location Date Provider Diagnosis Gavin Lentz MD [address] [place] [address] [address] [place] [phone] 06/18/2024 Gavin Lentz Cough R05.9 Assessments Encounter Date Diagnosis (ICD Code) Assessment Notes Treatment Notes Treatment Clinical Notes Section Notes 06/18/2024 Cough (ICD-10 - R05.9) [place] [facility] [place] Plan Of Treatment Treatment Notes Assessment Notes Cough [place] [facility] [place]ient's reg Pending Test Test Name Order Date XR CHEST 2 VIEW PA & LAT 06/18/2024 Next Appt Details Provider Name:Gavin Ortega ier, 02/21/2025 11:00:00 AM, [address] [place] [address], Suite [facility], [place], [place], [phone], Progress Notes * Malorie RODRIGUEZ ADOB:[birth year] (79 yo F)Acc No.[id number]:06/18/2024 Patient: Kelly BALDWINMalorie Provider: Klever Lentz MD :1945 A ge:79 Y S ex:Female Date:06/18/2024 Address:[address] [place], [place] [id number] Subjective: * Chief Complaints: * 1 . coughing tired light headed x 1 week Covid test was negative this AM. 2. Audio [phone]. * HPI: S ymptom(s): Telehealth L ocation of provider rendering services: [address] [facility], [address], L ocation of patient: a t address listed in demographics for today's visit, P atmonika identification confirmed using: ADELE Ng ame, T elehealth method: T elephone only. Patient not visible to care provider., C onsent: P atient verbally consented to treatment, Patient verbally consented to billing insurance company, Patient informed of any privacy concerns related to method of visit, T otal time spend talking with patient (minutes) 1 6. * ROS: G eneral/Constitutional: Denies C hills. A dmits F atigue. D enies F ever. D enies H eadache. E NT: Denies S ore throat. R espiratory: Admits C ough. D enies S hortness of breath at rest. D enies S hortness of breath with exertion. D enies S putum production. G astrointestinal: Denies D iarrhea. D enies N ausea. * Medical History: C olonoscopy 2002 due in [address] colon study 03/09, Had cath 2018 showed 65% and 40% that they did not stent dr davila, Hematuria w/u in 2019, Cologuard 12/19/20 negative. * Medications: T aking Aspirin Low Dose 81 MG Tablet Delayed Release TAKE 1 TABLET BY MOUTH EVERY DAY Orally Once a day , Taking Zetia 10 MG Tablet 1 tablet Orally Once a day , Taking amLODIPine Besylate 5 MG Tablet TAKE 1 TABLET BY MOUTH EVERY DAY FOR 90 DAYS Orally Once a day , Taking Vitamin D 2000 UNIT Tablet 2 tab Orally Once a day , Taking Atorvastatin Calcium 20 MG Tablet TAKE 1 TAB EVERY DAY FOR 90 DAYS ORALLY ONCE A DAY Orally Once a day , Not-Taking/PRN Sulfamethoxazole-Trimethoprim 800-160 MG Tablet 1 tablet Orally Twice a day , Not-Taking/PRN Estrace 0.1 MG/GM Cream as directed Vaginal Once a day , Not-Taking/PRN valACYclovir HCl 1 GM Tablet 2 tablets Orally every 12 hrs , Not-Taking/PRN Eliquis 5 MG Tablet 1 tablet Orally twice a day , Not-Taking/PRN Nitrostat 0.4 MG Tablet Sublingual as directed Sublingual one tab for chest pain. repeat every 5 min times 3 , Not-Taking/PRN Ibuprofen 800 MG Tablet 1 tablet Orally Three times a day , Medication List reviewed and reconciled with the patient * Allergies: N .K.D.A. Objective: * Vitals: H t: 64, Wt: 140, BMI:24.03, BP:120/80, Wt-k.5. weiight at home is 140 BP 120/80 no temp. Assessment: * Assessment: 1. C ough - R05.9 (Primary) Plan: * Treatment: * * The named appointment provid er may or may not be the originator of this progress note, and it is not deemed complete until electronically signed by the appointment provider. Sign off status: Pending * Provider: Klever Lentz MD Date: 0 06/18/2024 Generated for Juan taylor/Yeimi/David on: 1 12:20 PM EDT History and Physical Notes * HPI (History of Present Illness) Category Sub-Category Detail Notes Category Not es Symptom(s) Telehealth Location of [facility] rendering services:: [address], [address] Location of patient:: at address listed in demographics for today's visit Patient identification confirmed using:: Name, Telehealth method:: Telephone only. Pat ient not visible to care provider. Consent:: Patient verbally c onsented to treatment, Patient verbally consented to billing insurance company, Patient informed of any privacy concerns related to method of visit Total time spend talking with patient (m inutes): 16
--- OUTSIDE RECORDS SUMMARY | 2024-06-21 09:15 | XMS_ITS ---
Author Organization Gavin Lentz MD Address [address] [place], [place] [id number] Care Team Providers Care Geomagnetician Name Role Phone Gavin Lentz Primary Care Provider [phone] Allergies No Known Allergies REASON FOR VISIT COUGHING 2 WEEKS, audio [phone] Medications Medication SIG (Take, Route, Frequency, Duration) Notes Start Date End Date Status Nitrostat 0.4 MG as directed Sublingu al one tab for chest pain. repeat every 5 min times 3 for 30 days 01/12/2019 Not-Taking Ibuprofen 800 MG 1 tablet Orally Thre e times a day for 30 day(s) 08/23/2013 Not-Taking Zithromax Z-González 250 MG 2 tablet on the irst day, then 1 tablet daily for 4 days Orally Once a day for 5 day(s) 06/21/2024 Active valACYclovir HCl 1 GM 2 tablets Orally e very 12 hrs for 5 days Not-Taking Eliquis 5 MG 1 tablet Orally twic e a day for 90 days 01/12/2019 Not-Taking amLODIPine Besylate 5 MG TAKE 1 TABLET B Y MOUTH EVERY DAY FOR 90 DAYS Orally Once a day Active Vitamin D 2000 UNIT 2 tab Orally Once a day Active Estrace 0.1 MG/GM as directed Vaginal Once a day for 30 days 02/13/2021 Not-Takin g Atorvastatin Calcium 20 MG TAKE 1 TAB EVERY DAY FOR 90 DAYS ORALLY ONCE A DAY Orally Once a day Active Sulfamethoxazole-Trimetho prim 800-160 MG 1 tablet Orally Twice a day for 7 days 11/12/2021 Not-Taking Aspirin Low Dose 81 MG TAKE 1 TABLET BY MOUTH EVERY DAY Orally Once a day for 90 days Active Zetia 10 MG 1 tablet Orally Once a day Not-Taking Encounters Encounter Location Date Provider Diagnosis Gavin Lentz MD [address] [place] [address] [place] [phone] 06/21/2024 Gavin Lentz Bronchitis J40 Assessments Encounter Date Diagnosis (ICD Code) Assessment Notes Treatment Notes Treatment Clinical Notes Section Notes 06/21/2024 Bronchitis (ICD-10 - J40) patient verbalized understanding of medication and directions for use Plan Of Treatment Medication Medication Name Sig Start Date Stop Date Notes Zithromax Z-González 250 MG 2 tablet on the f irst day, then 1 tablet daily for 4 days Orally Once a day for 5 day(s) 06/21/2024 Treatment Notes Assessment Notes Bronchitis patient verbalized u nderstanding of medication and directions for use Next Appt Details Provider Name:Gavin Ortega ier, 02/21/2025 11:00:00 AM, [address] [place] [address], [place] [address], [place], [place], [phone], Progress Notes * Malorie RODRIGUEZ ADOB:[birth year] (79 yo F)Acc No.[id number]:06/21/2024 Patient: Kelly BALDWINMalorie Provider: Klever Lentz MD :1945 A ge:79 Y S ex:Female Date:06/21/2024 Address:[address] [place], [place] [phone] Subjective: * Chief Complaints: * C OUGHING 2 WEEKSAud [phone] * HPI: S ymptom(s): Telehealth L ocation of provider rendering services: 1 [facility], [address], ocation of patient: a t address listed in demographics for today's visit, P atient identification confirmed using: ADELE Ng ame, T elehealth method: T elephone only. Patient not visible to care provider., C onsent: P atient verbally consented to treatment, Patient verbally consented to billing insurance company, Patient informed of any privacy concerns related to method of visit, T ana maria time spend talking with patient (minutes) 1 6. patient is a 79 yo female audio telehealth visit, here for evaluation of cough for 2 weeks/ xray was negative . * ROS: G eneral/Constitutional: Denies C hills. D enies F atigue. D enies F ever. D enies H eadache. E NT: Patient denies d ecreased sense of smell, any loss of taste, sore throat. D enies S ore throat. R espiratory: Admits C ough. D enies S hortness of breath at rest. D enies S hortness of breath with exertion. A dmits S putum production. G astrointestinal: Denies N ausea. M usculoskeletal: Patient denies m uscle aches. P eripheral Vascular: Patient denies r ed and blue toes. * Medical History: * Surgical History: * Hospitalization/Major Diagno stic Procedure: * Medications: T akingAspirin Low Dose 81 MG Tablet Delayed Release TAKE 1 TABLET BY MOUTH EVERY DAY Orally Once a day amLODIPine Besylate 5 MG Tablet TAKE 1 TABLET BY MOUTH EVERY DAY FOR 90 DAYS Orally Once a day Vitamin D 2000 UNIT Tablet 2 tab Orally Once a day Atorvastatin Calcium 20 MG Tablet TAKE 1 TAB EVERY DAY FOR 90 DAYS ORALLY ONCE A DAY Orally Once a day Taking Aspirin Low Dose 81 MG Tablet Delayed Release TAKE 1 TABLET BY MOUTH EVERY DAY Orally Once a day Taking amLODIPine Besylate 5 MG Tablet TAKE 1 TABLET BY MOUTH EVERY DAY FOR 90 DAYS Orally Once a day Taking Vitamin D 2000 UNIT Tablet 2 tab Orally Once a day Taking Atorvastatin Calcium 20 MG Tablet TAKE 1 TAB EVERY DAY FOR 90 DAYS ORALLY ONCE A DAY Orally Once a day Not-Taking/PRNZetia 10 MG Tablet 1 tablet Orally Once a day Sulfamethoxazole-Trimethoprim 800-160 MG Tablet 1 tablet Orally Twice a day Estrace 0.1 MG/GM Cream as directed Vaginal Once a day valACYclovir HCl 1 GM Tablet 2 tablets Orally every 12 hrs Eliquis 5 MG Tablet 1 tablet Orally twice a day Nitrostat 0.4 MG Tablet Sublingual as directed Sublingual one tab for chest pain. repeat every 5 min times 3 Ibuprofen 800 MG Tablet 1 tablet Orally Three times a day Medication List reviewed and reconciled with the patientNot-Taking/PRN Zetia 10 MG Tablet 1 tablet Orally Once a day Not- Taking/PRN Sulfamethoxazole-Trimethoprim 800-160 MG Tablet 1 tablet Orally Twice a day Not-Taking/PRN Estrace 0.1 MG/GM Cream as directed Vaginal Once a day Not- Taking/PRN valACYclovir HCl 1 GM Tablet 2 tablets Orally every 12 hrs Not-Taking/PRN Eliquis 5 MG Tablet 1 tablet Orally twice a day Not-Taking/PRN Nitrostat 0.4 MG Tablet Sublingual as directed Sublingual one tab for chest pain. repeat every 5 min times 3 Not-Taking/PRN Ibuprofen 800 MG Tablet 1 tablet Orally Three times a day Medication List reviewed and reconciled with the patient * Allergies: N .K.D.A.yes[Allergies Verified] Objective: * Vitals: Assessment: * Assessment: 1. B graham - Bindu (Primary) Plan: * Treatment: * Procedure Codes: * * Sign off status: Completed true * Provider: Klever Lentz MD Date: 0 06/21/2024 Generated for Juan taylor/Yeimi/David on: 12:18 PM EDT History and Physical Notes * HPI (History of Present Illness) Category Sub-Category Detail Notes Category Not es Symptom(s) Telehealth Location of [facility] rendering services:: [address] [place] [address] Drive, [address] patient is a 79 yo female audio telehealth visit, here for evaluation of cough for 2 weeks/ xray was negative . Location of patient:: at address listed in [...]
--- OUTSIDE RECORDS SUMMARY | 2024-08-16 03:30 | XMS_ITS ---
Author Organization Gavin Letnz MD Address [address] [place], [place] [phone] Care Team Providers Care Blending Machine Feeder Name Role Phone Gavin Lentz Primary Care Provider Results Component Value Reference Range Notes Liver Panel Reviewed date:08/16/2024 04:55:31 PM Interpretation: Performing Lab:[address] [phone] Notes/Report: Bilirubin Total 0.7 0.0-1.0 mg/dL Bilirubin Direct 0.3 0.0-0.5 mg/dL Aspartate Amino Transferase 26 5-31 U/L Alanine Aminotransferase 21 0-31 U/L Total Protein 6.9 6.5-8.0 g/dL Albumin Level 4.2 3.5-5.0 g/dL Alkaline Phosphatase 67 39-117 U/L Glucose Fasting Reviewed date:08/16/2024 04:55:22 PM Interpretation: Performing Lab:[address] [phone] Notes/Report: Glucose Fasting 96 60-99 mg/dL Lipid Panel with Reflex Reviewed date:08/16/2024 04:55:05 PM Interpretation: Performing Lab:[facility], [address] [place] [phone] Notes/Report: Triglycerides 77 <150 mg/dL Desirable Triglyceride: [...] A1c Reviewed date:08/16/2024 04:55:13 PM Interpretation: Performing Lab:[facility], [address] [place] [phone] Notes/Report: Hemoglobin A1c % 5.3 <6.0 % [...] average glucose, using the formula of the Q7H-Kywreuu Average Glucose study (ADAG), Diabetes Care, Vol.31,#8, Nov. 2007 REASON FOR VISIT fasting lipids Encounters Encounter Location Date Provider Diagnosis Gavin Lentz MD [address] [place] [address] [address] [place], [place] [phone] 08/16/2024 Gavin Lentz Prediabetes R73.09 a nd Pure hypercholesterolemia E78.00 Assessments Encounter Date Diagnosis (ICD Code) Assessment Notes Treatment Notes Treatment Clinical Notes Section Notes 08/16/2024 Prediabetes (ICD-10 - R73.09) 08/16/2024 Pure hypercholesterolemia (ICD-10 - E78.00) Plan Of Treatment Next Appt Details Provider Name:Gavin Ortega ier, 02/21/2025 11:00:00 AM, [address] [facility], [address], [place], [place], [phone], Progress Notes * Malorie RODRIGUEZ ADOB:[birth year] (79 yo F)Acc No.[id number]:08/16/2024 Progress Note Patient: Malorie JARRELL Provider: Klever Lentz MD :1945 A ge:79 Y S ex:Female Date:08/16/2024 Address:[address] [place], [place] [phone] Subjective: * Chief Complaints: * 1 . [...] 0 08/16/2024 Generated for Juan taylor/Yeimi/eTransmitting on: 1 12:18 PM EDT
--- OUTSIDE RECORDS SUMMARY | 2024-08-20 05:15 | XMS_ITS ---
Author Organization Gavin Lentz MD Address [address] [place], [place] [phone] Care Team Providers Care Respiratory Physician Name Role Phone Gavin Lentz Primary Care Provider Allergies No Known Allergies REASON FOR VISIT 6 month Medications Medication SIG (Take, Route, Frequency, Duration) Notes Start Date End Date Status valACYclovir HCl 1 GM 2 tablets Orally [...] a day for 30 day(s) 08/23/2013 Not-Taking Estrace 0.1 MG/GM as directed Vaginal Once a day for 30 days 02/13/2021 Not-Takin g amLODIPine Besylate 5 MG TAKE 1 TABLET B Y MOUTH EVERY DAY FOR 90 DAYS Orally Once a day Active Vitamin D 2000 UNIT 2 tab Orally Once a day Active Atorvastatin Calcium 20 MG TAKE 1 TAB EVERY DAY FOR 90 DAYS ORALLY ONCE A DAY Orally Once a day Active Zetia 10 MG 1 tablet Orally Once a day Not-Taking Sulfamethoxazole-Trimetho prim 800-160 MG 1 tablet Orally Twice a day for 7 days 11/12/2021 Not-Taking Aspirin Low Dose 81 MG TAKE 1 TABLET BY MOUTH EVERY DAY Orally Once a day for 90 days Active Vital Signs Blood pressure systolic 142 mm Hg 08/21/19 25 Blood pressure diastolic 70 mm Hg 025 Height 64 in 08/20/2024 Weight 146 lbs 08/20/2024 BMI 25.06 kg/m2 08/20/2024 weight is up 6 pounds since 06-18-24 Encounters Encounter Location Date Provider Diagnosis Gavin Lentz MD [address] [place], [place] [phone] 08/20/2024 Gavin Lentz Tongue lesion K14.8 ; Coronary artery disease involving benton coronary artery of benton heart without angina pectoris I25.10 ; Prediabetes R73.09 and Pure hypercholesterolemia E78.00 Assessments Encounter Date Diagnosis (ICD Code) Assessment Notes Treatment Notes Treatment Clinical Notes Section Notes 08/20/2024 Tongue lesion (ICD-1 0 - K14.8) send for records from [facility] 08/20/2024 Coronary artery dise ase involving benton coronary artery of benton heart without angina pectoris (ICD-10 - I25.10) has fairly well controlled lipids, will continue current regiment 08/20/2024 Prediabetes (ICD-10 - R73.09) well controllled with a great a1c, no need for medication at this time 08/20/2024 Pure hypercholesterolemia (ICD-10 - E78.00) stable, will continue current regiment Plan Of Treatment Treatment Notes Assessment Notes Tongue lesion send for records [facility] Coronary artery disease invo lving benton coronary artery of benton heart without angina pectoris has fairly well controlled lipids, will continue current regiment Prediabetes well controllled wit h a great a1c, no need for medication at this time Pure hypercholesterolemia stable, will c ontinue current regiment Next Appt Details Provider Name:Gavin Ortega ier, 02/21/2025 11:00:00 AM, [address], [address], [place], [place], [id number], Progress Notes * Malorie RODRIGUEZ ADOB:[birth year] (79 yo F)Acc No.[id number]:08/20/2024 Progress Notes Patient: Malorie JARRELL Provider: Klever Lentz MD :1945 A ge:79 Y S ex:Female Date:08/20/2024 Address:[facility] Subjective: * Chief Complaints: * 6 month * HPI: S ymptom(s): patient is a 79 yo female here for 6 month follow up visit/ here for follow up. had tongue done again was 60% smaller and was precancer. * ROS: G eneral/Constitutional: Denies C hills. D enies F atigue. D enies F ever. D enies H eadache. E NT: Denies S ore throat. R espiratory: Denies C ough. D enies S hortness of breath at rest. D enies S hortness of breath with exertion. C ardiovascular: Denies C hest pain at rest. D enies C hest pain with exertion. D enies D izziness. D enies P alpitations. D enies S hortness of breath. G astrointestinal: Denies D iarrhea. D enies N ausea. * Medical History: * Surgical History: * [...] Verified] Objective: * Vitals: H t: 64, Wt: 146, BMI:25.06, BP:142/70, Wt-k.23. weight is up 6 pounds since 06-18-24. * P ast Orders: L ab:Hemoglobin A1c (Order Date - 08/16/2024) (Collection Date & Time - 08/16/2024 07:30 AM) Value Reference Range Hemoglobin A1c % 5.3 <6.0 - % Estimated Average Glucose 105 - mg/dL L ab:Liver Panel (Order Date - 08/16/2024) (Collection Date & Time - 08/16/2024 07:30 AM) Value Reference Range Bilirubin Total 0.7 0.0-1.0 - mg/dL Bilirubin Direct 0.3 0.0-0.5 - mg/dL Aspartate Amino Transferase 26 5-31 - U/L Alanine Aminotransferase 21 0-31 - U/L Total Protein 6.9 6.5-8.0 - g/dL Albumin Level 4.2 3.5-5.0 - g/dL Alkaline Phosphatase 67 39-117 - U/L L ab:Glucose Fasting (Order Date - 08/16/2024) (Collection Date & Time - 08/16/2024 07:30 AM) Value Reference Range Glucose Fasting 96 60-99 - mg/dL L ab:Lipid Panel with Reflex (Order Date - 08/16/2024) (Collection Date & Time - 08/16/2024 07:30 AM) Value Reference Range Triglycerides 77 <150 - mg/dL Cholesterol 159 <200 - mg/dL LDL Cholesterol Calculated 92 <100 - mg/dL HDL Cholesterol 52 >40 - mg/dL * Examination: G eneral Examination: GENERAL APPEARANCE: a lert, well hydrated, in no distress.? HEAD: n ormocephalic. ORAL CAVITY: h as a small white spot below tongue where she had surgery. SKIN: g ood turgor. HEART: r egular rate and rhythm, no murmurs, rubs, gallops.? LUNGS: n o wheezes, rales, rhonchi, good air movement, clear to auscultation bilaterally. Assessment: * Assessment: 1. T ongue lesion - K14.8 (Primary) 2 . C oronary artery disease involving benton coronary artery of benton heart without angina pectoris - I25.10 3 . P rediabetes - R73.09 4 . P ure hypercholesterolemia - E78.00 Plan: * Treatment: 2. C oronary artery disease involving benton coronary artery of benton heart without angina pectoris Notes: has fairly well controlled lipids, will continue current regiment 3. P rediabetes Notes: well controllled with a great a1c, no need for medication at this time 4. P ure hypercholesterolemia Notes: stable, will continue current regiment * Procedure Codes: * * Sign off status: Completed true * Provider: Klever Lentz MD Date: 0 08/20/2024 Generated for Juan taylor/Yeimi/Douglasitting on: 1 12:20 PM EDT History and Physical Notes * HPI (History of Present Illness) Category Sub-Category Detail Notes Category Not es Symptom(s) patient is a 79 yo female here for 6 month follow up visit/ here for follow up. had tongue done again was 60% smaller and was precancer. Examination Category Sub-Category Detail Notes Category Not es General Examination GENERAL APPEARANCE: alert, w ell hydrated, in no distress HEAD: normocephalic HEART: regular rate and rhy thm, no murmurs, rubs, gallops LUNGS: no wheezes, rales, r honchi, good air movement, clear to auscultation bilaterally SKIN: good turgor ORAL CAVITY: has a small white sp ot below tongue where she had surgery
--- OUTSIDE RECORDS SUMMARY | 2024-10-04 05:59 | XMS_ITS ---
Author Organization Gavin Lentz MD Address [address] [place], [place] [phone] Care Team Providers Care Furnace Door Tender Name Role Phone Gavin Lentz Primary Care Provider REASON FOR VISIT ER Encounters Encounter Location Date Provider Diagnosis Gavin Lentz MD [address] [facility] [address] [place] [phone] 10/04/2024 Gavin Lentz Plan Of Treatment Next Appt Details Provider Name:Gavin Ortega ier, 02/21/2025 11:00:00 AM, [address] [facility], [address] [facility], [place], [place], [phone], Progress Notes * Malorie RODRIGUEZ ADOB:[birth year] (79 yo F)Acc No.[id number]:10/04/2024 Patient: Malorie JARRELL :1945 A ge:79 Y S ex:Female Address:[address] [place] [id number] * true * Date: Generated for Printi ng/Faxing/eTransmitting on: 12:20 PM EDT
--- OUTSIDE RECORDS SUMMARY | 2025-02-11 04:15 | XMS_ITS ---
Author Organization Gavin Lentz MD Address [address] [place], [place] [id number] Care Team Providers Care Orthopedic Dentist Name Role Phone Gavin Lentz Primary Care Provider [phone] Results Component Value Reference Range Notes Complete Blood Count Auto Di ff (Not yet reviewed by provider) Interpretation: Performing Lab:[facility], [address] [place] [phone] Notes/Report: White Blood Count 5.8 4.8-10.8 X10*3/uL Red Blood Count 4.59 4.20-5.50 X10*6/uL Hemoglobin 13.6 12.0-16.0 g/dl Hematocrit 41.7 37.0-47.0 % Mean Corpuscular Volume 90.8 80.0-98.0 fL Mean Corpuscular Hemoglobin 29.6 27.0-33.0 pg Mean Corpuscular HGB Conc 32.6 31.0-35.0 g/dl Red Cell Distribution Width 13.1 11.0-16.0 % Platelet Count 212 160-400 X10*3/uL Mean Platelet Volume 12.6 9.4-12.3 fL Neutrophils Percent Auto 61.1 45-73 % Imm Gran Pct Auto 0.2 0.0-0.4 % Lymphocytes Percent Auto 29.5 20-40 % Monocytes Percent Auto 7.3 2-11 % Eosinophils Percent Auto 1.4 0-4 % Basophils Percent Auto 0.5 0-2 % NRBC Pct Auto 0.0 0.0-0.2 /100WBC Neutrophils Absolute Auto 3.5 2.0-8.3 x10*3/u L Imm Gran Abs Auto 0.01 0.00-0.03 X10*3/uL Lymphocytes Absolute Auto 1.7 1.2-4.9 X10*3/u L Monocytes Absolute Auto 0.4 0.1-1.2 X10*3/uL Eosinophils Absolute Auto 0.1 0.0-0.4 X10*3/u L Basophils Absolute Auto 0.0 0.0-0.2 X10*3/uL NRBC Abs Auto 0.000 0.0-0.012 X10*3/uL Comprehensive [place]. Panel Fa st (Not yet reviewed by provider) Interpretation: Performing Lab:[address] [phone] Notes/Report: Sodium 142 135-145 mmol/L Potassium 4.1 3.3-5.1 mmol/L Chloride 106 96-108 mmol/L Carbon Dioxide 27 22-29 mmol/L Anion Gap 13 12-20 Blood Urea Nitrogen 17 9-16 mg/dL Creatinine 0.58 0.5-1.4 mg/dL Estimated Glomerular Filt Rate > 60 Chronic Kidney Disease: Estimated GFR < 60 mL/min/1.73m2 Severe Kidney Disease: Estimated GFR < 15 mL/min/1.73m2 Glucose Fasting 105 60-99 mg/dL A fasting glucose from 100-125 mg/dl is considered impaired (pre-diabetes). Calcium 9.1 8.4-10.2 mg/dL Bilirubin Total 0.6 0.0-1.0 mg/dL Aspartate Amino Transferase 27 5-31 U/L Alanine Aminotransferase 19 0-31 U/L Total Protein 6.8 6.5-8.0 g/dL Albumin Level 4.4 3.5-5.0 g/dL Alkaline Phosphatase 79 39-117 U/L Microalbumin, Random (Not ye t reviewed by provider) Interpretation: Performing Lab:[address] [phone] Notes/Report: Creatinine Urine 123.73 Microalbumin Urine 8.0 Microalbum/Creatinine Ratio Ur 6.4 <30 ug/mg cr Albumin/Creatinine Ratio Reference Ranges: Normal: < 30 ug/mg creatinine Microalbuminuria: 30 - 300 ug/mg creatinine Clinical Albuminuria: > 300 ug/mg creatinine UA ClnCatch+Micro w/rflx Cul t (Not yet reviewed by provider) Interpretation: Performing Lab:[facility], [address] [place] [phone] Notes/Report: [id number] Urine, Clean Catch Color Urine Yellow Appearance Urine Clear PH 6.0 5.0-9.0 Glucose Urine UA Negative Negative mg/dL Urine Blood Negative Negative Specific [place] - Urine 1.025 1.005-1.025 Urine Protein Negative Neg-Trace mg/dL Urine Ketones Negative Negative mg/dL Nitrite Urine Negative Negative Leukocyte Esterase Urine Negative Negative RBC Urine 0-2 0-2 /HPF WBC Urine 0-5 0-5 /HPF Squamous Epithelial Cell Urine 0-2 0-2 /HPF Calcium Oxalate Crystals Urine Present Bacteria Urine None Seen None Seen Hyaline Casts Urine 0-2 0-2 /LPF Lipid Panel Reviewed date:02/11/2025 12:10:40 PM Interpretation: Performing Lab:[facility], [address] [place] [phone] Notes/Report: Triglycerides 113 <150 mg/dL Desirable Triglyceride: less than 150 mg/dL Borderline High Triglyceride 150-199 mg/dL High Triglyceride: 200-499 mg/dL Very High Triglyceride: greater than or equal to 5OO mg/dL Cholesterol 168 <200 mg/dL Desirable Cholesterol: less than 200 mg/dL Borderline High Cholesterol: 200-239 mg/dL High Cholesterol: greater than 239 mg/dL LDL Cholesterol Calculated 101 <100 mg/dL Desirable LDL: less than 100 mg/dL Near Optimal/Above Optimal LDL: 110-129 mg/dL Borderline High LDL: 130-159 mg/dL High LDL: 160-189 mg/dL Very High LDL: greater than or equal to 190 mg/dL HDL Cholesterol 45 >40 mg/dL Desirable HDL: greater than 40 mg/dL Note: This HDL assay may give artificially low results in patients with liver disease. Vitamin D 25-OH Total Reviewed date:02/11/2025 12:11:15 PM Interpretation: Performing Lab:[facility], [address] [place] [phone] Notes/Report: Vitamin D 25-OH Total 75.7 >30 ng/mL Health Based Reference Values* < 20 ng/mL Deficient 20-30 ng/mL Insufficient > 30 ng/mL Sufficient *Mateo DOWNING. N Engl J Med. 2007;357:266-280 There is no well-established upper level of normal vitamin D levels. Some laboratories use 50 ng/mL as an upper limit of normal. However, toxicity is patient-dependent and may occur at any level. Careful correlation with the patient's presentation is necessary and, if there is concern for vitamin D toxicity, treatment should be considered irrespective of the serum level. Care must be taken in interpreting Vitamin [...] confirmed with another method such as LC-MS/MS. Hemoglobin A1c Reviewed date:02/11/2025 12:09:35 PM Interpretation: Performing Lab:[facility], [address] [place] [phone] Notes/Report: Hemoglobin A1c % 5.5 <6.0 % [...] average glucose, using the formula of the [id number]-[id number] Average Glucose study (ADAG), Diabetes Care, Vol.31,#8, Nov. 2007 REASON FOR VISIT Annual labs Encounters Encounter Location Date Provider Diagnosis Gavin Lentz MD [address] [place] [address] [address] [place], [place] [id number] 02/11/2025 Gavin Lentz Blood tests for rout ine general physical examination Z00.00 ; Prediabetes R73.09 ; Pure hypercholesterolemia E78.00 ; Vitamin D deficiency E55.9 and Essential hypertension I10 Assessments Encounter Date Diagnosis (ICD Code) Assessment Notes Treatment Notes Treatment Clinical Notes Section Notes 02/11/2025 Blood tests for rout ine general physical examination (ICD-10 - Z00.00) 02/11/2025 Prediabetes (ICD-10 - R73.09) 02/11/2025 Pure hypercholesterolemia (ICD-10 - E78.00) 02/11/2025 Vitamin D deficiency (ICD-10 - E55.9) 02/11/2025 Essential hypertensi on (ICD-10 - I10) Plan Of Treatment Pending Test Test Name Order Date Complete Blood Count Auto Diff Comprehensive [place]. Panel Fast 5 Microalbumin, Random 02/11/2025 UA ClnCatch+Micro w/rflx Cult 02/11/2025 Next Appt Details Provider Name:Gavin Orteag ier, 02/21/2025 11:00:00 AM, [address] [place] [address], [address], [place], [id number], Progress Notes * Malorie RODRIGUEZ ADOB:[birth year] (79 yo F)Acc No.[id number]:02/11/2025 Progress Note Patient: Malorie JARRELL Provider: Klever Lentz MD :1945 A ge:79 Y S ex:Female Date:02/11/2025 Address:[address] [place] [address] Subjective: * Chief Complaints: * 1 . Annual labs. * Medical History: Objective: * Vitals: Assessment: * Assessment: 1. B lood tests for routine general physical examination - Z00.00 (Primary) 2 .?Prediabetes - R73.09 3 . P ure hypercholesterolemia - E78.00 ?4. V itamin D deficiency - E55.9 5 . E ssential hypertension - I10 ? Plan: * Treatment: 2. P rediabetes L AB: Complete Blood Count Auto Diff (Collection Date & Time - 02/11/2025 08:15 AM) L AB: Comprehensive [place]. Panel Fast (Collection Date & Time - 02/11/2025 08:15 AM) L AB: Microalbumin, Random (Collection Date & Time - 02/11/2025 08:15 AM) L AB: UA ClnCatch+Micro w/rflx Cult (Collection Date & Time - 02/11/2025 08:15 AM) L AB: Lipid Panel (Collection Date & Time - 02/11/2025 08:15 AM) L AB: Vitamin D 25-OH Total (Collection Date & Time - 02/11/2025 08:15 AM) L AB: Hemoglobin A1c (Collection Date & Time - 02/11/2025 08:15 AM) 3. P ure hypercholesterolemia L AB: Complete Blood Count Auto Diff (Collection Date & Time - 02/11/2025 08:15 AM) L AB: Comprehensive [place]. Panel Fast (Collection Date & Time - 02/11/2025 08:15 AM) L AB: Microalbumin, Random (Collection Date & Time - 02/11/2025 08:15 AM) L AB: UA ClnCatch+Micro w/rflx Cult (Collection Date & Time - 02/11/2025 08:15 AM) L AB: Lipid Panel (Collection Date & Time - 02/11/2025 08:15 AM) L AB: Vitamin D 25-OH Total (Collection Date & Time - 02/11/2025 08:15 AM) L AB: Hemoglobin A1c (Collection Date & Time - 02/11/2025 08:15 AM) 4. V itamin D deficiency L AB: Complete Blood Count Auto Diff (Collection Date & Time - 02/11/2025 08:15 AM) L AB: Comprehensive [place]. Panel Fast (Collection Date & Time - 02/11/2025 08:15 AM) L AB: Microalbumin, Random (Collection Date & Time - 02/11/2025 08:15 AM) L AB: UA ClnCatch+Micro w/rflx Cult (Collection Date & Time - 02/11/2025 08:15 AM) L AB: Lipid Panel (Collection Date & Time - 02/11/2025 08:15 AM) L AB: Vitamin D 25-OH Total (Collection Date & Time - 02/11/2025 08:15 AM) L AB: Hemoglobin A1c (Collection Date & Time - 02/11/2025 08:15 AM) 5. E ssential hypertension L AB: Complete Blood Count Auto Diff (Collection Date & Time - 02/11/2025 08:15 AM) L AB: Comprehensive [place]. Panel Fast (Collection Date & Time - 02/11/2025 08:15 AM) L AB: Microalbumin, Random (Collection Date & Time - 02/11/2025 08:15 AM) L AB: UA ClnCatch+Micro w/rflx Cult (Collection Date & Time - 02/11/2025 08:15 AM) L AB: Lipid Panel (Collection Date & Time - 02/11/2025 08:15 AM) L AB: Vitamin D 25-OH Total (Collection Date & Time - 02/11/2025 08:15 AM) L AB: Hemoglobin A1c (Collection Date & Time - 02/11/2025 08:15 AM) * Procedure Codes: 3 6415 VENIPUNCT, ROUTINE* * * The named appointment provid er may or may not be the originator of this progress note, and it is not deemed complete until electronically signed by the appointment provider. Sign off status: Pending * Provider: Klever Lentz MD Date: 1 Generated for Juan taylor/Yeimi/Douglasitting on: 12:19 PM EDT
[2025-02-11 10:31] LABS: MANUAL DIFF FLAG NO
[2025-02-11 10:58] LABS: Appearance Urine Clear; Glucose Urine UA Negative (Negative); PH 6.0 (5.0-9.0); Specific Gravity - Urine 1.025 (1.005-1.025)
[2025-02-11 11:03] LABS: Hematocrit 41.7 % (37.0-47.0); Hemoglobin 13.6 g/dl (12.0-16.0); Imm Gran Abs Auto 0.01 X10*3/uL (0.00-0.03); Imm Gran Pct Auto 0.2 % (0.0-0.4); Lymphocytes Absolute Auto 1.7 X10*3/uL (1.2-4.9); Mean Corpuscular HGB Conc 32.6 g/dl (31.0-35.0); Mean Corpuscular Hemoglobin 29.6 pg (27.0-33.0); Mean Corpuscular Volume 90.8 fL (80.0-98.0); NRBC Abs Auto 0.000 X10*3/uL (0.0-0.012); NRBC Pct Auto 0.0 /100WBC (0.0-0.2); Platelet Count 212 X10*3/uL (160-400); Red Blood Count 4.59 X10*6/uL (4.20-5.50); White Blood Count 5.8 X10*3/uL (4.8-10.8)
[2025-02-11 11:31] LABS: Alanine Aminotransferase 19 U/L (0-31); Albumin Level 4.4 g/dL (3.5-5.0); Alkaline Phosphatase 79 U/L (39-117); Anion Gap 13 (12-20); Aspartate Amino Transferase 27 U/L (5-31); Blood Urea Nitrogen 17 mg/dL (9-16); Calcium 9.1 mg/dL (8.4-10.2); Carbon Dioxide 27 mmol/L (22-29); Chloride 106 mmol/L (96-108); Cholesterol 168 mg/dL (<200); Estimated Glomerular Filt Rate > 60; HDL Cholesterol 45 mg/dL (>40); Potassium 4.1 mmol/L (3.3-5.1); Sodium 142 mmol/L (135-145); Total Protein 6.8 g/dL (6.5-8.0); Triglycerides 113 mg/dL (<150)
[2025-02-11 11:38] LABS: Microalbum/Creatinine Ratio Ur 6.4 ug/mg cr (<30)
--- OUTSIDE RECORDS SUMMARY | 2025-02-11 12:20 | XMS_ITS | Patient Health Record ---
Author Organization Gavin Lentz MD Address [address] [place], [place] [id number] Care Team Providers Care Mft Name Role Phone Gavin Lentz Primary Care Provider [phone] Allergies No Known Allergies Results Component Value Reference Range Notes Liver Panel Reviewed date:08/16/2024 04:55:31 PM Interpretation: Performing Lab:[address] [address] Notes/Report: Bilirubin Total 0.7 0.0-1.0 mg/dL Bilirubin Direct 0.3 0.0-0.5 mg/dL Aspartate Amino Transferase 26 5-31 U/L Alanine Aminotransferase 21 0-31 U/L Total Protein 6.9 6.5-8.0 g/dL Albumin Level 4.2 3.5-5.0 g/dL Alkaline Phosphatase 67 39-117 U/L Glucose Fasting Reviewed date:08/16/2024 04:55:22 PM Interpretation: Performing Lab:[address] [address] Notes/Report: Glucose Fasting 96 60-99 mg/dL Lipid Panel with Reflex Reviewed date:08/16/2024 04:55:05 PM Interpretation: Performing Lab:[facility], [address] [place] [address] Notes/Report: Triglycerides 77 <150 mg/dL Desirable Triglyceride: [...] A1c Reviewed date:08/16/2024 04:55:13 PM Interpretation: Performing Lab:[address] [address] Notes/Report: Hemoglobin A1c % 5.3 <6.0 % [...] average glucose, using the formula of the N5C-Jhnidja Average Glucose study (ADAG), Diabetes Care, Vol.31,#8, Nov. 2007 Complete Blood Count Auto Di ff (Not yet reviewed by provider) Interpretation: Performing Lab:[address] [address] Notes/Report: White Blood Count 5.8 4.8-10.8 X10*3/uL [...] 0.0-0.2 /100WBC Neutrophils Absolute Auto 3.5 2.0-8.3 x10*3/uL Imm Gran Abs Auto 0.01 0.00-0.03 X10*3/uL Lymphocytes Absolute Auto 1.7 1.2-4.9 X10*3/uL Monocytes Absolute Auto 0.4 0.1-1.2 X10*3/uL Eosinophils Absolute Auto 0.1 0.0-0.4 X10*3/uL Basophils Absolute Auto 0.0 0.0-0.2 X10*3/uL NRBC Abs Auto 0.000 0.0-0.012 X10*3/uL Comprehensive Lavina. Panel Fa st (Not yet reviewed by provider) Interpretation: Performing Lab:[facility], [address] [place] [address] Notes/Report: Sodium 142 135-145 mmol/L Potassium 4.1 [...] ye t reviewed by provider) Interpretation: Performing Lab:[address] [address] Notes/Report: Creatinine Urine 123.73 Microalbumin Urine 8.0 Microalbum/Creatinine Ratio Ur 6.4 <30 ug/mg cr Albumin/Creatinine Ratio Reference Ranges: Normal: < 30 ug/mg creatinine Microalbuminuria: 30 - 300 ug/mg creatinine Clinical Albuminuria: > 300 ug/mg creatinine UA ClnCatch+Micro w/rflx Cul t (Not yet reviewed by provider) Interpretation: Performing Lab:[address] [address] Notes/Report: [id number] Urine, Clean Catch Color Urine Yellow Appearance Urine Clear PH 6.0 5.0-9.0 Glucose Urine UA Negative Negative mg/dL Urine Blood Negative Negative Specific Bennett - Urine 1.025 1.005-1.025 Urine Protein Negative [...] Panel Reviewed date:02/11/2025 12:10:40 PM Interpretation: Performing Lab:[address] [address] Notes/Report: Triglycerides 113 <150 mg/dL Desirable Triglyceride: [...] Total Reviewed date:02/11/2025 12:11:15 PM Interpretation: Performing Lab:[address] [address] Notes/Report: Vitamin D 25-OH Total 75.7 >30 [...] A1c Reviewed date:02/11/2025 12:09:35 PM Interpretation: Performing Lab:[address] [address] Notes/Report: Hemoglobin A1c % 5.5 <6.0 % [...] average glucose, using the formula of the B2H-Tiuxicj Average Glucose study (ADAG), Diabetes Care, Vol.31,#8, 2007 Complete Blood Count Auto Di ff Reviewed date:02/14/2024 08:45:06 PM Interpretation: Performing Lab:[facility], [address] [place] [phone] Notes/Report: White Blood Count 6.7 4.8-10.8 X10*3/uL [...] NRBC Abs Auto 0.000 0.0-0.012 X10*3/uL Comprehensive Lavina. Panel Fa st Reviewed date:02/15/2024 05:07:53 PM Interpretation: Performing Lab:[facility], [address] [place] [phone] Notes/Report: Sodium 141 135-145 mmol/L Potassium 4.4 3.3-5.1 mmol/L Chloride 107 96-108 mmol/L Carbon Dioxide 27 22-29 mmol/L Anion Gap 11 12-20 Blood Urea Nitrogen 18 9-16 mg/dL Creatinine 0.72 0.5-1.4 mg/dL Estimated Glomerular Filt Rate > 60 NOTE: For -Maltese individuals, multiply the result by 1.210. Chronic [...] Panel Reviewed date:02/14/2024 08:36:01 PM Interpretation: Performing Lab:[facility], [address] [place] [phone] Notes/Report: Triglycerides 73 <150 mg/dL Desirable Triglyceride: [...] Reviewed date:02/14/2024 08:37:09 PM Interpretation: Performing Lab:[address], [place] [address] Notes/Report: Vitamin D 25-OH Total 43.4 >30 [...] Random Reviewed date:02/14/2024 08:35:09 PM Interpretation: Performing Lab:[address] [address] Notes/Report: Creatinine Urine 52.48 Microalbumin Urine < 5.0 Microalbum/Creatinine Ratio Ur TNP <30 ug/mg cr Unable to calculate albumin/creatinine ratio due to low microalbumin or creatinine result. Hemoglobin A1c Reviewed date:02/14/2024 08:35:29 PM Interpretation: Performing Lab:[address] [address] Notes/Report: Hemoglobin A1c % 5.5 <6.0 % [...] average glucose, using the formula of the N9G-Ctiktvj Average Glucose study (ADAG), Diabetes Care, Vol.31,#8, Nov. 2007 UA ClnCatch+Micro w/rflx Cul t Reviewed date:02/14/2024 08:44:46 PM Interpretation: Performing Lab:[address] [address] Notes/Report: [id number] Urine, Clean Catch Color Urine Yellow Appearance Urine Turbid PH 8.0 5.0-9.0 Glucose Urine UA Negative Negative mg/dL Urine Blood Negative Negative Specific Bennett - Urine 1.015 1.005-1.025 Urine Protein Negative Neg-Trace mg/dL Urine Ketones Negative Negative mg/dL Nitrite Urine Negative Negative Leukocyte Esterase Urine Negative Negative RBC Urine 0-2 0-2 /HPF WBC Urine 0-5 0-5 /HPF Squamous Epithelial Cell Urine 0-2 0-2 /HPF Bacteria Urine None Seen None Seen Hyaline Casts Urine 0-2 0-2 /LPF XR chest 2V Reviewed date:06/18/2024 05:09:53 PM Interpretation: Performing Lab: Notes/Report: [address] [address] XRay Report Signed Patient: Malorie Duvall MR#: [id number] 711 : 1945 Acct:[id number] Age/Sex: 79 / F ADM Date: 06/18/24 Loc: [facility] Attending Dr: Gavin Lentz MD Ordering Physician: Gavin Lentz MD Date of Service: 06/18/24 Procedure(s): XR chest 2V Accession Number(s): [id number] cc: Gavin Lentz MD EXAMINATION: XR CHEST [...] by: Tong Kwan MD 06/18/2024 01:09 PM [facility] Dictated By: Tong Kwan MD Signed By: <Electronically signed by Tong Kwan MD in OV> 06/18/24 1309 DD/ 1227 TD/TT: 06/18/24 1240 Computer Technologist: [place] [address] XRay Report Signed Patient: Baltazar Duvall MR#: [id number] 711 : 1945 Acct:[id number] Age/Sex: 79 / F ADM Date: 06/18/24 Loc: HO.XRAY Attending Dr: Gavin Lentz MD Ordering Physician: Gavin Lentz MD Date of Service: 06/18/24 Procedure(s): XR jeffrey st 2V Accession Number(s): [id number] cc: Gavin Lentz MD EXAMINATION: XR CHEST CLINICAL INFORMATION: COUGH COMPARISON: 08/22/2021. TECHNIQUE: 2 views of the chest were obtained. FINDINGS: The cardiac, hilar, and mediastinal contours are normal. The aorta is calcified and quite tortuous. The lungs are hyperaerated bilaterally, however clear. There is no pneumothorax or pleu ral effusion. There is no focal osseous or soft tissue abnormality. There are degenerative spinal changes and shoulder joint changes. X R/XR chest 2V IMPRESSION: Hyperaerated lungs without evidence of active disease. Electronically mary d by: Tong Kwan MD 06/18/2024 01:09 PM [facility] Dictated By: Tong Kwan MD Signed By: <Electronically signed by Tong Kwan MD in OV> 06/18/24 1309 DD/ 1227 TD/TT: 06/18/24 1240 Computer Technologist: Wendy Abraham Reviewed date:08/16/2024 04:52:54 PM Interpretation: Performing Lab:[facility], [address] [place] [phone] Notes/Report: Wendy Abraham See Note Specimen held untested for 24 hours; Call to request Chemistry testing. XR foot LT min 3V Reviewed date:10/04/2024 12:38:57 PM Interpretation: Performing Lab: Notes/Report: [address] [address] XRay Report Signed Patient: Malorie Duvall MR#: [id number] 711 : 1945 Acct:[id number] Age/Sex: 79 / F ADM Date: 10/04/24 Loc: HO.ED Attending Dr: Ordering Physician: Eusebia Hein DO Date of Service: 10/04/24 Procedure(s): XR foot LT min 3V Accession Number(s): [id number] cc: Gavin Lentz MD; Eusebia Hein DO CLINICAL HISTORY: ?glass in foot 3 view left foot Comparison: None Findings: Decreased bone mineralization. Midfoot sac can not be excluded on these nonweightbearing radiographs. Correlate clinically. No fractures or dislocations. No radiopaque foreign body. Xhmm-vz-upfujzxo degenerative changes at some levels. IMPRESSION: No radiopaque foreign body. This document has been electronically signed by: Carey Chinchilla MD on 10/04/2024 07:35:21 Dictated By: Carey Chinchilla MD Signed By: <Electronically signed by Carey Chinchilla MD in OV> 10/04/24735 DD/ 4 TD/TT: 10/04/24734 Computer Technologist: [place] [address] XRay Report Signed Patient: Baltazar Duvall MR#: [id number] 711 : 1945 Acct:[id number] Age/Sex: 79 / F ADM Date: 10/04/24 Loc: HO.ED Attending Dr: Ordering Physician: Esuebia Hein DO Date of Service: 10/04/24 Procedure(s): XR inderjit t LT min 3V Accession Number(s): [id number] cc: Gavin Lentz MD; Eusebia Hein DO CLINICAL HISTORY: ?g lass in foot 3 view left foot Comparison: None Findings: Decreased bone mineralization. Midfoot sac can not be excluded on these nonweightbearing radiographs. Correlate clinically. No fractures or dislocations. No radiopaque foreig n body. Frng-qp-oisqrujq degenerative changes at some levels. IMPRESSION: No radiopaque foreig n body. This document has be en electronically signed by: Carey Chinchilla MD on 10/04/2024 07:35:21 Dictated By: Flavio Chinchilla MD Signed By: <Electronically signed by Carey Chinchilla MD in OV> 10/04/24735 DD/ TD/TT: 10/04/2435 Computer Technologist: MM tomosynthesis screening B I Reviewed date:12/05/2024 02:18:08 PM Interpretation: Performing Lab: Notes/Report: [place] [facility] [address] [place] [address] Mammography Report Signed Patient: Malorie Duvall MR#: [id number] 711 : 1945 Acct:[id number] Age/Sex: 79 / F ADM Date: 11/21/24 Loc: HO.MAMMO Attending Dr: Gavin Lentz MD Ordering Physician: Gavin Lentz MD Results: 2Be nign Findings Date of Service: 11/21/24 Follow Up: 1 Year From Orig inal Mammogram Procedure(s): MM tomosynthesis screening BI Accession Number(s): [id number] cc: Gavin Lentz MD EXAMINATION: MM SCREENING DIGITAL BREAST TOMOSYNTHESIS, BILATERAL CLINICAL INFORMATION: Screening. Asymptomatic. COMPARISON: Mammography: Comparison is made with available priors TECHNIQUE: Digital breast mammography with tomosynthesis is performed in both the craniocaudal and mediolateral oblique views along with computer-aided detection (CAD). FINDINGS: There are scattered areas of fibroglandular density (ACR BI-RADS breast composition Category b). Right breast post surgical changes. There are no significant masses, abnormal calcifications, or other abnormalities. MM/MM tomosynthesis screening BI IMPRESSION: No mammographic evidence of malignancy. ASSESSMENT: BI-RADS BI-RADS 2 - Benign Findings RECOMMENDATION: Routine annual mammography screening. 1 year F/U This examination should not preclude the clinical evaluation of a suspicious palpable abnormality. This patient's information was entered into a reminder system with a target due date for their next mammogram. Electronically signed by: Zulema Martinez DO 11/30/2024 04:21 PM EDT Dictated By: Zulema Martinez DO Signed By: <Electronically signed by Zulema Martinez DO in OV> 11/30/24 1621 DD/ 0827 TD/TT: 11/21/24 0846 Computer Technologist: [facility] [address] [place] [address] Mammography Report Signed Patient: Baltazar Duvall MR#: [id number] 711 : 1945 Acct:[id number] Age/Sex: 79 / F ADM Date: 11/21/24 Loc: HO.MAMMO Attending Dr: Gavin Lentz MD Ordering Physician: Gavin Lentz MD Results: 2Be nign Findings Date of Service: 11/21/24 Follow Up: 1 Year From Orig ina Mammogram Procedure(s): MM tomosynthesis screening BI Accession Number(s): [id number] cc: Gavin Lentz MD EXAMINATION: MM SCREENING DIGITAL BREAST TOMOSYNTHESIS, BILATERAL CLINICAL INFORMATION: Screening. Asymptomatic. COMPARISON: Mammography: Compari son is made with available priors TECHNIQUE: Digital breast mammography with tomosynthesis is performed in both the craniocaudal and mediolateral oblique views along with computer-aided detection (CAD). FINDINGS: There are scattered areas of fibroglandular density (ACR BI-RADS breast composition Category b). Right breast post surgical changes. There are no signifi cant masses, abnormal calcifications, or other abnormalities. M M/MM tomosynthesis screening BI IMPRESSION: No mammographic evid ence of malignancy. ASSESSMENT: BI-RADS BI-RADS 2 - Benign Findings RECOMMENDATION: Routine annual mammography screening. 1 year F/U This examination fred uld not preclude the clinical evaluation of a suspicious palpable abnormality. This patient's information was entered into a reminder system with a target due date for their next mammogram. Electronically mary d by: Zulema Martinez DO 11/30/2024 04:21 PM EDT Dictated By: Zulema Martinez DO Signed By: <Electronically signed by Zulema Martinez DO in OV> 11/30/24 1621 DD/ TD/TT: 11/21/2446 Computer Technologist: Wendy Chavez date:02/11/2025 12:09:00 PM Interpretation: Performing Lab:[facility], [address] [place] [phone] Notes/Report: Hold Gold See Note Specimen held untested for 24 [...] times 3 for 30 days 01/12/2019 Not-Taking amLODIPine Besylate 5 MG TAKE 1 TABLET B Y MOUTH EVERY DAY for 90 Active Ibuprofen 800 MG 1 tablet Orally Thre e times a day for 30 day(s) 08/23/2013 Not-Taking Aspirin Low Dose 81 MG TAKE 1 TABLET BY MOUTH EVERY DAY Orally Once a day for 90 days Active Atorvastatin Calcium 20 MG TAKE 1 TABLET BY MOUTH EVERY DAY for 90 Active Vitamin D 2000 UNIT 2 tab Orally Once a day Active Zetia 10 MG 1 tablet Orally Once a day Not-Taking Sulfamethoxazole-Trimetho prim 800-160 MG 1 tablet Orally Twice a day for 7 days 11/12/2021 Not-Taking Estrace 0.1 MG/GM as directed Vaginal Once a day for 30 days 02/13/2021 Not-Takin g Immunizations Vaccine Route Administration Date Status Comme [...] Problem Status W/U Status Risk Notes Problem 16717136 Vitamin D defici ency (E55.9) Active confirmed Problem 560744511 Osteopenia (M85.80) Active confirmed Problem 15767113 Essential hypert ension (I10) Active confirmed Problem 2108646 Prediabetes (R73.09) Active confirmed Problem 24595009 Thoracic aortic aneurysm without rupture (I71.2) Active confirmed Problem 4783611919252 Coronary artery disease involving [place] coronary artery of [place] heart without angina pectoris (I25.10) Active confirmed Problem 821617727 Vaginal atrophy (N95.2) Active confir med Problem 168087875 Pure hypercholesterolemia (E78.00) Active confirmed Problem 678471297 Nodule of kidney (N28.89) Active confirmed Problem 5635896 Atrial flutter, unspecified type (I48.92) Active confirmed Vital Signs Blood pressure diastolic 70 mm Hg 08/20/2024 heron ght is up 6 pounds since 06-18-24 Height 64 in 08/20/2024 weight is up 6 pounds since 06-18-24 Blood pressure systolic 142 mm Hg 08/20/2024 weig ht is up 6 pounds since 06-18-24 Weight 146 lbs 08/20/2024 weight is up 6 pounds since 06-18-24 BMI 25.06 kg/m2 08/20/2024 weight is up 6 pounds since 06-18-24 Encounters Encounter Location Date Provider Diagnosis Gavin Lentz MD [address] [place] [id number] 06/18/2024 Gavin Lentz Cough R05.9 Gavin Lentz MD [address] [place] [id number] 08/16/2024 Gavin Lentz Prediabetes R73.09 a nd Pure hypercholesterolemia E78.00 Gavin Lentz MD [address] [place] [id number] 02/11/2025 Gavin Lentz Blood tests for rout ine general physical examination Z00.00 ; Prediabetes R73.09 ; Pure hypercholesterolemia E78.00 ; Vitamin D deficiency E55.9 and Essential hypertension I10 Gavin Lentz MD [address] [place] [id number] 02/14/2024 Gavin Lentz Prediabetes R73.09 ; Pure hypercholesterolemia E78.00 ; Vitamin D deficiency E55.9 and Essential hypertension I10 Gavin Lentz MD [address] [id number] 02/21/2024 Gavin Lentz Prediabetes R73.09 ; Pure hypercholesterolemia E78.00 ; Essential hypertension I10 ; Coronary artery disease involving [place] coronary artery of [place] heart without angina pectoris I25.10 ; Vitamin D deficiency E55.9 and Depression screening Z13.31 Gavin Lentz MD [address] [place] [id number] 06/21/2024 Gavin Lentz Bronchitis J40 Gavin Lentz MD [address] [place] [id number] 08/20/2024 Gavin Lentz Tongue lesion K14.8 ; Coronary artery disease involving [place] coronary artery of [place] heart without angina pectoris I25.10 ; Prediabetes R73.09 and Pure hypercholesterolemia E78.00 Gavin Lentz MD [address] [place] [id number] 10/04/2024Aron Lentz Assessments Encounter Date Diagnosis (ICD Code) Assessment Notes Treatment Notes Treatment Clinical Notes Section Notes 06/18/2024 Cough (ICD-10 - R05.9) order faxed to [facility] patient's reg 08/16/2024 Prediabetes (ICD-10 - R73.09) 02/11/2025 [address] tests [address] rout ine general physical examination (ICD-10 - Z00.00) 02/14/2024 Prediabetes (ICD-10 - R73.09) 02/14/2024 Pure hypercholesterolemia (ICD-10 - E78.00) 02/21/2024 Prediabetes (ICD-10 - R73.09) doing well with good a1c, no need for medication at this time 02/21/2024 Pure hypercholesterolemia (ICD-10 - E78.00) has reached goal on the zetia, will continue current regiment 06/21/2024 Bronchitis (ICD-10 - J40) patient verbalized understanding of medication and directions for use 08/20/2024 Tongue lesion (ICD-1 0 - K14.8) send for records from [facility] 08/16/2024 Pure hypercholesterolemia (ICD-10 - E78.00) 02/11/2025 Prediabetes (ICD-10 - R73.09) 02/14/2024 Vitamin D deficiency (ICD-10 - E55.9) 02/21/2024 Essential hypertensi on (ICD-10 - I10) well controlled will continue current regiment 08/20/2024 Coronary artery dise ase involving [place] coronary artery of [place] heart without angina pectoris (ICD-10 - I25.10) has fairly well controlled lipids, will continue current regiment 02/11/2025 Pure hypercholesterolemia (ICD-10 - E78.00) 02/14/2024 Essential hypertensi on (ICD-10 - I10) 02/21/2024 Coronary artery dise ase involving [place] coronary artery of [place] heart without angina pectoris (ICD-10 - I25.10) not having any chest pains. is on statins 08/20/2024 Prediabetes (ICD-10 - R73.09) well controllled with a great a1c, no need for medication at this time 02/11/2025 Vitamin D deficiency (ICD-10 - E55.9) 02/21/2024 Vitamin D deficiency (ICD-10 - E55.9) stable, will control current regiment 08/20/2024 Pure hypercholesterolemia (ICD-10 - E78.00) stable, will continue current regiment 02/11/2025 Essential hypertensi on (ICD-10 - I10) 02/21/2024 Depression screening (ICD-10 - Z13.31) negative screen Plan Of Treatment Pending Test Test Name Order Date Electrocardiogram (EKG) 09/16/2015 Electrocardiogram (EKG) 10/21/2017 XR CHEST 2 VIEW PA & LAT 06/18/2024 XR RIBS LT 08/20/2021 Complete Blood Count Auto Diff 5 Comprehensive Lavina. Panel Fast 5 Microalbumin, Random 02/11/2025 US renal BI 03/26/2021 XR thoracic spine 3V 08/20/2021 US renal BI 03/31/2021 US renal BI 02/13/2021 UA ClnCatch+Micro w/rflx Cult 02/11/2025 Next Appt Details Provider Name:Gavin Ortega ier, 02/21/2025 11:00:00 AM, [address] [place] [address], [address], [place], [place], [id number], Insurance Providers Payer Name Payer Address Payer Phone Subscriber Number Group Number Insured Name Patient Relationship to Insured Coverage Start Date Coverage End Date MEDICARE NHIC [address] [place] [address] [id number] Malorie Duvall Self - patient is the insured [employer] [place] [place] [address] [place] [phone] [id number] Malorie Duvall Self - patient is the insured Medical (General) History Medical History History ICD Code colonoscopy 2002 due in had colonosco py and ct colon study 03/09 had cath 2018 showed 65% and 40% that th ey did not stent dr davila hematuria w/u in 2019 cologuard 12/19/20 negative
== END 2025-02-11 10:29 | disposition home or self-care (01) ==
LOC: HO.LNP 10:28
PROVIDERS: Visit Provider Internal Medicine
DX: Z00.00 Encounter for general adult medical examination without abnormal findings (principal); R73.03 Prediabetes; E55.9 Vitamin D deficiency, unspecified; I10 Essential (primary) hypertension
CPT/HCPCS: 80053; 80061; 81001; 82043; 82306; 82570; 83036; 85025